=== PATIENT | female | born 1995 | race Caucasian/White ===

== ENCOUNTER 2020-08-21 09:53 | Emergency (ER) | payer MEDICAID, SELFPAY ==
[2020-08-21 10:18] VITALS: BP 131/89; PULSE 74; RESP 19; TEMP 36.9; O2SAT 100; BMI 20.5
--- NOTE | 2020-08-21 10:35 | HMH.EDUTC ---
[facility] [place] Disposition Clinical Impression: Sinusitis Qualifiers: Sinusitis location: maxillary Chronicity: acute Recurrence: non-recurrent Qualified Code(s): J01.00 - Acute maxillary sinusitis, unspecified Disposition: Home, Self-Care Condition on Discharge: Good Instructions: Sinusitis, DI for Sinusitis Additional Instructions: Start antibiotic patient to take as ordered for a full length of time even if you feel better. Sinus infections do not get better overnight. It may take 2-3 days to notice much improvement so be sure to use conservative measures as discussed for symptoms. Increase fluids Humidifier/vaporizer as needed Tylenol and ibuprofen as needed for fever or pain. If symptoms do not improve or get worse return or be seen in the ER Follow-up with primary care this week Prescriptions: Azithromycin [Zithromax 250mg tab] 250 mg PO DIRECTED #6 tab Transmission Status: Pending to [facility]/pharmacy #[id number] Referrals: Elisabeth Rock CNM [Primary Care Provider] - Time of Disposition: 11:16 Medical Decision Making - Georges Inquiry Pt receiving controlled substance: No Vital Signs: 08/21/20 10:18 Temperature 98.4 F Temperature Source Oral Pulse Rate [Right Brachial] 74 Respiratory Rate 19 Blood Pressure [Right Arm] 131/89 Blood Pressure Mean [Right Arm] 103 Blood Pressure Source [Right Arm] Automatic Cuff Blood Pressure Position [Right Arm] Sitting 02 Sat by Pulse Oximetry 100 Oxygen Delivery Method Room Air Orders (Tests/Meds): ORDERS Category Date Time Status Covid-19 Nasal PCR ([facility]) Routine Lab 08/21/20 10:40 Received [facility] [place] HPI - General Chief complaint: Urgent [facility] Stated complaint: head congestion Time Seen by Provider: 08/21/20 10:35 Mode of Arrival: Ambulatory Source of Information: Patient Limitations: No Limitations Description of Symptoms (Recalled from Triage Doc. by RN): PATIENT C/O BODY ACHES, SINUS PRESSURE, AND COUGH SINCE YESTERDAY HEENT Symptoms (Recalled from RN notes): Yes Resp Symptoms (Recalled from RN notes): Yes Skin Symptoms (Recalled from RN notes): No MS Symptoms (Recalled from RN notes): No Functional Status (Recalled from RN notes): WNL - History of Present Illness Provider Complaint: 25-year-old female presents for her green nasal congestion, pt states drainage started out clear and has changed to green thick.sinus pressure, sinus tenderness, cough and sore throat x2 days. Patient states low-grade fever. Patient states no ill contacts. Patient states she is 6 weeks . - Related Data Previous Rx's Medication Instructions Recorded Azithromycin [Zithromax 250mg 250 mg PO DIRECTED #6 tab 08/21/20 tab] Allergies Allergy/AdvReac Type Severity Reaction Status Date / Time No Known Allergies Allergy Verified 08/21/20 10:21 - Worker's Comp Is this a Worker's Comp case?: No [facility] History - Hepatitis A Screen Drug use history?: No High risk sexual behaviors?: No History of sexually transmitted infection?: No Currently employed?: No Childcare worker?: No Do you have indoor plumbing?: Yes Do you have electricity?: Yes Attestation statement:: This patient has been screened for Hepatitis A risk factors. I have reviewed the patient's past medical history: Yes - Social History Alcohol Intake: never Occupational Status: other ROS Obtained: Yes Systems reviewed as appropriate & no additional complaints - Constitutional Constitutional: Reports system reviewed and no additional complaints, except as docu, Reports body ache, Reports fever(s) - Eyes Eyes: Reports system reviewed and no additional complaints, except as docu, Denies dry eyes - ENT Ears, Nose, Mouth, and Throat: Reports system reviewed and no additional complaints, except as docu, Reports headache(s), Reports nasal congestion, Reports nasal discharge, Reports post nasal drip, Reports sinus pain, Reports sinus pressure, Reports sore throat - Card
[2020-08-21 11:23] VITALS: BP 131/89; PULSE 74; RESP 19; TEMP 36.9; O2SAT 100
[2020-08-21 14:28] LABS: UTC Influenza A Antigen Negative (Negative); UTC Influenza B Antigen Negative (Negative)
== END 2020-08-21 11:25 | disposition home or self-care (01) ==
PROVIDERS: Emergency Provider Nurse Practitioner Family; PCP Advanced Practice Midwife
DX: Z20.828 Contact with and (suspected) exposure to other viral communicable diseases (principal); J01.00 Acute maxillary sinusitis, unspecified
CPT/HCPCS: 87804; 99201; U0003

== ENCOUNTER 2024-09-19 09:02 | Emergency (ER) | payer BC, SELFPAY ==
--- OUTSIDE RECORDS SUMMARY | 2024-09-19 09:08 | XMS_ITS | Encounter Summary ---
Author Organization [facility] Address [address] [place] [address] Care Team Providers Care Cigar Maker Name Role Phone Pcp, No Primary Care Provider Unavailabl e Reason for Visit * Reason Comments Nurse Visit Pre-op COVID swab Encounter Details Date Type Department Care Team (Latest Contact Info) Description 01/22/2022 3:15 PM EDT Clinical Support Medical Office Building Obstetrics and Gynecology [address], [address] [place] [address] Healthcare maintenance Social History Tobacco Use Types Packs/Day Years Used Date Smoking Tobacco: Never Smokeless Tobacco: Never Alcohol Use Standard Drinks/Week Comments Never 0 (1 standard drink = 0.6 oz pur e alcohol) Comments No Sex and Gender Information Value Date Recorded Sex Assigned at Not on file Legal Sex Female 6:27 PM EDT Gender Identity Female 04/27/2021 10:22 AM EDT Sexual Orientation Not on file COVID-19 Exposure Response Date Recorded In the last month, have you been in contact with someone who was confirmed or suspected to have Coronavirus / COVID-19? No / Unsure 01/22/2022 1:26 PM EDT documented as of this encounter Miscellaneous Notes * Progress Notes - Bassam Hayward, RN - 01/22/2022 3:15 PM EDT Encounter for pre-operative COVID swab prior to surgery scheduled with Dr. Dumas on 01/24/22. Procedure reviewed and verbal consent obtained prior to testing. Tolerated well. Specimen walked to the lab. documented in this encounter Plan of Treatment Upcoming Encounters Date Type Department Care Team (Late st Contact Info) Description 09/21/2024 2:00 PM EST Office Visit [facility] [address], [address] [place] [address] Mitra Callaway APRN, CNM [address] [place] [address] documented as of this encounter Procedures Procedure Name Priority Date/Time Associated Diagnosis Comments SARS COV-2/COVID-19 BY PCR Routine 01/22/2022 3:11 PM EDT Healthcare maintenance documented in this encounter Results * SARS CoV-2/COVID-19 by PCR (01/22/2022 3:11 PM EDT) SARS CoV-2/COVID-1 9 RNA PCR Result Not Detected Not Detected 01/23/2022 2:43 AM EDT [facility] Swab Nasopharyngeal structure / Unknown Non-blood Collection / Unknown 01/22/2022 3:11 PM EDT 01/22/2022 4:24 PM EDT Narrative [facility] - 01/23/2022 2:43 AM EDT This assay is for in vitro diagnostic use under FDA emergency use authorization only. Negative results do not preclude infection with the SARS CoV-2 virus and should not be the sole basis of a patient treatment/management or public health decision. Follow up testing should be performed according to the current CDC recommendations. This test was performed using the TaqPath COVID-19 assay, an [id number] method. The limit of detection (LoD) for this assay is 250 copies/mL. Use of the TaqPath COVID-19 assay in an asymptomatic screening population is intended to be used as part of an infection control plan that may include additional preventative measures, such as a predefined serial testing plan or directed testing of high-risk individuals. Negative results should be considered presumptive and do not preclude current or future infection obtained through community transmission or other exposures. Negative results must be considered in the context of an individual's recent exposures, history, presence of clinical signs and symptoms consistent with COVID-19. us Hugo Dumas MD LAB MICROBIOLOGY - GENERAL OR DERABLES Final Result [facility] [address] [place] [address] documented in this encounter Visit Diagnoses Diagnosis Healthcare maintenance documented in this encounter Care Teams Cigar Maker Relationship Specialty Start Date End Date Pcp, No PCP - General 04/06/21 05/22/24 documented as of this encounter
--- OUTSIDE RECORDS SUMMARY | 2024-09-19 09:08 | XMS_ITS | Encounter Summary ---
Author Organization [facility] Address [address] [place] [address] Care Team Providers Care Plant Engineering Supervisor Name Role Phone Pcp, No Primary Care Provider Unavailabl e Encounter Details Date Type Department Care Team ([facility] Contact Info) Description 12/14/2021 Telephone Medical Office Building Obstetrics and Gynecology [address], [address] [place] [address] [place] [address] Social History Tobacco Use Types Packs/Day Years [...] have Coronavirus / COVID-19? No / Unsure 12/14/2021 8:44 AM EST documented as of this encounter Miscellaneous Notes * Telephone Encounter - Rochelle Tierney - 12/14/2021 11:30 AM EST Attempt to contact patient, left voice mail. documented in this encounter Plan of Treatment Upcoming Encounters Date Type Department Care Team ([facility] Contact Info) Description 09/21/2024 2:00 PM EST Office Visit [facility] [address], [address] [place] [address] Mitra Callaway APRN, CNSiddharth [address] [place] [address] documented as of this encounter Visit Diagnoses Not on filedocumented in this encounter Care Teams Plant Engineering Supervisor Relationship Specialty Start Date End Date Pcp, No PCP - General 04/06/21 05/22/24 documented as of this encounter
--- OUTSIDE RECORDS SUMMARY | 2024-09-19 09:08 | XMS_ITS | Encounter Summary ---
Author Organization Healthcare Address [address] [place] [address] Care Team Providers Care Bath Mixer Name Role Phone Pcp, No Primary Care Provider Unavailabl e Reason for Visit * Auth/Cert Specialty Diagnoses / Procedures Referred By Contac t Referred To Contact Diagnoses Sterilization consult Sterilization consult [Z30.09] Procedures MN LAP,TUBAL CAUTERY MN LAP,RMV ADNEXAL STRUCTURE LAPAROSCOPIC BILATERAL SALPINGECTOMY Hugo Dumas MD [address] [address] Phone: tel: fax: [facility] Operating Room [address] [place] [address] Phone: tel: Referral ID Status Reason Start Date Expiration Date Visits Re quested Visits Authorized [id number] 1 1 Encounter Details Date Type Department Care Team (Late st Contact Info) Description 01/24/2022 7:30 AM EDT - 01/24/2022 9:30 AM EDT Surgery [facility] Operating Room [address] [place] [address] Hugo Dumas MD [address] [address] LAPAROSCOPIC BILATERAL SALPINGECTOMY [51026 (CPT??)] Surgery Details Date/Time Status Location OR Service Patient Class Case Class Case Type Trauma Case? 01/24/2022 7:30 AM Posted [facility] 04 [facility] Outpatient Surgery E-Electi ve Panel 1 Procedure LRB Anes Op Region Wound Class Comments LAPAROSCOPIC BILATERAL SALPINGECTOMY Bilateral General Class I/ Clean Surgeon Surgeon Role Service Panel Hugo Dumas MD Primary Gynecology 1 Maida Cooper MD Resident - Assisting 1 documented in this encounter Social History Tobacco Use Types Packs/Day Years [...] have Coronavirus / COVID-19? No / Unsure 01/24/2022 6:15 AM EDT documented as of this encounter Last Filed Vital Signs Vital Sign Reading Time Taken Comments Blood Pressure 111/76 01/24/2022 9:15 AM EDT Pulse 78 01/24/2022 9:15 AM EDT Temperature 36.3 ??C (97.4 ??F) 01/24/2022 9:15 AM ED T Respiratory Rate 9 01/24/2022 9:15 AM EDT Oxygen Saturation 97% 01/24/2022 9:15 AM EDT Inhaled Oxygen Concentration - - Weight 51.6 kg (113 lb 12.1 oz) 01/24/2022 6:22 AM EDT Height 162.6 cm (5' 4 ) 01/24/2022 6:22 AM EDT Body Mass Index 19.53 01/24/2022 6:22 AM EDT documented in this encounter Discharge Instructions * Discharge Instructions* Aura Liu - 01/24/2022 9:06 AM EDT Tylenol 1,000mg given in PACU at 0900 AM today. * Attachments The following attachments cannot be sent through Care Everywhere. * Oxycodone Oral Capsule 5 mg (Maldivian) * Ibuprofen Oral Capsule 200 mg (Maldivian) * Laceration: Skin Adhesive (Maldivian) documented in this encounter Medications at Time of Discharge ibuprofen 600 MG tablet Take 1 tablet (600 mg total) by mouth every 6 (six) hours if needed for mild pain for up to 10 days. 30 tablet 01/24/2022 02/03/2022 oxyCODONE (Roxicodone) 5 MG immediate release tablet Take 1 tablet (5 mg total) by mouth every 4 (four) hours if needed for moderate pain or severe pain. 5 tablet 01/24/2022 03/25/2022 documented as of this encounter Miscellaneous Notes * Anesthesia PACU Signout - Sahil Corona MD - 01/24/2022 8:57 AM EDT Patient: Minda Ngo Anesthesia Type: general Vitals Value Taken Time BP 108/75 01/24/22 0845 Temp 36.3 ??C (97.3 ??F) 01/24/22 0830 Pulse 75 01/24/22 0856 Resp 13 01/24/22 0856 SpO2 98 % 01/24/22 0856 Vitals shown include unvalidated device data. Anesthesia PACU Signout Patient location during evaluation: PACU Level of consciousness: baseline Pain management: adequate (pain score 0-3) Airway patency: natural airway Hydration status: acceptable PONV: none Cardiovascular status: acceptable Respiratory status: acceptable Discharge Disposition: home Cosigned by Kingsley Meneses MD at 01/24/2022 9:14 AM EDT * Op Note - Maida Cooper MD - 01/24/2022 7:59 AM EDT Operative Note Date: 01/24/22 Location: [facility] OR Name: Minda Ngo, : 1995, Diagnoses: Pre-op Diagnosis Sterilization consult Post-op Diagnosis Sterilization consult Procedure(s): Laparoscopic bilateral salpingectomy Attending Surgeon(s): * Hugo Dumas - Primary Forestry Scientist(s): Maida Cooper MD Anesthesia: General ASA: II Blood Administration: Blood Product Administration History None Estimated Blood Loss: Minimal Drains: [REMOVED] Urethral Catheter Non-latex 16 Fr. (Removed) Specimen: Specimens ID Source Frozen? 1 Fallopian Tube, Bilateral Description: bilateral fallopian tubes Findings: 1. Normal appearing external genitalia, bilateral ovaries and fallopian tubes, cervix and uterus. Indications: Minda Ngo is an 26 y.o. female who is having surgery for Sterilization consult [Z30.09]. She desired permanent sterilization and had signed her KMA 12/14/21. All questions were answered and she understood all risks/benefits/alternatives. Narrative: After the consent was reviewed in the holding room, the patient was brought to the operating suite,where she was induced into GETA without complication. She was then placed in dorsal lithotomy position with her arms tucked, prepped and draped in sterile fashion, and a catheter was placed. A Avinger uterine manipulator was placed. An infraumbilical incision was then made, 5mm in size and a trocar was introduced via optiview technique. This was followed by placement of a right and left lateral trocar, 5mm in size. She was then placed in Trendelenburg position. The uterus was then elevated and retracted to the left. The left fallopian was elevated and sequentially ligated and transected, running from the fimbrae toward the cornea using Ligasure device. It was transected at the cornea and removed out of the 5mm trocar under direct visualization. The same process was completed on the right. Everything was found to be hemostatic. The trocars were then removed and all skin incisions were closed with 4-0 monocryl suture. All instruments were removed from the vagina. The patient was taken out of lithotomy position, extubated, and taken to the PACU in stable condition without a Schmidt catheter. Sponge, lap, and needle counts were correct x2. was present and scrubbed for the entirety of the procedure. Complications: None; patient tolerated the procedure well. Submitted by: Maida Cooper MD - 01/24/2022 - 8:42 AM Cosigned by Hugo Dumas MD at 01/27/2022 6:04 PM EDT Associated attestation - Hugo Dumas MD - 01/27/2022 6:04 PM EDT I was present for the entirety of the procedure(s). * Interval H&P Note - Maida Cooper MD - 01/24/2022 7:19 AM EDT H&P reviewed. The patient was examined and there are no changes to the H&P. Source Note - Hugo Dumas MD - 01/18/2022 3:45 PM EDT Gynecology Preoperative History and Physical Subjective Minda Ngo is a 26 y.o. here for a preoperative visit. Planned Procedure: Laparoscopic Bilateral Salpingectomy on 01/24/2022 HPI 26 yo scheduled for Laparoscopic Bilateral Salpingectomy on 01/24/2022. She is doing well today with no complaints. No changes in her medical history. Risks/benefits/alternatives to procedure discussed today and consent signed. All questions answered. Past 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 She has a past medical history of Chlamydia trachomatis infection in in third trimester (04/26/2021), COVID (06/2021), Depression, Encounter for routine follow-up, Irregular menstruation, unspecified, Other specified anxiety disorders, Personal history of other diseases of the nervous system and sense organs, Personal history of other infectious and parasitic diseases, Personal history of other specified conditions, Personal history of other specified conditions, and Personal history of urinary (tract) infections.She has no past medical history of Hepatitis B, Hepatitis C,or HIV disease (CMS/HCC). Past Surgical History She has no past surgical history on file. Social History She reports that she has never smoked. She has never used smokeless tobacco. She reports that she does not drink alcohol and does not use drugs. Family History Her family history includes Autism in an other family member; Melanoma in her paternal grandfather;Thyroid cancer in her father's sister; Thyroid disease in her paternal grandmother and paternal great-grandmother. Current Medications Current Outpatient Medications Medication Instructions ??? norethindrone (MICRONOR) 0.35 mg, Oral, Daily Allergies No Known Allergies Review of Systems Constitutional: Negative. Respiratory: Negative. Cardiovascular: Negative. Gastrointestinal: Negative. Endocrine: Negative. Genitourinary: Negative. Musculoskeletal: Negative. Neurological: Negative. Hematological: Negative. Psychiatric/Behavioral: Negative. Objective Visit Vitals BP 126/81 Body mass index is 19.68 kg/m??. Physical Exam Constitutional: Appearance: Normal appearance. Cardiovascular: Rate and Rhythm: Normal rate and regular rhythm. Heart sounds: Normal heart sounds. Pulmonary: Effort: Pulmonary effort is normal. Breath sounds: Normal breath sounds. Psychiatric: Mood and Affect: Mood normal. Behavior: Behavior normal. Thought Content: Thought content normal. Assessment/Plan 26 yo scheduled for Laparoscopic Bilateral Salpingectomy on 01/24/2022 ?? 1. Preop - Risks/benefits/alternatives to procedure discussed today and consent signed. All questions answered. KMA previously signed. * Significant Event - Azul Sandoval RN - 01/24/2022 6:16 AM EDT Di presurgery shower as directed by dr dumas's office * Preprocedure Instructions - Taylor Foster - 01/03/2022 1:46 PM EST Current Medications Medication Instructions ??? norethindrone (Micronor) 0.35 MG tablet Take morning of surgery General Preoperative Instructions You will be called the business day before surgery with your arrival time Do not eat or drink anything after midnight except water with your medications unless other instructions are given No alcohol or smoking prior to surgery Arrive on time to avoid delays Parking/Registration procedure explained You MUST have a responsible adult available for transport to and from hospital Visitation policy for the day of surgery reviewed Bring insurance card, photo ID, along with power of staff attorney, guardianship or advanced directives if applicable Do not bring money, jewelry or other valuables Hibiclens bathing instructions reviewed if applicable Notify surgeon of fever, illness, any changes or if you decide not to have surgery Pediatric patients under 12 years of age (If applicable) No solid food or milk after midnight Formula 6 hours prior to arrival for surgery Breast milk 4 hours prior to arrival surgery Clear liquids 2 hours prior to arrival for surgery Diabetes Instructions (If applicable) Take diabetes medication as instructed You may have up to 4 ounces of apple juice 2 hours prior to arrival for surgery for low glucose documented in this encounter Plan of Treatment Upcoming Encounters Date Type Department Care Team (Late st Contact Info) Description 09/21/2024 2:00 PM EST Office Visit [facility] [address], [address] [place] [address] Mitra Callaway, DANNIELLE, CNM [address] [place] [address] documented as of this encounter Procedures Procedure Name Priority Date/Time Associated Diagnosis Comments SURGICAL PATHOLOGY EXAM Routine 01/24/2022 8:09 AM EDT Sterilization consult MN LAP,TUBAL CAUTERY 01/24/2022 7:19 AM EDT Sterilization consult CBC W/O DIFFERENTIAL STAT 01/24/2022 6:41 AM EDT TYPE AND SCREEN Routine 01/24/2022 6:41 AM EDT POCT , URINE Routine 01/24/2022 6:20 AM EDT documented in this encounter Results * Surgical Pathology Exam (01/24/2022 8:09 AM EDT) Case Report Surgical Pathology ?Case: [id number] ? Authorizing Provider: ??Hugo Dumas MD ?Collected: ? 01/24/2022 0809 ? Ordering Location: ? [facility] Operating [facility] ? Received: ?01/24/2022 1033 ? Pathologist: ? Jessica White MD ? Specimen: ?Fallopian Tube, Bilateral, bilateral fallopian tubes ? 01/29/2022 8:22 AM EDT [facility] Final Diagnosis FALLOPIAN TUBES, BILATERAL SALPINGECTOMY: - Complete cross-sections of unremarkable fallopian tubes. 01/29/2022 8:22 AM EDT [facility] Clinical Information Sterilization 01/29/2022 8:22 AM EDT [facility] Gross Description A. BILATERAL FALLOPIAN TUBES Received in formalin labeled bilateral fallopian tubes , and consists of 2 red/purple, undesignated fallopian tubes with attached fimbriae measuring 4.4 x 1.7 x 0.4 cm- inked blue, and 5.3 x 2.1 x 0.6 cm. Sectioning reveals a pink pinpoint lumen. The fimbriae are longitudinally bisected. Retinal Angiographer sections are submitted in cassette A1. Nicole Nair 01/29/2022 8:22 AM EDT [facility] Note: A resident was involved in the service. I attest I examined the relevant preparations for the specimens and confirmed the diagnosis or interpretation. 01/29/2022 8:22 AM EDT [facility] Tissue Both fallopian tubes / Unknown 01/24/2022 8:09 AM EDT 01/24/2022 10:33 AM EDT Comment:Pre-op diagnosis: Sterilization consult [Z30.09] Hugo Dumas MD LAB PATHOLOGY ORDERABLES Dahiana l Result [facility] [address] [place] [address] * Type and screen (01/24/2022 6:41 AM EDT) ABO/Rh O Positive 01/24/2022 6:11 AM EDT BLOOD BANK Antibody Screen Negative 01/24/2022 6:11 AM EDT BLOOD BANK Blood Venous blood specimen / Unknown Venipuncture / Unknown 01/24/2022 6:41 AM EDT 01/24/2022 6:47 AM EDT Hugo Dumas MD LAB BLOOD BANK TEST ORDERABLE S Final Result BLOOD BANK [address] [place] [address], * CBC (01/24/2022 6:41 AM EDT) WBC Count 8.04 3.70 - 10.30 10*3/uL LAB HEMATOLOGY METHOD 01/24/2022 6:49 AM EDT [facility] RBC Count 4.82 3.90 - 5.20 10*6/uL LAB HEMATOLOGY METHOD 01/24/2022 6:49 AM EDT [facility] HGB 14.3 11.2 - 15.7 g/dL LAB HEMATOLOGY METHOD 01/24/2022 6:49 AM EDT [facility] HCT 42.7 34.0 - 45.0 % LAB HEMATOLOGY METHOD 01/24/2022 6:49 AM EDT [facility] Platelet Count 263 155 - 369 10*3/uL LAB HEMATOLOGY METHOD 01/24/2022 6:49 AM EDT [facility] MCV 89 79 - 98 fL LAB HEMATOLOGY METHOD 01/24/2022 6:49 AM EDT [facility] MCH 29.7 26.0 - 32.0 pg LAB HEMATOLOGY METHOD 01/24/2022 6:49 AM EDT [facility] MCHC 33.5 30.7 - 35.5 g/dL LAB HEMATOLOGY METHOD 01/24/2022 6:49 AM EDT [facility] RDW 11.9 11.5 - 14.5 % LAB HEMATOLOGY METHOD 01/24/2022 6:49 AM EDT [facility] MPV 8.9 8.8 - 12.5 fL LAB HEMATOLOGY METHOD 01/24/2022 6:49 AM EDT [facility] nRBC 0.0 <=0.0 per 100 WBCs LAB HEMATOLOGY METHOD 01/24/2022 6:49 AM EDT [facility] Blood Venous blood specimen / Unknown Venipuncture / Unknown 01/24/2022 6:41 AM EDT 01/24/2022 6:46 AM EDT us Hugo Dumas MD LAB BLOOD ORDERABLES Final Re sult [facility] [address] [place] [address] * POCT Urine (01/24/2022 6:20 AM EDT) Urine - Point of Care Negative - women after 7 weeks gestation and dilute urine (specific gravity <1.010) may have false negative results. Plasma HCG testing is recommended. Test performed at Point of Care. Negative - women after 7 weeks gestation and dilute urine (specific gravity <1.010) may have false negative results. Plasma HCG testing is recommended. Test performed at Point of Care. INTERNAL QC OK, PREG URINE ok KIT LOT NUMBER, PREG URINE [id number] KIT EXPIRATION DATE, PREG URINE 01/25/2023 Urine Urine specimen obtained by clean catch procedure / Unknown 01/24/2022 6:20 AM EDT us Hugo Dumas MD POINT OF CARE TEST ENTER/EDIT ORDERABLES Final Result documented in this encounter Visit Diagnoses Diagnosis Care and examination of lactating mother- Primary Sterilization consult Other general counseling and advice for contraceptive management Sterilization consult Other general counseling and advice for contraceptive management documented in this encounter Admitting Diagnoses Diagnosis Care and examination of lactating mother documented in this encounter Administered Medications Inactive Administered Medications - up to 3 most recent administrations Medication Order MAR Action Action Date Dose Rate Site acetaminophen (Tylenol) tablet 1,000 mg 1,000 mg, Oral, Once as needed, 1 dose, Starting on Sat01/24/22 at 0858, Until Sat01/24/22 at 0903, Routine, Recovery (Phase I only), mild pain, pain level >1 out of 10 Given 01/24/2022 9:03 AM EDT 1,000 mg bupivacaine PF (Marcaine) 0.25 % injection As needed, Starting on Sat01/24/22 at 0811, Until Sat01/24/22 at 0827, Routine, Intraprocedure Given 01/24/2022 8:11 AM EDT 7 mL Abdominal Tissue fentaNYL (Sublimaze) injection 50 mcg 50 mcg, Intravenous, As needed, 2 doses, Starting on Sat01/24/22 at 0821, Until Sat01/24/22 at 1156, Routine, Recovery (Phase I only), severe pain, pain score of 5 to 8 out of 10. For 2 doses only! HYDROcodone-acetaminoph en (Social Circle) 5-325 MG per tablet 1 tablet 1 tablet, Oral, Once as needed, 1 dose, Starting on Sat01/24/22 at 0821, Until Sat01/24/22 at 1156, Routine, Recovery (Phase I only), severe pain, for pain 3-4 out of 10 lactated Ringer's infusion 100 mL/hr, Intravenous, Once, 1 dose, On Sat01/24/22 at 0700, Routine New Bag 01/24/2022 6:54 AM EDT 100 mL/hr 100 mL/hr lactated Ringer's infusion 100 mL/hr, Intravenous, Continuous, Starting on Sat01/24/22 at 0845, Until Sat01/24/22 at 1156, Routine sodium chloride 0.9 % flush 10 mL 10 mL, Intravenous, Every 12 hours, First dose on Sat01/24/22 at 0700, Until Discontinued, Routine, Holding - Preprocedure documented in this encounter Active and Recently Administered Medications Times are shown in EDT. Scheduled Medication Order 01/22/2022 01/23/2022 01/24/2022 lactated Ringer's infusion (COMPLETED) 100 mL/hr, Intravenous, Once, 1 dose, On Sat01/24/22 at 0700, Routine 0654 (New Bag - Prov ider: Azul Sandoval RN) sodium chloride 0.9 % flush 10 mL(Linked Group 1) 10 mL, Intravenous, Every 12 hours, First dose on Sat01/24/22 at 0700, Until Discontinued, Routine, Holding - Preprocedure 0700 (Canceled Entry - Provider: Automatic Discharge Provider - Comment: Automatically canceled at discontinue of medication order) Continuous Medication Order 01/22/2022 01/23/2022 01/24/2022 lactated Ringer's infusion 100 mL/hr, Intravenous, Continuous, Starting on Sat01/24/22 at 0845, Until Sat01/24/22 at 1156, Routine 0845 (Canceled Entry - Provider: Automatic Discharge Provider - Comment: Automatically canceled at discontinue of medication order) PRN Medication Order 01/22/2022 01/23/2022 01/24/2022 acetaminophen (Tylenol) tablet 1,000 mg (COMPLETED) 1,000 mg, Oral, Once as needed, 1 dose, Starting on Sat01/24/22 at 0858, Until Sat01/24/22 at 0903, Routine, Recovery (Phase I only), mild pain, pain level >1 out of 10 0903 (Given - Provid er: Aura Liu) bupivacaine PF (Marcaine) 0.25 % injection (CANCELED) As needed, Starting on Sat01/24/22 at 0811, Until Sat01/24/22 at 0827, Routine, Intraprocedure 0811 (Given - Provid er: Hugo Dumas MD) fentaNYL (Sublimaze) injection 50 mcg 50 mcg, Intravenous, As needed, 2 doses, Starting on Sat01/24/22 at 0821, Until Sat01/24/22 at 1156, Routine, Recovery (Phase I only), severe pain, pain score of 5 to 8 out of 10. For 2 doses only! HYDROcodone-acetaminophen (Social Circle) 5-325 MG per tablet 1 tablet 1 tablet, Oral, Once as needed, 1 dose, Starting on Sat01/24/22 at 0821, Until Sat01/24/22 at 1156, Routine, Recovery (Phase I only), severe pain, for pain 3-4 out of 10 Linked Groups Order Group 1: Insert peripheral IV (CANCELED) Once, On Sat01/24/22 at 0633, For 1 occurrence, Holding - Preprocedure And Saline lock IV (CANCELED) Once, On Sat01/24/22 at 0633, For 1 occurrence, Holding - Preprocedure And sodium chloride 0.9 % flush 10 mLJump to med 10 mL, Intravenous, Every 12 hours, First dose on Sat01/24/22 at 0700, Until Discontinued, Routine, Holding - Preprocedure documented in this encounter Care Teams Bath Mixer Relationship Specialty Start Date End Date Pcp, No PCP - General 04/06/21 05/22/24 documented as of this encounter
--- OUTSIDE RECORDS SUMMARY | 2024-09-19 09:08 | XMS_ITS | Encounter Summary ---
Author Organization Healthcare Address [address] [place] [address] Care Team Providers Care Decorator Mannequin Name Role Phone Pcp, No Primary Care Provider Unavailabl e Encounter Details Date Type Department Care Team (Latest Contact Info) Description 01/22/2022 Travel Social History Tobacco Use Types Packs/Day Years [...] PM EDT documented as of this encounter Plan of Treatment Upcoming Encounters Date Type Department Care Team (Late st Contact Info) Description 09/21/2024 2:00 PM EST Office Visit [facility] [address], [address] [place] [address] Mitra Callaway APRN, CNM [address] [place] [address] documented as of this encounter Visit Diagnoses Not on filedocumented in this encounter Care Teams Decorator Mannequin Relationship Specialty Start Date End Date Pcp, No PCP - General 04/06/21 05/22/24 documented as of this encounter
--- OUTSIDE RECORDS SUMMARY | 2024-09-19 09:08 | XMS_ITS | Encounter Summary ---
Author Organization Healthcare Address [address] [place] [address] Care Team Providers Care Driver License Reviewing Officer Name Role Phone Pcp, No Primary Care Provider Unavailabl e Reason for Visit * Auth/Cert Specialty Diagnoses / Procedures Referred By Contac t Referred To Contact Diagnoses Sterilization consult Sterilization consult [Z30.09] Procedures AL LAP,TUBAL CAUTERY AL LAP,RMV ADNEXAL STRUCTURE LAPAROSCOPIC BILATERAL SALPINGECTOMY Hugo Dumas MD [address] [address] Phone: tel: fax: [facility] Operating Room [address] [place] [address] Phone: tel: Referral ID Status Reason Start Date Expiration Date Visits Re quested Visits Authorized [id number] 1 1 Encounter Details Date Type Department Care Team (Late st Contact Info) Description 01/24/2022 7:29 AM EDT Anesthesia Event [facility] Operating Room [address] [place] [address] Agnes Perez MD [address] [place] [id number] Anesthesia Record Procedure Summary Procedure Name Responsible Anesthesiologist Anesthesia Start Time Anesthesia Stop Time LAPAROSCOPIC BILATERAL SALPINGECTOMY (Bilateral) Agnes Perez MD 01/24/22 0729 01/24/22 0833 Events Date Time Event Comment 01/24/2022 0729 An Start 0734 In Room 0734 An Start Data 0738 An Induction The patient was reevaluated immediately before moderate or deep sedation use and before anesthesia induction. 0741 An Intubation 0747 Anesthesia Ready 0759 Proc Start 0819 Proc Fin 0824 An Extubation 0826 an stop data 0827 Out of Room 0829 AN Equip Check 0833 Handoff to Receiving I compl eted my handoff to the receiving clinician during which we: 1. Identified the patient 2. Identified the responsible provider 3. Reviewed the pertinent medical history 4. Discussed the surgical course 5. Reviewed intra-op anesthesia management and issues during anesthesia 6. Set expectations for post-procedure period 7. Allowed opportunity for questions and acknowledgement of understanding. 0833 An Stop Meds Name Total midazolam (Versed) injection 1 mg/mL 2 m g fentaNYL (Sublimaze) injection 50 mcg/mL 100 mcg lidocaine PF (Xylocaine-MPF) 2% 4 mL propofol (Diprivan) injection 10 mg/mL 1 50 mg rocuronium (ZeMuron) injection 10 mg/mL 40 mg dexamethasone (Decadron) injection 4 mg/ mL 4 mg HYDROmorphone PF (Dilaudid) injection 1 mg/mL 0.5 mg ondansetron (Zofran) injection 2 mg/mL 4 mg lactated Ringer's infusion 600 mL * Agents Name O2 N2O Air Sevoflurane Inspired Sevoflurane N2O Inspired N2O * Blood No blood administrations on file. Lines, Drains, and Airways Type Details Placement Removal Wound 01/24/22; 0759; N; Y es; Incision; Abdomen 01/24/22 0759 by Corine Red RN Peripheral IV Placement Date: 12/28 ; Placement Time: 638; Catheter Size: 20 G; Orientation: Posterior, Right; Location: Hand; Site Prep: Chlorhexidine ; Local Anesth: None; Technique: Anatomical landmarks; Inserted by: Azul Sandoval RN; Insertion Attempts: 1; Patient Tolerance: Tolerated well; Removal Date: 01/24/22; Removal Time: 924; Removal Reason: Discharge 01/24/22 06 by Azul Sandoval RN 01/24/22924 by Aura Liu ETT Placement Date: 12/28 ; Placement Time: 07 (created via procedure documentation); Mask Ventilation: 1; Technique: Direct laryngoscopy; Type: ETT - single; Single Lumen Tube Size: 7 mm; Cuffed: Yes; Laryngoscope: Castillo; Blade Size: 3; Location: Oral; Grade View: Grade I; Insertion Attempts: 1; Placement Verification: Auscultation, Capnometry; Placed by: MARIJA; Removal Date: 01/24/22; Removal Time: 0801/24/22 0741 by Hoa Funez CRNA 01/24/22 0824 by Hoa Funez CRNA Urethral Catheter Placement Date: 12/28 ; Placement Time: 0749; Inserted by: Maida Cooper; Type: Non-latex; Size: 16 Fr.; Balloon Size: 10 mL; Urine Returned: Yes; Removal Date: 01/24/22; Removal Time: 0801/24/22 0749 by Corine Red RN 01/24/22 0816 by Corine Red, RN documented in this encounter Social History Tobacco [...] AM EDT documented as of this encounter Miscellaneous Notes * Anesthesia Postprocedure Evaluation - Hoa Funez CRNA - 01/24/2022 8:33 AM EDT Patient: Minda Ngo Anesthesia Type: general Vitals Value Taken Time BP 121/77 01/24/22 0830 Temp 97.3 01/24/22 0833 Pulse 91 01/24/22 0831 Resp 17 01/24/22 0831 SpO2 100 % 01/24/22 0831 Vitals shown include unvalidated device data. Anesthesia Post Evaluation Patient location during evaluation: PACU Patient participation: complete - patient participated Level of consciousness: awake Pain management: adequate (pain score 0-3) Airway patency: natural airway Cardiovascular status: acceptable Respiratory status: acceptable, spontaneous ventilation and face mask Hydration status: acceptable No complications documented. * Anesthesia Procedure Notes - Hoa Funez CRNA - 01/24/2022 7:50 AM EDT Associated Order(s): Airway Airway Date/Time: 01/24/2022 7:41 AM Urgency: elective Airway not difficult General Information and Staff Patient location during procedure: OR MANAGER MOLECULAR: Hoa Funez CRNA Performed: MANAGER MOLECULAR Indications and Patient Condition Indications for airway management: anesthesia Spontaneous ventilation: present Preoxygenated: yes Patient position: sniffing Mask difficulty assessment: 1 - vent by mask No planned trial extubation Final Airway Details Final airway type: endotracheal airway Successful airway: ETT Cuffed: yes Successful intubation technique: direct laryngoscopy Facilitating devices/methods: intubating stylet Endotracheal tube insertion site: oral Blade: Castillo Blade size: #3 ETT size (mm): 7.0 Cormack-Lehane Classification: grade I - full view of glottis Placement verified by: chest auscultation and capnometry Measured from: lips ETT to lips (cm): 20 Number of attempts at approach: 1 Number of other approaches attempted: 0 * Anesthesia Preprocedure Evaluation - Lucius Laws MD - 01/24/2022 7:07 AM EDT Patient: Minda Ngo HPI 26 yo presents for permanent sterilization. She has a past medical history of Chlamydia trachomatis infection in in third trimester (04/26/2021), Depression. Presenting today for Lap Bilateral Salpingectomy. Procedure Information Date/Time: 01/24/22729 Procedure: LAPAROSCOPIC BILATERAL SALPINGECTOMY (Bilateral ) Location: [facility] OR Surgeons: Hugo Dumas MD Relevant Problems Anesthesia (within normal limits) Cardio (within normal limits) Endo (within normal limits) GI (within normal limits) /Renal (within normal limits) Neuro/Psych (within normal limits) Pulmonary (within normal limits) Clinical information reviewed: Med Hx Tobacco Allergies Surg Hx Fam Hx Soc Hx OB Status NPO Status Date of Last Liquid: 01/23/22 Time of Last Liquid: 1929 Date of Last Solid: 01/23/22 Time of Last Solid: 1929 Time of Last Void: 0615 Physical Exam Airway Mallampati: I Mouth opening: normal TM distance: >3 FB Neck ROM: full Cardiovascular - normal exam Dental - normal exam Pulmonary - normal exam Neurological - normal exam Oriented: normal to time, normal to place and normal to person and oriented to person, place and time Skin - normal exam Musculoskeletal - normal exam Extremities -normal exam Anesthesia Plan ASA 2 Anesthesia technique(s) discussed with the patient/family: General Anesthesia plan agreed upon was: general Anesthetic plan and risks discussed with patient. Additional Equipment Requests Cosigned by Agnes Perez MD at 01/24/2022 7:49 AM EDT documented in this encounter Plan of Treatment Upcoming Encounters Date Type Department Care Team (Late st Contact Info) Description 09/21/2024 2:00 PM EST Office Visit [facility] [address] [place] [address] Mitra Callaway APRN, CNM [address] [place] [address] documented as of this encounter Procedures Procedure Name Priority Date/Time Associated Diagnosis Comments PB ANESTHESIA PLACEHOLDER Routine 01/24/2022 7:41 AM EDT AL AN ELECTIVE ENDOTRACHEAL AIRWAY Routine 01/24/2022 7:41 AM EDT documented in this encounter Results * AL AN ELECTIVE ENDOTRACHEAL AIRWAY, PB ANESTHESIA PLACEHOLDER (01/24/2022 7:41 AM EDT) Narrative Hoa Funez CRNA - 01/24/2022 7:41 AM EDT Hoa Funez CRNA ? 01/24/2022 ??7:51 AM Airway Date/Time: 01/24/2022 7:41 AM Urgency: elective Airway not difficult General Information and Staff Patient location during procedure: OR MANAGER MOLECULAR: Hoa Funez CRNA Performed: MANAGER MOLECULAR Indications and Patient Condition Indications for airway management: anesthesia Spontaneous ventilation: present Preoxygenated: yes Patient position: sniffing Mask difficulty assessment: 1 - vent by mask No planned trial extubation Final Airway Details Final airway type: endotracheal airway Successful airway: ETT Cuffed: yes Successful intubation technique: direct laryngoscopy Facilitating devices/methods: intubating stylet Endotracheal tube insertion site: oral Blade: Castillo Blade size: #3 ETT size (mm): 7.0 Cormack-Lehane Classification: grade I - full view of glottis Placement verified by: chest auscultation and capnometry Measured from: lips ETT to lips (cm): 20 Number of attempts at approach: 1 Number of other approaches attempted: 0 us Agnes Perez MD ANESTHESIA ORDERABLES Final R esult documented in this encounter Visit Diagnoses Not on filedocumented in this encounter Administered Medications Inactive Administered Medications - up to 3 most recent administrations Medication Order MAR Action Action Date Dose Rate Site dexamethasone (Decadron) injection Intravenous, As needed, Starting on Sat01/24/22 at 0754, Until Sat01/24/22 at 08, Routine, Anesthesia Intraprocedure Given 01/24/2022 7:54 AM EDT 4 mg fentaNYL (Sublimaze) injection Intravenous, As needed, Starting on Sat01/24/22 at 0738, Until Sat01/24/22 at 08, Routine, Anesthesia Intraprocedure Given 01/24/2022 7:38 AM EDT 100 mcg HYDROmorphone PF (Dilaudid) injection Intravenous, As needed, Starting on Sat01/24/22 at 0759, Until Sat01/24/22 at 08, Routine, Anesthesia Intraprocedure Given 01/24/2022 7:59 AM EDT 0.5 mg lactated Ringer's infusion Intravenous, Continuous PRN, Starting on Sat01/24/22 at 0729, Until Sat01/24/22 at 0833, Routine New Bag 01/24/2022 7:29 AM EDT lidocaine PF (Xylocaine) 2 % injection Intravenous, As needed, Starting on Sat01/24/22 at 0738, Until Sat01/24/22 at 0833, Routine, Anesthesia Intraprocedure Given 01/24/2022 7:38 AM EDT 4 mL midazolam (Versed) injection Intravenous, As needed, Starting on Sat01/24/22 at 0732, Until Sat01/24/22 at 0833, Routine, Anesthesia Intraprocedure Given 01/24/2022 7:32 AM EDT 2 mg ondansetron (Zofran) injection Intravenous, As needed, Starting on Sat01/24/22 at 0814, Until Sat01/24/22 at 0833, Routine, Anesthesia Intraprocedure Given 01/24/2022 8:14 AM EDT 4 mg propofol (Diprivan) injection Intravenous, As needed, Starting on Sat01/24/22 at 0738, Until Sat01/24/22 at 0833, Routine, Anesthesia Intraprocedure Given 01/24/2022 7:38 AM EDT 150 mg rocuronium (ZeMuron) injection Intravenous, As needed, Starting on Sat01/24/22 at 0738, Until Sat01/24/22 at 0833, Routine, Anesthesia Intraprocedure Given 01/24/2022 7:38 AM EDT 40 mg documented in this encounter Care Teams Driver License Reviewing Officer Relationship Specialty Start Date End Date Pcp, No PCP - General 04/06/21 05/22/24 documented as of this encounter
--- OUTSIDE RECORDS SUMMARY | 2024-09-19 09:08 | XMS_ITS | Clinical Summary ---
Author Organization Healthcare Address [address] [place] [address] Care Team Providers Care Biomass Facilitator Name Role Phone Unavailable Primary Care Provider Unavailabl e Allergies No known active allergies Medications No known medications Active Problems Problem Noted Date Diagnosed Date Care and examination of lactating mother 021 Current mild episode of major depressive disorde r 04/06/2021 Resolved Problems Problem Noted Date Diagnosed Date Resolved Date Encounter for supervision of normal 04/27/20 21 06/13/2021 Chlamydia trachomatis infect ion in in third trimester 04/26/2021 06/13/2021 Overview (04/26/2021): S/p treatment 04/20 Encounter for supervision of low-risk first in second trimester 04/08/2017 06/13/2021 Immunizations Name Administration Dates Next Due Hep A, Adult 10/07/2018 Hep B, Adolescent or Pediatric (Deferred: Other - Documented on infant MAR) Influenza, injectable, quadr ivalent, preservative free 10/07/2018 Influenza, seasonal, injectable 08/30/2020 Tdap 02/01/2021,08/09/2017 Family History 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 Relation Name Comments Thyroid cancer Father's Sister Autism Other Melanoma Paternal Grandfather Thyroid disease Paternal Grandmother Thyroid disease Paternal Great-Grandmother Relation Name Status Comments Father's Sister Other Paternal Grandfather Paternal Grandmother Paternal Great-Grandmother Social History Tobacco Use Types Packs/Day Years [...] AM EDT Sexual Orientation Not on file Last Filed Vital Signs Vital Sign Reading Time Taken Comments Blood Pressure 117/74 03/06/2023 9:51 AM EDT Pulse 87 03/06/2023 9:51 AM EDT Temperature 36.3 ??C (97.4 ??F) 01/24/2022 9:15 AM ED T Respiratory Rate 9 01/24/2022 9:15 AM EDT Oxygen Saturation 97% 01/24/2022 9:15 AM EDT Inhaled Oxygen Concentration - - Weight 56.4 kg (124 lb 5.4 oz) 03/06/2023 9:51 A M EDT Height 162.6 cm (5' 4 ) 03/06/2023 9:51 AM EDT Body Mass Index 21.34 03/06/2023 9:51 AM EDT Plan of Treatment Upcoming Encounters Date Type Department Care Team (Late st Contact Info) Description 09/21/2024 2:00 PM EST Office Visit [facility] [address], [address] [place] [address] Mitra Callaway, NEURODIAGNOSTIC TECHNOLOGIST, CN [address] [place] [address] Health Maintenance Due Date Last Done Comments [facility]-Depression Screening 1996 [facility]-Infant/Child/Adol SDOH Screenings 1996 [facility]-Varicella Vaccines (1 of 2 - 13+ 2-dose series) 02/10/2009 [facility]- SDOH Screenings 02/10/2014 [facility]-Adult SDOH Screenings 02/10/2014 [facility]-Hepatitis B Vaccines (1 of 3 - 19+ 3-dose series) 02/10/2015 [facility]-Pap Smear 06/13/2024 06/13/2021, 10/10/2017 [facility]-FTFCE-05 Vaccine ( season) 2024 [facility]-Influenza Vaccine (#1) 06/28/202408/30, 10/07/2018, 08/02/2017, Additional history exists [facility]-DTaP,Tdap,and Td Vaccines (3 - Td or Tdap) 02/01/2031 02/01/2021, 08/09/2017 [facility]-Zoster Vaccines (1 of 2) 02/10/2046 [facility]-RSV Vaccine: 60+ Years or (1 - 1-dose 75+ series) 02/10/2071 [facility]-Hepatitis A Vaccines Aged Out 10/07/2018 No longer eligible based on patient's age to complete this topic [facility]-HIV Screening Completed 08/30/2020, 08/30/2020 [facility]-Hepatitis C Screening Completed 08/30/2020 [facility]-HIB Vaccines Aged Out No longer e ligible based on patient's age to complete this topic [facility]-HPV Vaccines Aged Out No longer e ligible based on patient's age to complete this topic [facility]-IPV Vaccines Aged Out No longer e ligible based on patient's age to complete this topic [facility]-Pneumococcal Vaccine: Pediatrics (0 to 5 Years) and At-Risk Patients (6 to 64 Years) Aged Out No longer eligible based on patient's age to complete this topic [facility]-Rotavirus Vaccines Aged Out No lo nger eligible based on patient's age to complete this topic Procedures Procedure Name Priority Date/Time Associated Diagnosis Comments PAP TEST - CYTOLOGY Routine 06/13/2021 2 :37 PM EDT Pap smear, as part of routine gynecological examination HEPATITIS C ANTIBODY W/REFLEX TO HCV QUANT PCR Routine 08/30/2020 10:01 AM EST HIV 1/2 ANTIBODY/ANTIGEN SCREEN WITH REFLEX TO HIV I/II DIFFERENTIATION Routine 08/30/2020 10:01 AM EST from Last 3 Months or Most Recently Relevant to Health Maintenance Results * Pap Test (06/13/2021 2:37 PM EDT) Case Report Cytology ?Case: [id number] ? Authorizing Provider: ??Mitra Callaway CNM ? Collected: ? 06/13/2021 1437 ? Ordering Location: ? [facility] Received: ?06/14/2021 0951 ? First Screen: ?Cristela Phillips, CT ? Rescreen: ?Dora Seth, CT ? Specimen: ?ThinPrep Pap Test, Liquid-Based Cervical/Vaginal, CERVICAL/VAGINAL ? 06/16/2021 3:59 PM EDT [facility] Interpretation NEGATIVE FOR INTRAEPITHELIAL LESION OR MALIGNANCY 06/16/2021 3:59 PM EDT [facility] Other Findings Inflammatory change. 06/16/2021 3:59 PM EDT [facility] Specimen Adequacy Satisfactory for evaluation; endocervical/ag sformation zone component present. Slide imaged by the ThinPrep Imaging system and selected 22 petit reviewed then full manual screening. 06/16/2021 3:59 PM EDT [facility] Cervical cytology is a screening test primarily for squamous cancers and precursors and has associated false negative and positive results. New technologies such as liquid based sampling may decrease but will not eliminate all false negative results. Regular screening and follow-up of unexplained clinical signs and symptoms are recommended to minimize false negative results. Please see the ASCCP website (www.asccp.org)fo r followup recommendations. If HPV testing was requested, correlation with the results is suggested (please call Microbiology at [phone] for results). 06/16/2021 3:59 PM EDT [facility] Menstrual Status Post- 021 3:59 PM EDT [facility] Contraceptive History Not Applicable 06/16/2021 3:59 PM EDT [facility] Last Menstrual Period 06/06/2020 06/16/2021 3:59 PM EDT [facility] Comment: Screening Type Routine Screen 2020 3:59 PM EDT [facility] High Risk? No 06/16/2021 3:59 PM EDT [facility] HPV Testing Requested? Request HPV testing if ASCUS or LSIL. 06/16/2021 3:59 PM EDT [facility] Previous Cancer History No 06/16/2021 3:59 PM EDT [facility] Swab Vaginal and cervical cytologic material / Unknown 06/13/2021 2:37 PM EDT 06/14/2021 9:51 AM EDT Mitra Callaway APRN, CNM LAB CYTOLOGY ORDERAB LES Final Result Performing Organization Address [facility] Co de Phone Number [facility] [address] [place] [address] * HIV 1 & 2 Antibody/Antigen Screen (08/30/2020 10:01 AM EST) Pathologist [facility] HIV 1 Result NONREACTIVE Screening for HIV 1 and 2 antibodies is NONREACTIVE. No confirmatory testing is required. [facility] 08/30/2020 10:0 1 AM EST 08/30/2020 11:53 AM EST Mitra Callaway APRN, COMPA LAB BLOOD ORDERABLES Final Result Performing Organization Address City/[facility]/ZIP Co de Phone Number [facility] * Hepatitis C Antibody (08/30/2020 10:01 AM EST) Hepatitis C Antibody NEGATIVE Reference Range: Negative [facility] 08/30/2020 10:0 1 AM EST 08/30/2020 11:53 AM EST Mitra Callaway APRN, COMPA LAB BLOOD ORDERABLES Final Result [facility]QUEST from Last 3 Months or Most Recently Relevant to Health Maintenance Insurance ANTH Advance Directives * Full Code (Latest Code Status on File) Date Activated Date Inactivated Comments 04/27/2021 9:35 AM 04/29/2021 3:05 PM Question Answer Comments Patient has decision-making capacity? Yes
--- OUTSIDE RECORDS SUMMARY | 2024-09-19 09:08 | XMS_ITS | Encounter Summary ---
Author Organization Healthcare Address [address] [place] [address] Care Team Providers Care Laboratory Sampler Name Role Phone Pcp, No Primary Care Provider Unavailabl e Encounter Details Date Type Department Care Team (Latest Contact Info) Description 03/06/2023 Travel Social History Tobacco Use Types Packs/Day [...] AM EDT Sexual Orientation Not on file documented as of this encounter Plan of Treatment Upcoming Encounters Date Type Department Care Team (Late st Contact Info) Description 09/21/2024 2:00 PM EST Office Visit [facility] [address] [place] [address] Mitra Callaway APRN, COMPA [address] [place] [address] documented as of this encounter Visit Diagnoses Not on filedocumented in this encounter Care Teams Laboratory Sampler Relationship Specialty Start Date End Date Pcp, No PCP - General 04/06/21 05/22/24 documented as of this encounter
--- OUTSIDE RECORDS SUMMARY | 2024-09-19 09:08 | XMS_ITS | Encounter Summary ---
Author Organization Healthcare Address [address] [place] [address] Care Team Providers Care Oil Filters Inspector Name Role Phone Pcp, No Primary Care Provider Unavailabl e Encounter Details Date Type Department Care Team (Late st Contact Info) Description 03/14/2023 Abstract [facility] [address], [address] [place] [address] Keerthi Avila APRN, CNM [address] [place] [address] Social History Tobacco Use Types Packs/Day Years [...] 2:00 PM EST Office Visit [facility] [address], [address] [place] [address] Mitra Callaway APRN, CNM [address] [place] [address] documented as of this encounter Visit Diagnoses Not on filedocumented in this encounter Care Teams Oil Filters Inspector Relationship Specialty Start Date End Date Pcp, No PCP - General 04/06/21 05/22/24 documented as of this encounter
--- OUTSIDE RECORDS SUMMARY | 2024-09-19 09:08 | XMS_ITS | Encounter Summary ---
Author Organization Healthcare Address [address] [place] [address] Care Team Providers Care Sound Effects Person Name Role Phone Pcp, No Primary Care Provider Unavailabl e Reason for Visit * Auth/Cert Specialty Diagnoses / Procedures Referred By Contac t Referred To Contact Diagnoses Sterilization consult Sterilization consult [Z30.09] Procedures KS LAP,TUBAL CAUTERY [place] LAP,RMV ADNEXAL STRUCTURE LAPAROSCOPIC BILATERAL SALPINGECTOMY Hugo Dumas MD [address] [address] Phone: tel: fax: [facility] [address] [place] [address] Phone: tel: Referral ID Status Reason Start Date Expiration Date Visits Re quested Visits Authorized [id number] 1 1 Encounter Details Date Type Department Care Team (Latest Contact Info) Description 01/24/2022 5:22 AM EDT - 01/24/2022 9:56 AM EDT Hospital Encounter [facility] [address] [place] [address] Hugo Dumas MD [address] [address] Sterilization consult Discharge Disposition: Home or Self Care Social History Tobacco Use Types Packs/Day Years [...] Everywhere. * Oxycodone Oral Capsule 5 mg (Puerto Rican) * Ibuprofen Oral Capsule 200 mg (Puerto Rican) * Laceration: Skin Adhesive ([place] Rican) documented in this encounter Medications at Time [...] AM EDT Operative Note Date: 01/24/22 Location: [facility] Name: Minda Ngo, : 1995, Diagnoses: Pre-op Diagnosis Sterilization consult Post-op Diagnosis Sterilization consult Procedure(s): Laparoscopic bilateral salpingectomy Attending Surgeon(s): Rayo Dumas - Primary Home Care Music Therapist(s): Maida Cooper MD Anesthesia: General ASA: II [...] fashion, and a catheter was placed. A Differential DynamicsticTictail uterine manipulator was placed. An infraumbilical incision [...] of Hepatitis B, Hepatitis C,or HIV disease ([facility]). Past Surgical History She has no past [...] card, photo ID, along with power of assistant attorney general, guardianship or advanced directives if applicable Do [...] 2:00 PM EST Office [facility] [address], [address] [place] [address] Mitra Callaway, DANNIELLE, CNM [address] [place] [address] documented as of this encounter Procedures Procedure Name Priority Date/Time Associated Diagnosis Comments SURGICAL PATHOLOGY EXAM Routine 01/24/2022 8:09 AM EDT Sterilization consult KS LAP,TUBAL CAUTERY 01/24/2022 7:19 AM EDT Sterilization consult CBC W/O DIFFERENTIAL STAT 01/24/2022 6:41 AM EDT TYPE AND SCREEN Routine 01/24/2022 6:41 AM EDT POCT , URINE Routine 01/24/2022 6:20 AM EDT documented in this encounter Results * Surgical Pathology Exam (01/24/2022 8:09 AM EDT) Case Report Surgical Pathology ?Case: [id number] ? Authorizing Provider: ??Hugo Dumas MD ?Collected: ? 01/24/2022 0809 ? Ordering Location: ? [facility] ? Received: ?01/24/2022 1033 ? Pathologist: ? Jessica White MD ? Specimen: ?Fallopian Tube, Bilateral, bilateral fallopian tubes ? 01/29/2022 8:22 AM EDT [facility] Final Diagnosis FALLOPIAN TUBES, BILATERAL SALPINGECTOMY: - Complete cross-sections of unremarkable fallopian tubes. 01/29/2022 8:22 AM EDT [facility] Clinical Information Sterilization 01/29/2022 8:22 AM EDT [facility] Gross Description A. BILATERAL FALLOPIAN TUBES Received in formalin labeled bilateral fallopian tubes , and consists of 2 red/purple, undesignated fallopian tubes with attached fimbriae measuring 4.4 x 1.7 x 0.4 cm- inked blue, and 5.3 x 2.1 x 0.6 cm. Sectioning reveals a pink pinpoint lumen. The fimbriae are longitudinally bisected. Wind Energy Project Manager sections are submitted in cassette A1. Nicole Nair 01/29/2022 8:22 AM EDT [facility] Note: A resident was involved in the service. I attest I examined the relevant preparations for the specimens and confirmed the diagnosis or interpretation. 01/29/2022 8:22 AM EDT [facility] Tissue Both fallopian tubes / Unknown 01/24/2022 8:09 AM EDT 01/24/2022 10:33 AM EDT Comment:Pre-op diagnosis: Sterilization consult [Z30.09] us Hugo Dumas MD LAB PATHOLOGY ORDERABLES Dahiana fair Result [facility] [address] [place] [address] * Type and screen (01/24/2022 6:41 AM EDT) ABO/Rh O Positive 01/24/2022 6:11 AM EDT BLOOD BANK Antibody Screen Negative 01/24/2022 6:11 AM EDT BLOOD BANK Blood Venous blood specimen / Unknown Venipuncture / Unknown 01/24/2022 6:41 AM EDT 01/24/2022 6:47 AM EDT us Hugo Dumas MD LAB BLOOD BANK TEST ORDERABLE S Final Result BLOOD BANK [address] [place] [address], * CBC (01/24/2022 6:41 AM EDT) WBC Count 8.04 3.70 - 10.30 10*3/uL LAB HEMATOLOGY METHOD 01/24/2022 6:49 AM EDT [facility] RBC Count 4.82 3.90 - 5.20 10*6/uL LAB HEMATOLOGY METHOD 01/24/2022 6:49 AM EDT [facility] HGB 14.3 11.2 - 15.7 g/dL LAB HEMATOLOGY METHOD 01/24/2022 6:49 AM EDT [facility] HCT 42.7 34.0 - 45.0 % LAB HEMATOLOGY METHOD 01/24/2022 6:49 AM EDT [facility] Platelet Count 263 155 - 369 10*3/uL LAB HEMATOLOGY METHOD 01/24/2022 6:49 AM EDT [facility] MCV 89 79 - 98 fL LAB HEMATOLOGY METHOD 01/24/2022 6:49 AM EDT [facility] MCH 29.7 26.0 - 32.0 pg LAB HEMATOLOGY METHOD 01/24/2022 6:49 AM EDT [facility] MCHC 33.5 30.7 - 35.5 g/dL LAB HEMATOLOGY METHOD 01/24/2022 6:49 AM EDT [facility] RDW 11.9 11.5 - 14.5 % LAB HEMATOLOGY METHOD 01/24/2022 6:49 AM EDT [facility] MPV 8.9 8.8 - 12.5 fL LAB HEMATOLOGY METHOD 01/24/2022 6:49 AM EDT [facility] nRBC 0.0 <=0.0 per 100 WBCs LAB HEMATOLOGY METHOD 01/24/2022 6:49 AM EDT [facility] Blood Venous blood specimen / Unknown Venipuncture / Unknown 01/24/2022 6:41 AM EDT 01/24/2022 6:46 AM EDT Hugo Dumas MD LAB BLOOD ORDERABLES Final Re sult [facility] [address] [place] [address] * POCT Urine (01/24/2022 6:20 AM EDT) [...] Given 01/24/2022 9:03 AM EDT 1,000 mg fentaNYL (Sublimaze) injection 50 mcg 50 mcg, Intravenous, As needed, 2 doses, Starting on Sat01/24/22 at 0821, Until Sat01/24/22 at 1156, Routine, Recovery (Phase I only), severe pain, pain score of 5 to 8 out of 10. For 2 doses only! HYDROcodone-acetaminophen ([place]) 5-325 MG per tablet 1 tablet 1 [...] of 10. For 2 doses only! HYDROcodone-acetaminophen ([place]) 5-325 MG per tablet 1 tablet 1 [...] Preprocedure documented in this encounter Care Teams Sound Effects Person Relationship Specialty Start Date End Date Pcp, No PCP - General 04/06/21 05/22/24 documented as of this encounter
--- OUTSIDE RECORDS SUMMARY | 2024-09-19 09:08 | XMS_ITS | Data Portability ---
Author Organization [place] [facility] Address [address] [place] [address] Assessment No assessment recorded. Plan of Treatment Reminders Order Date Submit Date Provider Last Modified By Organization Details Last Modified Time Details Appointments None recorded. Lab urinalysis , dipstick 2022 023 [email or web address] Not available 15:47:24 Referral None recorded. Procedures None recorded. Surgeries None recorded. Imaging None recorded. Medication Orders None recorded. Patient TargetsNo targets recorded. Patient InstructionsNo instructions recorded. Reason for Referral None Reported. Results Created Date Observation Date Name Description Value Unit Range Abnormal Flag Note LastModifiedBy Organization Detail LastModifiedTime 02/20/2002/19/2023 urina lysis , dipst ick Leukocytes (reference range) negati ve Not Available [address], [address], 02/19/2023 15:28:13 02/20/20 23 02/19/2023 urina lysis , dipst ick Nitrite (reference range:) negati ve Not Available [address], [address], 02/19/2023 15:28:13 02/20/20 23 02/19/2023 urina lysis , dipst ick Urobilinogen (reference range) 0.2 Not Available [address], [address], 02/19/2023 15:28:13 02/20/20 23 02/19/2023 urina lysis , dipst ick Protein (reference range) negati ve Not Available [address], [address], 02/19/2023 15:28:13 02/20/20 23 02/19/2023 urina lysis , dipst ick pH (reference range 5-8.5) 7.0 Not Available [address], [address], 02/19/2023 15:28:13 02/20/20 23 02/19/2023 urina lysis , dipst ick Blood (reference range:) negati ve Not Available [address], [address], 02/19/2023 15:28:13 02/20/20 23 02/19/2023 urina lysis , dipst ick Specific [place] (reference range) 1.020 Not Available [address], [address], 02/19/2023 15:28:13 02/20/20 23 02/19/2023 urina lysis , dipst ick Ketone (reference range) negati ve Not Available [address], [address], 02/19/2023 15:28:13 02/20/20 23 02/19/2023 urina lysis , dipst ick Bilirubin (reference range) negati ve Not Available [address], [address], 02/19/2023 15:28:13 02/20/20 23 02/19/2023 urina lysis , dipst ick Glucose (reference range) negati ve Not Available [address], [place], [address], 02/19/2023 15:28:13 02/20/2002/19/2023 urina lysis , dipst ick Color (reference range: yellow-brown ) Pale Yellow Not Available [address], [address], 02/19/2023 15:28:13 Result Notes None recorded. Medical Equipment None Reported. Allergies No known drug allergies Medications Name Sig Start Date Stop Date Status Note LastModified by Organization Details LastModified Time amoxicillin 500 mg capsule TAKE 1 CAPSULE BY MOUTH FOUR TIMES DAILY UNTIL GONE 02/19 completed Not Available Not Available Not Available hydrocodone 7.5 mg-acetamino phen 325 mg tablet TAKE 1 TABLET BY MOUTH EVERY 6 HOURS NEEDED 02/19 completed Not Available Not Available Not Available Vitals Date Recorded Body height Body mass index (BMI) Body weight Body temperature Oxygen saturation Oxygen saturation in Arterial blood by Pulse oximetry Heart rate Systolic blood pressure Diastolic blood pressure Provider Name and Address Organization Details Last Updated DateTime 3 162.56 cm 21.3 kg/m2 67107.4 5 g 98.7 [degF] 97 % 97 % 74 /min 119 mm[Hg] 78 mm[Hg] Javan Dunaway [facility] - [place] [facility] [place] 15:26:05 Social History None recorded. Functional Status None recorded. Mental Status None recorded. Family History Nothing Reported. 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 No medical history recorded. Gynecological HistoryNo gynecological history recorded. Obstetrics History GPAL:G 0 P 0 0 0 0 Immunizations Vaccine Type Date Status Provider Name and Address Organization Details Recorded Time Tdap 08/09/2017 completed RAMO Burch [facility] - [place] [facility] [place] 02/19/2023 15:26:19 Influenza, split virus, trivalent, PF 08/02/2017 completed RAMO Burch [facility] - [place] [facility] [place] 02/19/2023 15:26:19 Influenza, split virus, trivalent, PF 08/16/2016 completed RAMO Burch [facility] - [place] [facility] [place] 02/19/2023 15:26:19 Past Encounters Encounter ID Performer Location Encounter Start Date Encounter Closed Date Diagnosis/Indication Diagnosis SNOMED-CT Code Diagnosis ICD10 Code [id number] Cedrick Olvera MD [id number] [address] [address] 02/19/2023 15:03:42 02/19/2023 15:50:08 Urinary tract infectious disease 45105415 N39.0 Increased frequency of urination 595119661 R35.0 Health Concerns Section Related Observation LastModified by Organization Detai ls LastModified Time None Recorded Concern Status LastModified by Organization Details LastModified Time None Recorded Advance Directives Directive None Recorded Payers Encounter Date Sequence Insurance Name Policy Number Policy Demarco Covered Member ID Demarco Member ID Guarantor Name 02/19/2023 1 BCBS[employer] [id number] 1 [place] [id number] [place] Notes Date Note Type Note Provider Name and Address Organization Details Recorded Time 02/19/2023 text/html 28-year-old fema le here to become established patient. Patient reports some frequent urination. She did not have any true dysuria. No flank pain or suprapubic pain. She denies any discharge or vaginal irritation.Patient does drink a lot of caffeine.Patient also states she has trouble gaining weight. She is had thyroid checked in the past has been normal. She does eat 3 meals a day.Family history is significant for thyroid disease diabetes and skin cancer. Cedrick Olvera MD [address] [place] [address], [place], [address], [place] - [facility] [place] [facility] [place] 02/19/2023 15:46:01 OBGyn Episode No OBEpisode recorded.
--- OUTSIDE RECORDS SUMMARY | 2024-09-19 09:08 | XMS_ITS | Encounter Summary ---
Author Organization Healthcare Address [address] [place] [address] Care Team Providers Care Radio News Anchor Name Role Phone Pcp, No Primary Care Provider Unavailabl e Encounter Details Date Type Department Care Team (Latest Contact Info) Description 02/28/2023 Travel Social History Tobacco Use Types Packs/Day [...] 2:00 PM EST Office [facility] [address], [address] [place] [address] Mitra Callaway APRN, COMPA [address] [place] [address] documented as of this encounter Visit Diagnoses Not on filedocumented in this encounter Care Teams Radio News Anchor Relationship Specialty Start Date End Date Pcp, No PCP - General 04/06/21 05/22/24 documented as of this encounter
--- OUTSIDE RECORDS SUMMARY | 2024-09-19 09:08 | XMS_ITS | Encounter Summary ---
Author Organization Healthcare Address [address] [place] [address] Care Team Providers Care Coal Unloader Name Role Phone Pcp, No Primary Care Provider Unavailabl e Encounter Details Date Type Department Care Team (Latest Contact Info) Description 01/23/2022 Travel Social History Tobacco Use Types Packs/Day [...] have Coronavirus / COVID-19? No / Unsure 01/23/2022 12:40 PM EDT documented as of this encounter Plan of Treatment Upcoming Encounters Date Type Department Care Team (Late st Contact Info) Description 09/21/2024 2:00 PM EST Office [facility] [address], [address] [place] [address] Mitra Callaway APRN, CNM [address] [place] [address] documented as of this encounter Visit Diagnoses Not on filedocumented in this encounter Care Teams Coal Unloader Relationship Specialty Start Date End Date Pcp, No PCP - General 04/06/21 05/22/24 documented as of this encounter
--- OUTSIDE RECORDS SUMMARY | 2024-09-19 09:08 | XMS_ITS | Encounter Summary ---
Author Organization Healthcare Address [address] [place] [address] Care Team Providers Care Switchman Name Role Phone Pcp, No Primary Care Provider Unavailabl e Encounter Details Date Type Department Care Team (Latest Contact Info) Description 01/24/2022 Travel Social History Tobacco Use Types Packs/Day [...] AM EDT documented as of this encounter Plan of Treatment Upcoming Encounters Date Type Department Care Team (Late st Contact Info) Description 09/21/2024 2:00 PM EST Office [facility] [address], [address] [place] [address] Mitra Callaway APRN, CNM [address] [place] [address] documented as of this encounter Visit Diagnoses Not on filedocumented in this encounter Care Teams Switchman Relationship Specialty Start Date End Date Pcp, No PCP - General 04/06/21 05/22/24 documented as of this encounter
--- OUTSIDE RECORDS SUMMARY | 2024-09-19 09:08 | XMS_ITS | Encounter Summary ---
Author Organization [facility] Address [address] [place] [address] Care Team Providers Care Transportation Project Manager Name Role Phone Pcp, No Primary Care Provider Unavailabl e Encounter Details Date Type Department Care Team (Late st Contact Info) Description 03/06/2023 10:00 AM EDT Office Visit [facility] [address], [address] [place] [address] Keerthi Avila, PICK UP WORKER, CNM [address] [place] [address] Vaginal discharge (Primary Dx) Social History Tobacco Use Types Packs/Day Years [...] on file documented as of this encounter Last Filed Vital Signs Vital Sign Reading Time Taken Comments Blood Pressure 117/74 03/06/2023 9:51 AM EDT Pulse 87 03/06/2023 9:51 AM EDT Temperature - - Respiratory Rate - - Oxygen Saturation - - Inhaled Oxygen Concentration - - Weight 56.4 kg (124 lb 5.4 oz) 03/06/2023 9:51 A M EDT Height 162.6 cm (5' 4 ) 03/06/2023 9:51 AM EDT Body Mass Index 21.34 03/06/2023 9:51 AM EDT documented in this encounter Miscellaneous Notes * Progress Notes - Keerthi Avila APRN, CNM - 03/06/2023 10:00 AM EDT Gynecology Progress Note Subjective Minda presents today with report of increased discharge- was a clear/yellow in color but sometimes yellow/green. Noticing a fishy foul odor with discharge, worsened after intercourse. She also endorses increased low abdominal and pelvic pressure when voiding and increased urgency. She recently went to PCP and was tested for a UTI but was told all tests were normal. Prefers self swab today. 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 Has known history of chlamydia x1 in past so desires STI panel on MDL swab today. Does not take a daily probiotic. Review of Systems Objective Visit Vitals BP 117/74 (BP Location: Left arm, Patient Position: Sitting, BP Cuff Size: Adult) Pulse 87 Physical Exam Constitutional: Appearance: Normal appearance. Genitourinary: Genitourinary Comments: Deferred, pt prefers self swab Neurological: Mental Status: She is alert and oriented to person, place, and time. Psychiatric: Mood and Affect: Mood normal. Behavior: Behavior normal. Vitals reviewed. Assessment/Plan Assess/Plan SmartLinks: Diagnoses and all orders for this visit: Vaginal discharge -MDL self swab -discussed possible BV based on sxs, plan to await results to treat -prefers po treatment -rec probiotic daily, discussed boric acid suppositories -avoid douching, rec cotton underwear, avoid leggings/constricting clothing, karthikeyan for sleep, discussed factors that alter ph including menses and semen RTC: prn documented in this encounter Plan of Treatment Upcoming Encounters Date Type Department Care Team (Late st Contact Info) Description 09/21/2024 2:00 PM EST Office [facility] [address], [address] [place] [address] Mitra Callaway APRN, CNM [address] [place] [address] documented as of this encounter Visit Diagnoses Diagnosis Vaginal discharge- Primary Leukorrhea, not specified as infective documented in this encounter Care Teams Transportation Project Manager Relationship Specialty Start Date End Date Pcp, No PCP - General 04/06/21 05/22/24 documented as of this encounter
--- OUTSIDE RECORDS SUMMARY | 2024-09-19 09:08 | XMS_ITS | Encounter Summary ---
Author Organization Healthcare Address [address] [place] [address] Care Team Providers Care Aluminum Molder Name Role Phone Pcp, No Primary Care Provider Unavailabl e Reason for Visit * Reason Comments Pre-op Visit Encounter Details Date Type Department Care Team ([facility] st Contact Info) Description 01/18/2022 3:45 PM EDT Consult Medical Office Building Obstetrics and Gynecology [address] [facility], [address] [place] [address] Hugo Dumas MD [address] [facility] [address] [place] [address] Preop examination (Primary Dx) Social History Tobacco Use Types [...] have Coronavirus / COVID-19? No / Unsure 01/18/2022 2:38 PM EDT documented as of this encounter Last Filed Vital Signs Vital Sign Reading Time Taken Comments Blood Pressure 126/81 01/18/2022 3:34 PM EDT Pulse - - Temperature - - Respiratory Rate - - Oxygen Saturation - - Inhaled Oxygen Concentration - - Weight 52 kg (114 lb 10.2 oz) 01/18/2022 3:34 PM EDT Height - - Body Mass Index 19.68 12/14/2021 8:50 AM EST documented in this encounter Miscellaneous Notes * H&P - Hugo Dumas MD - 01/18/2022 3:45 [...] of Hepatitis B, Hepatitis C,or HIV disease ([facility]). Past Surgical History She has no [...] All questions answered. KMA previously signed. * Progress Notes - Hugo Dumas MD - 01/18/2022 3:45 PM EDT Gynecology Progress Note Subjective Preop Exam HPI 26 yo scheduled for Laparoscopic Bilateral Salpingectomy on 01/24/2022. She is doing well today with no complaints. No changes in her medical history. Risks/benefits/alternatives to procedure discussed today and consent signed. All questions answered. Review of Systems Constitutional: Negative. Respiratory: Negative. Cardiovascular: Negative. Gastrointestinal: Negative. Endocrine: Negative. Genitourinary: Negative. Musculoskeletal: Negative. Neurological: Negative. Hematological: Negative. Psychiatric/Behavioral: Negative. Objective Visit Vitals BP 126/81 Wt 52 kg (114 lb 10.2 oz) Yes BMI 19.68 kg/m?? OB Status Recent Smoking Status Never Smoker BSA 1.53 m?? Physical Exam Constitutional: Appearance: Normal appearance. Cardiovascular: Rate and Rhythm: Normal rate and regular rhythm. Heart sounds: Normal heart sounds. Pulmonary: Effort: Pulmonary effort is normal. Breath sounds: Normal breath sounds. Psychiatric: Mood and Affect: Mood normal. Behavior: Behavior normal. Thought Content: Thought content normal. Assessment/Plan 26 yo scheduled for Laparoscopic Bilateral Salpingectomy on 01/24/2022 1. Preop - Risks/benefits/alternatives to procedure discussed today and consent signed. All questions answered. KMA previously signed. documented in this encounter Plan of Treatment Upcoming Encounters Date Type Department Care Team (Late st Contact Info) Description 09/21/2024 2:00 PM EST Office Visit [facility] [address], [address] [place] [address] Mitra Callaway APRN, CNM [address] [place] [address] documented as of this encounter Visit Diagnoses Diagnosis Preop examination- Primary Unspecified pre-operative examination documented in this encounter Care Teams Aluminum Molder Relationship Specialty Start Date End Date Pcp, No PCP - General 04/06/21 05/22/24 documented as of this encounter
--- OUTSIDE RECORDS SUMMARY | 2024-09-19 09:08 | XMS_ITS | Encounter Summary ---
Author Organization Healthcare Address [address] [place] [address] Care Team Providers Care Telegraph Plant Maintainer Name Role Phone Pcp, No Primary Care Provider Unavailabl e Encounter Details Date Type Department Care Team (Latest Contact Info) Description 12/14/2021 Travel Social History Tobacco Use Types Packs/Day [...] AM EST documented as of this encounter Plan of Treatment Upcoming Encounters Date Type Department Care Team (Late st Contact Info) Description 09/21/2024 2:00 PM EST Office [facility] [address], [address] [place] [address] Mitra Callaway APRN, CNSiddharth [address] [place] [address] documented as of this encounter Visit Diagnoses Not on filedocumented in this encounter Care Teams Telegraph Plant Maintainer Relationship Specialty Start Date End Date Pcp, No PCP - General 04/06/21 05/22/24 documented as of this encounter
--- OUTSIDE RECORDS SUMMARY | 2024-09-19 09:08 | XMS_ITS | Encounter Summary ---
Author Organization Healthcare Address [address] [place] [address] Care Team Providers Care Geothermal Operations Engineer Name Role Phone Pcp, No Primary Care Provider Unavailabl e Encounter Details Date Type Department Care Team (Late st Contact Info) Description 08/02/2023 Telephone [facility] [address], [address] [place] [address] Mitra Callaway APRN, CN [address] [place] [address] Social History Tobacco Use Types [...] on file documented as of this encounter Miscellaneous Notes * Telephone Encounter - Noah Antony Subramanian - 08/02/2023 1:20 PM EDT Reports significant pain in R breast, she is unable to wear a bra because it's so tender. States she stopped nursing about 3-4 months ago but still has milk. Feels hardness under nipple, she thinks it is possibly a clog. She does state that her breast is red and streaky. Denies flu like symptoms. Reports being hot then chilled this morning but attributes to wearing a sweater and the temperatureoutside becoming warmer. She is unable to check her temperature at this time. Scheduled Saturday for an apt at the clinic. Discussed how to break up a clog, uncluidng massage, vibration, cold compress, steamy shower, hand expression, anti-inflammatory medications, etc. What is you recommendation? documented in this encounter Plan of Treatment Upcoming Encounters Date Type Department Care Team (Late st Contact Info) Description 09/21/2024 2:00 PM EST Office Visit [facility] [address], [address] [place] [address] Mitra Callaway, SLITTER CREASER SLOTTER HELPER, CN [address] [place] [address] documented as of this encounter Visit Diagnoses Not on filedocumented in this encounter Care Teams Geothermal Operations Engineer Relationship Specialty Start Date End Date Pcp, No PCP - General 04/06/21 05/22/24 documented as of this encounter
--- OUTSIDE RECORDS SUMMARY | 2024-09-19 09:08 | XMS_ITS | Encounter Summary ---
Author Organization Healthcare Address [address] [place] [address] Care Team Providers Care Elevator Mechanic Apprentice Name Role Phone Pcp, No Primary Care Provider Unavailabl e Encounter Details Date Type Department Care Team (Late st Contact Info) Description 03/14/2023 Abstract [facility] [address], [address] [place] [address] Keerthi Avila APRN, CNM [address] [place] [address] Social History Tobacco Use Types [...] 2:00 PM EST Office Visit [facility] [address], [address] [place] [address] Mitra Callaway APRN, CNM [address] [place] [address] documented as of this encounter Visit Diagnoses Not on filedocumented in this encounter Care Teams Elevator Mechanic Apprentice Relationship Specialty Start Date End Date Pcp, No PCP - General 04/06/21 05/22/24 documented as of this encounter
--- OUTSIDE RECORDS SUMMARY | 2024-09-19 09:08 | XMS_ITS | Encounter Summary ---
Author Organization Healthcare Address [address] [place] [address] Care Team Providers Care Oracle Adf Developer Name Role Phone Pcp, No Primary Care Provider Unavailabl e Encounter Details Date Type Department Care Team (Latest Contact Info) Description 01/18/2022 Travel Social History Tobacco Use Types Packs/Day [...] 2:00 PM EST Office [facility] [address], [address] [place] [address] Mitra Callaway APRN, CNM [address] [place] [address] documented as of this encounter Visit Diagnoses Not on filedocumented in this encounter Care Teams Oracle Adf Developer Relationship Specialty Start Date End Date Pcp, No PCP - General 04/06/21 05/22/24 documented as of this encounter
--- OUTSIDE RECORDS SUMMARY | 2024-09-19 09:09 | XMS_ITS | Encounter Summary ---
Author Organization Healthcare Address [address] [place] [address] Care Team Providers Care Tractor Distributor Name Role Phone Pcp, No Primary Care Provider Unavailabl e Encounter Details Date Type Department Care Team (Latest Contact Info) Description 04/13/2021 Travel Social History Tobacco Use Types Packs/Day Years Used Date Smoking Tobacco: Never Comments Yes Sex and Gender Information Value Date Recorded Sex Assigned at Not on file Legal Sex Female 6:27 PM EDT Gender Identity Female 04/27/2021 10:22 AM EDT Sexual Orientation Not on file COVID-19 Exposure Response Date Recorded In the last month, have you been in contact with someone who was confirmed or suspected to have Coronavirus / COVID-19? No / Unsure 04/13/2021 2:49 PM EDT documented as of this encounter Plan of Treatment Upcoming Encounters Date Type Department Care Team (Late st Contact Info) Description 09/21/2024 2:00 PM EST Office [facility] [address], [address] [place] [address] Mitra Callaway APRN, CNSiddharth [address] [place] [address] documented as of this encounter Visit Diagnoses Not on filedocumented in this encounter Care Teams Tractor Distributor Relationship Specialty Start Date End Date Pcp, No PCP - General 04/06/21 05/22/24 documented as of this encounter
--- OUTSIDE RECORDS SUMMARY | 2024-09-19 09:09 | XMS_ITS | Encounter Summary ---
Author Organization Healthcare Address [address] [place] [address] Care Team Providers Care Skid Worker Name Role Phone Unavailable Primary Care Provider Unavailabl e Encounter Details Date Type Department Care Team (Late st Contact Info) Description 09/09/2017 [facility] Vitals Encounter [facility] OUTPATIENT CONVERSIONS [address] [place] [address] ProviderElvis MD [address] [place], [place] [id number] Social History Tobacco Use Types Packs/Day Years Used Date Smoking Tobacco: Never Assessed Comments Unknown Sex and Gender Information Value Date Recorded Sex Assigned at Not on file Legal Sex Female 6:27 PM EDT Gender Identity Female 04/27/2021 10:22 AM EDT Sexual Orientation Not on file documented as of this encounter Last Filed Vital Signs Vital Sign Reading Time Taken Comments Blood Pressure - - Pulse - - Temperature - - Respiratory Rate - - Oxygen Saturation - - Inhaled Oxygen Concentration - - Weight 60.3 kg (133 lb 0.1 oz) 09/09/2017 3:19 P M EST Height 162.6 cm (5' 4 ) 09/09/2017 3:19 PM EST Body Mass Index 22.83 09/09/2017 3:19 PM EST documented in this encounter Plan of Treatment Upcoming Encounters Date Type Department Care Team (Late st Contact Info) Description 09/21/2024 2:00 PM EST Office [facility] [address], [address] [place] [address] Mitra Callaway APRN, CNM [address] [place] [address] documented as of this encounter Visit Diagnoses Not on filedocumented in this encounter
--- OUTSIDE RECORDS SUMMARY | 2024-09-19 09:09 | XMS_ITS | Encounter Summary ---
Author Organization [facility] Address [address] [place] [address] Care Team Providers Care Can Patcher Name Role Phone Pcp, No Primary Care Provider Unavailabl e Encounter Details Date Type Department Care Team (Late st Contact Info) Description 06/26/2021 Orders Only [facility] [address], [address] [place] [address] Macarena Palumbo, DANNIELLE, COMPA [address] [place] [address] Social History Tobacco Use Types Packs/Day Years Used Date Smoking Tobacco: Never Alcohol Use Standard Drinks/Week Comments [...] have Coronavirus / COVID-19? No / Unsure 06/23/2021 10:28 AM EDT documented as of this encounter Plan of Treatment Upcoming Encounters Date Type Department Care Team (Late st Contact Info) Description 09/21/2024 2:00 PM EST Office Visit [facility] [address], [address] [place] [address] Mitra Callaway, DANNIELLE, CNM [address] [place] [address] documented as of this encounter Visit Diagnoses Not on filedocumented in this encounter Care Teams Can Patcher Relationship Specialty Start Date End Date Pcp, No PCP - General 04/06/21 05/22/24 documented as of this encounter
--- OUTSIDE RECORDS SUMMARY | 2024-09-19 09:09 | XMS_ITS | Encounter Summary ---
Author Organization Healthcare Address [address] [place] [address] Care Team Providers Care Detasseling Crew Supervisor Name Role Phone Unavailable Primary Care Provider Unavailabl e Encounter Details Date Type Department Care Team (Late st Contact Info) Description 06/06/2017 Legacy AEHR Vitals Encounter [facility] OUTPATIENT CONVERSIONS [address] [place] [address] ProviderElvis MD [address] [place], [place] [id number] Social History Tobacco Use Types Packs/Day Years [...] - Inhaled Oxygen Concentration - - Weight 59.5 kg (131 lb 2.1 oz) 06/06/2017 3:07 P M EDT Height 162.6 cm (5' 4 ) 06/06/2017 3:07 PM EDT Body Mass Index 22.51 06/06/2017 3:07 PM EDT documented in this encounter Plan of Treatment Upcoming Encounters Date Type Department Care Team (Late st Contact Info) Description 09/21/2024 2:00 PM EST Office Visit [facility] [address], [address] [place] [address] Mitra Callaway, CONCRETE RUBBER, CNM [address] [place] [address] documented as of this encounter Visit Diagnoses Not on filedocumented in this encounter
--- OUTSIDE RECORDS SUMMARY | 2024-09-19 09:09 | XMS_ITS | Encounter Summary ---
Author Organization Healthcare Address [address] [place] [address] Care Team Providers Care Senior Accountant Cpa Name Role Phone Unavailable Primary Care Provider Unavailabl e Encounter Details Date Type Department Care Team (Late st Contact Info) Description 07/02/2017 Legacy AEHR Vitals Encounter [facility] OUTPATIENT CONVERSIONS [address] [place] [address] ProviderElvis MD [address] [place], [place] [id number] Social History Tobacco Use Types Packs/Day Years [...] - Inhaled Oxygen Concentration - - Weight 64.1 kg (141 lb 6.1 oz) 07/02/2017 3:36 P M EDT Height 162.6 cm (5' 4 ) 07/02/2017 3:36 PM EDT Body Mass Index 24.27 07/02/2017 3:36 PM EDT documented in this encounter Plan of Treatment Upcoming Encounters Date Type Department Care Team (Late st Contact Info) Description 09/21/2024 2:00 PM EST Office Visit [facility] [address] [place] [address] Mitra Callaway, BUSINESS ADMINISTRATOR, CNM [address] [place] [address] documented as of this encounter Visit Diagnoses Not on filedocumented in this encounter
--- OUTSIDE RECORDS SUMMARY | 2024-09-19 09:09 | XMS_ITS | Encounter Summary ---
Author Organization Healthcare Address [address] [place] [address] Care Team Providers Care Oil Exploration Engineer Name Role Phone Pcp, No Primary Care Provider Unavailabl e Reason for Visit * Auth/Cert Specialty Diagnoses / Procedures Referred By Contac t Referred To Contact Diagnoses Encounter for supervision of normal Rita Whitfield MD [address] [address] Phone: tel: fax: [facility] [address] [place] [address] Phone: tel: fax: Referral ID Status Reason Start Date Expiration Date Visits Re quested Visits Authorized [id number] 1 1 Encounter Details Date Type Department Care Team (Latest Contact Info) Description 04/27/2021 9:07 AM EDT - 04/29/2021 12:45 PM EDT Hospital Encounter [facility] [address] [place] [id number] Rita Whitfield MD [address] [address] Laurie Little MD [address] [address] Encounter for supervision of low-risk first in second trimester (Primary Dx) Discharge Disposition: Home or Self Care Social [...] Sign Reading Time Taken Comments Blood Pressure 135/81 04/29/2021 8:00 AM EDT Pulse 66 04/29/2021 8:00 AM EDT Temperature 36.7 ??C (98 ??F) 04/29/2021 8:00 AM EDT Respiratory Rate 14 04/29/2021 8:00 AM EDT Oxygen Saturation 99% 04/29/2021 8:00 AM EDT Inhaled Oxygen Concentration - - Weight 72.6 kg (160 lb) 04/27/2021 10:24 AM EDT Height 162.6 cm (5' 4 ) 04/27/2021 10:24 AM EDT Body Mass Index 27.46 04/27/2021 10:24 AM EDT documented in this encounter Discharge Instructions * Attachments The following attachments cannot be sent through Care Everywhere. * After Delivery: When to Call the Healthcare Provider ([place]) (Burmese) * After a Vaginal ([place]) ([place]) * , Breast Care After (Burmese) * Breast, (Burmese) * Sitz Bath, Taking a (Burmese) * Depression, (Burmese) documented in this encounter Medications at Time of Discharge acetaminophen (Tylenol) 325 MG tablet Take 2 tablets (650 mg total) by mouth every 6 (six) hours for 4 days. 30 tablet 04/29/2021 05/03/2021 docusate sodium 100 MG capsule Take 200 mg by mouth 2 (two) times a day for 10 days. 30 each 2 04/29/2021 05/09/2021 ibuprofen 600 MG tabletIndications :Mild to Moderate Pain Take 1 tablet (600 mg total) by mouth every 6 (six) hours for 10 days. 40 tablet 04/29/2021 05/09/2021 MV-Min-Fe Fum-FA-DHA ( Multi +DHA) 27-0.8-200 MG capsule TAKE 1 CAPSULE Daily 09/07/2020 06/23/2021 documented as of this encounter Miscellaneous Notes * Note - Elsy Godoy RN - 04/29/2021 11:41 AM EDT This note was copied from a baby's chart. Mother states going well and feels confident with . Breastfeed baby on cue, ensuring a minimum of 8 feedings in 24 hours. Watch your baby for signs of a good feeding such as long jaw movements, audible swallows, and consistent sucking with only brief pauses. Monitor your babies diapers. For each day old your baby is for the few days that is how manywet diapers they should have (3 days old, 3 wet diapers) , after day 6 they should continue to havea minimum of 6+ wet diapers daily. Your baby should poop 2-3 times a day and the color of the poop will change from black the first couple days, to green and then yellow. Continue to log your baby's feedings and diapers and take feeding log to your first jig worker appointment. It is normal for baby to cluster feed. Please refer to the community resource handout after you discharge home for places to call or go for help Praised Mother for her efforts with and encouraged to call for help as needed.. * Progress Notes - Keerthi Avila APRN, CNM - 04/29/2021 10:59 AM EDT S: No acute events overnight. Patient doing well, without complaints. Pain well controlled with PO medications. Lochia less than menses. Patient reports success with breast feeding. Tolerating po, no nausea/vomiting. Denies fever/chills and chest pain/shortness of air. O: VITALS Visit Vitals BP 135/81 (Patient Position: Lying) Pulse 66 Temp 36.7 ??C (98 ??F) (Oral) Resp 14 Ht 1.626 m (5' 4 ) Wt 72.6 kg (160 lb) SpO2 99% Yes BMI 27.46 kg/m?? OB Status Recent Smoking Status Never Smoker BSA 1.81 m?? I&O No intake or output data in the 24 hours ending 04/29/21 1059 PHYSICAL EXAM Constitutional: No acute distress, well appearing and well nourished. Cardiovascular: Normal rate and rhythm, no murmurs. No peripheral edema. Pulmonary: No increased work of breathing or signs of respiratory distress. Lungs clear to auscultation bilaterally. Abdomen: Soft, appropriately tender to palpation. Fundus firm and below umbilicus. Active bowel sounds Neurologic: Moves all extremities equally. Psychiatric: Mood and affect were normal. LABS @LABBRIEF@ A/P: 26 y.o. Post day #2 s/p 04/27/21 # Routine Post Care - voiding spontaneously - tolerating regular diet - encourage ambulation - pain well controlled with PO pain meds # Post Blood Loss/Anemia - hematocrit 33-33 - lochia appropriate # Infectious Complications - recent chlamydia infection, treated 04/20; anticipate [facility] outpatient pp - GBS positive- treated with PCN # Hypertensive Disorders - nl range BPs # Post Considerations - Breast/Bottle Feeding: breast - Blood Type: O Positive - Rubella Status: immune - Tdap Status: nursing to assess - Contraception: interval BTL, considering mini pill in interim # [place] Status -Viable Male infant -Desires Circumcision: Completed # FEN/Prophylaxis - REG/HLIV - SCD???s Dispo: Anticipate discharge today * Discharge Summary - Keerthi Avila APRN, CNM - 04/29/2021 7:18 AM EDT Hospitalization Admit Date/Time: 04/27/2021 9:07 AM Admitting Attending: Rita Whitfield Discharge Date: 04/29/21 Discharge Attending Physician: Laurie Little Md PCP name and Address: No Pcp (Inactive) None Referring provider name and address: No referring provider defined for this encounter. Chief Concern, Brief History of Present Illness, and Hospital Course Patient underwent vaginal delivery and remained in the hospital for 2 days. During that time she remained afebrile and hemodynamically stable. On the day of discharge, she was eating, ambulating and voiding without difficulty. Doing well this morning without complaints. Lochia less then menses. Denies pain. Surgeries and Procedures Spontaneous Vaginal Delivery Medication List .. acetaminophen 325 MG tablet Commonly known as: Tylenol Take 2 tablets (650 mg total) by mouth every 6 (six) hours for 4 days. DSS 100 MG capsule Take 200 mg by mouth 2 (two) times a day for 10 days. ibuprofen 600 MG tablet Take 1 tablet (600 mg total) by mouth every 6 (six) hours for 10 days. Multi +DHA 27-0.8-200 MG capsule Where to Get Your Medications These medications were sent to [facility] - [place], [place] - [address] [place] [address] ?? acetaminophen 325 MG tablet ?? DSS 100 MG capsule ?? ibuprofen 600 MG tablet Discharge Diagnosis Encounter for supervision of normal Active Hospital Problems *Encounter for supervision of normal Encounter for supervision of low-risk first in second trimester Follow-Up / Post Discharge Instructions Follow up 1 week in [facility] Call restaurant hourly team member clinic to schedule tubal ligation Outpatient Follow-Up No future appointments. Test Results Pending At Discharge None Pertinent Physical Exam At Time of Discharge Physical Exam Constitutional: General: She is not in acute distress. Appearance: Normal appearance. HENT: Head: Normocephalic. Nose: No congestion. Cardiovascular: Rate and Rhythm: Normal rate and regular rhythm. Pulses: Normal pulses. Heart sounds: No murmur heard. Pulmonary: Effort: Pulmonary effort is normal. Breath sounds: Normal breath sounds. Abdominal: General: Bowel sounds are normal. Palpations: Abdomen is soft. Neurological: General: No focal deficit present. Mental Status: She is alert. Psychiatric: Mood and Affect: Mood normal. Discharge Disposition/Condition Home in stable condition Follow up at 1 week post visit [facility] * Hospital Course - Julia Kim MD - 04/29/2021 1:09 AM EDT Patient underwent vaginal delivery and remained in the hospital for 2 days. During that time she remained afebrile and hemodynamically stable. On the day of discharge, she was eating, ambulating and voiding without difficulty. * Note - Elsy Godoy RN - 04/28/2021 5:11 PM EDT This note was copied from a baby's chart. Mother had baby latched effectively with baby rhythmically sucking and taking occasional swallow. Encouraged mother to use breast compression when baby is to help a baby transfer more breastmilk with feeding. To do breast compression, compress the breast when baby is suckling and whenbaby stops, release the breast. Reviewed baby behavior and cluster feeding. Praised Mother for her efforts with and encouraged to call for help as needed. * Anesthesia Post-op Follow-up Note - Marilyn Vu MD - 04/28/2021 11:12 AM EDT Patient: Minda N Jeni Procedures: LIGATION, FALLOPIAN TUBE, BILATERAL (Bilateral) Patient location: Labor and delivery Patient is s/p via FLORINDA. Denies headache, nausea, vomiting, paresthesias in bilateral lower extremities, or back pain. Able to ambulate, tolerate PO, and urinate without armas. No complaints. * Progress Notes - Phuong Calixto APRN, CNM - 04/28/2021 10:36 AM EDT Day 1 S: Minda Ngo had no acute events overnight. Patient doing well, without complaints. Pain well controlled with PO medications. Lochia less than menses. Patient reports success with breast feeding. Tolerating po, no nausea/vomiting. Ambulating and voiding without difficulty. She Has not had a bowel movement. Denies fever/chills and chest pain/shortness of air. Minda does desire tubal ligation during her stay. She last ate this morning at 0915. She signed the KMA form on 03/30/21, and has private insurance. O: VITALS Visit Vitals BP 120/64 Pulse 72 Temp 36.6 ??C (97.9 ??F) (Oral) Resp 13 Ht 1.626 m (5' 4 ) Wt 72.6 kg (160 lb) SpO2 99% Yes BMI 27.46 kg/m?? OB Status Recent Smoking Status Never Smoker BSA 1.81 m?? I&O Intake/Output Summary (Last 24 hours) at 04/28/2021 1037 Last data filed at 04/27/2021 2100 Gross per 24 hour Intake 96 ml Output 325 ml Net -229 ml PHYSICAL EXAM Constitutional: No acute distress, well appearing and well nourished. Cardiovascular: Normal rate and rhythm, no murmurs. No peripheral edema. Pulmonary: No increased work of breathing or signs of respiratory distress. Abdomen: Soft, appropriately tender to palpation. Fundus firm and below umbilicus. Active bowel sounds - Incision: Clean/Dry/Intact Perineum: healing, Psychiatric: Mood and affect were normal. A/P: 26 y.o. Post day #1 s/p # Routine Post care - voiding spontaneously - tolerating regular diet - encourage ambulation - pain well controlled with PO pain meds -Anticipate discharge tomorrow after rounds -Desires tubal ligation, will discuss plan with OB team given patient had breakfast this AM. # Post Blood Loss/Anemia - am H/H 33/11 # Infectious Complications -recent Chlamydia infection-treated 04/20/21 -Denies IC since treatment # Hypertensive Disorders -normal range BP -OPB this AM normal results # Chronic Medical Conditions -hx of anxiety/depression-normal mood today * Progress Notes - Samanta Zamora Elvira - 04/28/2021 10:22 AM EDT Case Management PEDS Progress Note Minda Ngo 26 y.o. female CSN: [id number] Anticipated Discharge Date: unknown Has Discharge Plans Changed? No Family Present? Yes mom and dad at bedside Is Patient Medically Ready for Discharge?No not medically ready Resource Information Provided for Patient/ Family: Not Applicable Additional Comments SW received consult due to mom testing positive for THC on 09/16/20. Other testing since August have been negative. SW met with mom, FOB, and baby at bedside and completed initial assessment. OB Initial Assessment Best Contact #: [phone] Physical Address: [address] [place] [address] Family has: car seat, baby supplies, WIC, family support Marital Status: Single Living Arrangements: mom, fob, baby, and 3yo sister Financial Information: parents are employed Employment Status: yes-Romaine Aldana Planned?: yes Adoption Plan: no Feeding Method: both Flanger: [facility] Do you have any other children? yes If your children live elsewhere who do they live with? NA Father's Name: Dallas Hi Father's Age: 28 Plan for involvement? yes Ethnicity: Employment: yes Occupation: [employer] Evaluation of Support: strong on both sides of family Education: Mid Wives History of Abuse/Neglect: denied DV History: denied Referrals Needed: NA Exposure to SHS/other smokers in the home: No Any form of tobacco used in last 12 months: No Alcohol Use: denied Street drug/inhalant/medication use: mom has only used marijuana Other Substance Use: denied DCBS History: denied Mental Health History: denied Legal History: denied Educational History: Mom graduated from [employer] in [place] and attended 3 semesters at [employer] for Accounting. AISHWARYA Recommendations: AISHWARYA explained to mom that if the baby's UDS or her UDS comes back positive for THC or any other illegal drug that SW has to report this to DCBS/Child Abuse Hotline. However, if the UDS's come back clean then SW will do nothing. SW will continue following for results of UDS on both baby and mom. SW requested that medical team put in orders for UDS on both mom and baby. SW updated medical team and nursing staff. Samanta Zamora * Care Plan - Yesica Michelle RN - 04/28/2021 8:41 AM EDT Problem: Adult Inpatient Plan of Care Goal: Plan of Care Review Outcome: Ongoing, Progressing Flowsheets (Taken 04/28/2021 08) Progress: improving Plan of Care Reviewed With: patient Goal: Patient-Specific Goal (Individualized) Outcome: Ongoing, Progressing Goal: Absence of Hospital-Acquired Illness or Injury Outcome: Ongoing, Progressing Goal: Optimal Comfort and Wellbeing Outcome: Ongoing, Progressing * Note - Coco Cortes RN - 04/28/2021 12:00 AM EDT This note was copied from a baby's chart. Consultation Assessment Note [facility] Patient Name: Zhanna Ngo Date: 04/28/2021 Time: 0000 Admission Date: 04/27/2021 Primary Care Physician: No primary care provider on file. Age: 1 days Sex: male Gestational Age of Infant: Unknown Weight of Infant: 3420 g Percent Weight Change Since : 0% Consultation: Reason for Consult: Initial assessment Maternal Information: Has mother breastfed before?: Yes How long did the mother previously breastfeed?: Breastfed first child, now 5 years old, for 18 months Previous Maternal Challenges: None LATCH: Latch: Grasps breast, tongue down, lips flanged, rhythmic sucking Audible Swallowing: A few with stimulation Type of Nipple: Everted (After stimulation) Comfort (Breast/Nipple): Soft/non-tender Hold (Positioning): No assist from staff, mother able to position/hold LATCH Score: 9 OB Tools: Breast Pump: Patient Follow-up: Follow-up Needed : Follow-up Follow-Up Type: Inpatient Additional Documentation: Mom given feeding log. Latches infant without difficulty, worked on deepening latch. Infant with rhythmic suckle and pauses noted. Mom denies pain with feeding. Reviewed feeding cues, baby behavior in first 24 hours, signs of good feeding and lactogenesis principles. Mom encouraged to ask for LC assistance. Maternal History: OB History: No obstetric history on file. Information Delivery type: Vaginal, Spontaneous Breech type (if applicable): Observed anomalies/comments: Complications: Labor complications: None Additional complications: at least 8 times in 24 hours. Coco Cortes RN Date: 04/28/2021 Time: 12:55 AM * L&D Delivery Note - Viet Jefferson APRN, CNM - 04/27/2021 9:15 PM EDT OB Vaginal Delivery Note 04/27/2021 Minda Ngo 26 y.o. Review the Delivery Report for details. Gestational Age: 40w2d /Para: Labor Complications: None Estimated Blood Loss: Delivery Blood Loss 04/27/21 0851 - 04/27/215 None Quantitative Blood Loss: 50 Delivery Type: Vaginal, Spontaneous ROM to Delivery Time: 4h 20m Sex: Male Weight: 1 Minute 5 Minute 10 Minute Totals: 8 9 Zhanna Ngo [[id number]] Delivery Providers Delivering clinician: Viet Jefferson CNM Provider Role Carie Sandoval, tube backer Assist Watson Severino RN Delivery Nurse Delivery Details: Minda Ngo, a 26 y.o. female delivered a viable Male infant with Apgars of 8 and 9. Delivery was via Vaginal, Spontaneous with Epidural anesthesia. Infant delivered in Vertex Occiput Anterior position. Anterior and posterior shoulders delivered without difficulty. After delayed cordclamping, the cord was clamped twice, cut and 3 vessels were noted. Intact placenta delivered at 04/27/2021 9:00 PM . Placental disposition was discarded . Fundal massage performed and fundus found to be firm. Perineum, vagina, cervix were inspected, and the following lacerations were noted: Zhanna Ngo [[id number]] Lacerations Episiotomy: None Perineal laceration: None Other lacerations?: No Repair suture: None The lacerations were repaired in the usual fashion using None . Excellent hemostasis was noted. Thesponge and needle counts were correct. Viet Jefferson CNM * H&P - Viet Jefferson APRN, CNM - 04/27/2021 9:37 AM EDT OB H&P Chief complaint I am here for my induction HPI Minda is a 26 y.o. @ 40w2d (04/25/21) here for elective induction of labor. Her is complicated by chlamydia treated 1 week prior ( no SIC since ), POS UDS for THC in early though repeat screens were all NEG. Reports good movement and denies vaginal bleeding, loss of fluid, fever, DHILLON, edema or SOA. Reports mild irregular contractions. Obstetrical History -G1: 2017, @ 41wks; epid; 7-0; female Antonietta ; [facility] ([facility]) -G2: current, planned GynHx: menarche-15, reg menses, last pap Sep 2017-ASCUS, - chlamydia treated March 2021 OB ULTRASOUNDS -US @ 6w0d (08/30/20): FHR+, LIZZY nl, size does not equal dates, new RAFAEL 04/25/21. Small intramural fibroid suspected. -US @ 20w0d (12/06/20): FHR 164, BREECH, post plac, XTT=712w, 3VC--adenike nal insertion, LIZZY nml, CL adequate, S=D, RAFAEL=04/25/21, Anatomy complete. FU @ 32wks -US @ 32wks (03/02/21) vtx, Posterior fundal placenta, PCI @2.47cm , FHR 138, BPP8/8 LIZZY 15 WNL, EFW 73%/AC 84%; UAD 56% nml; F/U 4 weeks for growth -US @ 36w3d ( 1): prelim-vtx; fundal plac; LIZZY 17cm; BPP 8/8; UAD nl; growth 71%, AC 80%; LABS Blood Type: O Positive Rubella: immune Hepatitis B: negative HIV: negative Syphilis: negative Glucola: 134 GTT: 70/118/100/84 (nl) Group B Strep: POS ( by urine ) TDAP: s/p 02/01/21 Past 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 She has a past medical history of Depression, Encounter for routine follow-up, Irregularmenstruation, unspecified, Other specified anxiety disorders, Personal history of other diseases ofthe nervous system and sense organs, Personal history of other infectious and parasitic diseases, Personal history of other specified conditions, Personal history of other specified conditions, and Personal history of urinary (tract) infections. She also has no past medical history of Hepatitis B, Hepatitis C, or HIV disease (CMS/HCC). Past Surgical History She has no past surgical history on file. Social History She reports that she has never smoked. She does not have any smokeless tobacco history on file. Shereports that she does not drink alcohol and does not use drugs. FOB: boyfriend [place] BABY: emelia [employer] Family History Her family history includes Autism in an other family member; Melanoma in her paternal grandfather;Thyroid cancer in her father's sister; Thyroid disease in her paternal grandmother and paternal great-grandmother. Current Medications Current Outpatient Medications Medication Instructions ??? azithromycin (Zithromax) 250 MG tablet Take 2 tablets (500 mg total) by mouth 1 (one) time eachday for 1 day, THEN 1 tablet (250 mg total) 1 (one) time each day for 4 days. ??? MV-Min-Fe Fum-FA-DHA ( Multi +DHA) 27-0.8-200 MG capsule TAKE 1 CAPSULE Daily Allergies No Known Allergies Review of Systems Constitutional: Negative. HENT: Negative. Respiratory: Negative. Gastrointestinal: Negative. Genitourinary: Negative. Neurological: Negative. Psychiatric/Behavioral: Negative. Objective Visit Vitals BP 119/70 Pulse 60 Temp 36.6 ??C (97.8 ??F) (Oral) Resp 19 Body mass index is 27.46 kg/m??. No intake or output data in the 24 hours ending 04/27/21 1248 CE: 3/60/-2 in clinic yesterday US: 130s, + Accels, - decels, MOD, CAT I TOCO: quiet Physical Exam Constitutional: Appearance: Normal appearance. Genitourinary: Vulva normal. HENT: Head: Normocephalic. Eyes: Pupils: Pupils are equal, round, and reactive to light. Cardiovascular: Rate and Rhythm: Normal rate and regular rhythm. Abdominal: Palpations: Abdomen is soft. Musculoskeletal: General: Normal range of motion. Neurological: Mental Status: She is oriented to person, place, and time. Skin: General: Skin is warm and dry. Psychiatric: Mood and Affect: Mood normal. Vitals reviewed. Labs: Labs in last 18 hours Assessment/Plan 26 y.o. presenting for IOL @ 40w2d # IOL - presentation: VTX by BSUS - Consent obtained - discussed plan of care and # Status - Non-stress test: reassuring # Group B Strep Status - POS: PEN G ordered # + UDS - SS consult ordered PP # Breast Feeding # Contraception plan - Desires bilateral tubal ligation: [place] Medicaid sterilization consent form signed 03/30/21. Document located and placed in chart. MDs and charge aware # FEN/Prophylaxis - CLD/LR @ 125 cc/hr - SCDs Dispo: Admit to Labor and Delivery. documented in this encounter Plan of Treatment Upcoming Encounters Date Type Department Care Team (Late st Contact Info) Description 09/21/2024 2:00 PM EST [facility] [address] [place] [address] Mitra Callaway APRN, CNM [address] [place] [address] documented as of this encounter Procedures Procedure Name Priority Date/Time Associated Diagnosis Comments EXTRA TUBE LIGHT GREEN TOP Routine 04/28/2021 4:06 AM EDT EXTRA TUBES Routine 04/28/2021 4:06 AM EDT OB PANEL PRE ECLAMPSIA, PLASMA Add-On 04/28/2021 4:06 AM EDT HEMOGLOBIN AND HEMATOCRIT, BLOOD Routine 04/28/2021 3:55 AM EDT COMPREHENSIVE URINE DRUG SCREENING,QUALITATIVE ASSAY, >= 27 DRUG CLASSES STAT 04/27/2021 4:02 PM EDT EXTRA TUBE LIGHT GREEN TOP Routine 04/27/2021 10:37 AM EDT EXTRA TUBES Routine 04/27/2021 10:37 AM EDT CBC WITH AUTO DIFFERENTIAL Routine 04/27/2021 10:30 AM EDT TYPE AND SCREEN Routine 04/27/2021 10:30 AM EDT documented in this encounter Results * (ABNORMAL) OB Panel Pre-Eclampsia (04/28/2021 4:06 AM EDT) Uric Acid, Plasma 3.8 3.1 - 7.1 mg/dL 04/28/2021 6:34 AM EDT [facility] Creatinine, Plasma 0.49(L) 0.60 - 1.10 mg/dL 04/28/2021 6:34 AM EDT [facility] eGFR >60 >60 mL/min/1.7 3m*2 04/28/2021 6:34 AM EDT [facility] Comment:eGFR = estimated GFR ; eGFR units = mL/min/1.73 sq meters Chronic Kidney Disease is considered if eGFR <60 mL/min/1.73 sq meters Kidney failure is considered if eGFR is <15 mL/min/1.73 sq meters. eGFR assumes steady state plasma creatinine concentration; not applicable if renal function is rapidly changing or patient is on dialysis. eGFR, if AFR/AM >60 >60 mL/min/1.7 3m*2 04/28/2021 6:34 AM EDT [facility] Comment:eGFR = estimated GFR ; eGFR units = mL/min/1.73 sq meters Chronic Kidney Disease is considered if eGFR <60 mL/min/1.73 sq meters Kidney failure is considered if eGFR is <15 mL/min/1.73 sq meters. eGFR assumes steady state plasma creatinine concentration; not applicable if renal function is rapidly changing or patient is on dialysis. ALT, Plasma 12 8 - 33 U/L 04/28/2021 6:34 AM EDT [facility] AST, Plasma 23 11 - 32 U/L 04/28/2021 6:34 AM EDT [facility] LDH, Plasma 290(H) 116 - 250 U/L 04/28/2021 6:34 AM EDT [facility] Comment:Hemolyzed, result ma y be falsely increased. Blood Venous blood specimen / Unknown 04/28/2021 4:06 AM EDT 04/28/2021 4:05 AM EDT us Laurie Little MD LAB BLOOD ORDERABLES Final Res ult Performing Organization Address City/[facility]/ZIP Co de Phone Number [facility] [address] [place] [address] * Light Green Top (04/28/2021 4:06 AM EDT) Extra Hold for add-ons. 04/28/2021 1:01 PM EDT [facility] Comment:Auto resulted. Blood Venous blood specimen / Unknown 04/28/2021 4:06 AM EDT 04/28/2021 4:05 AM EDT us Laurie Little MD LAB BLOOD ORDERABLES Final Res ult [facility] [address] [place] [address] * (ABNORMAL) Hemoglobin and hematocrit, blood, AM Lab (04/28/2021 3:55 AM EDT) HGB 10.8(L) 11.2 - 15.7 g/dL LAB HEMATOLOGY METHOD 04/28/2021 4:18 AM EDT [facility] HCT 33.2(L) 34.0 - 45.0 % LAB HEMATOLOGY METHOD 04/28/2021 4:18 AM EDT [facility] Blood Venous blood specimen / Unknown Venipuncture / Unknown 04/28/2021 3:55 AM EDT 04/28/2021 4:11 AM EDT Viet Jefferson APRN, CNM LAB BLOOD ORDERABLES Fin al Result [facility] [address] [place], [place] [id number] * Urine Drug Screen Qual (04/27/2021 4:02 PM EDT) [facility] Test Result 04/28/20 8:04 AM EDT [facility] Comment:Negative for drugs t ested at the assay detection limits. Comprehensive Urine Drug Screen Result Negative Negative 04/28/2021 8:04 AM EDT [facility] Comment:Negative for drugs t ested at the assay detection limits. Urine Urine specimen obtained by clean catch procedure / Unknown Non-blood Collection / Unknown 04/27/2021 4:02 PM EDT 04/27/2021 4:09 PM EDT [facility] - 04/28/2021 8:04 AM EDT Drugs in urine are analyzed by gas chromatography-mass spectrometry. This test was developed and its performance characteristics determined by [facility].It has not been cleared or approved by the FDA.The laboratory is regulated under CLIA as qualified to perform high-complexity testing. This test is used for clinical purposes. Testing is performed at the [facility]. Drugs detected MAY include the following, but are not limited to this list. Drugs will be reported if they meet the laboratory quality criteria for identification.: Acetaminophen, alprazolam, amitriptyline, amphetamine, atenolol, bupropion, butalbital, carbamazepine, chlorpheniramine, citalopram, clopidogrel, cocaine, cyclobenzaprine, desvenlafaxine, dextromethorphan, diazepam, diphenhydramine, diltiazem, doxepine, doxylamine, fentanyl, fluconazole, fluoxetine, gabapentin, guaifenesin, haloperidol, heroin, hydrocodone, hydroxyzine, ibuprofen, imipramine, ketamine, labetolol, lamotrigine, levetiracetam, lidocaine, metaxalone, methadone, methamphetamine, methocarbamol, metoclopramide, metoprolol, metronidazole, midazolam, mirazapine, naproxen, nortriptyline, ordanstron, oxcarbazepine, oxycodone, paroxetine, phentermine, phenytoin, promethazine, propofol, propranolol, quetiapine, quinine, rantidine, sertraline, spironolactone, tizanidine, topiramate, tramadol, trazodone, trimethoprim, venlafaxine, verapamil. Viet Jefferson APRN, CNM LAB URINE ORDERABLES Fin al Result Performing Organization Address City/[facility]/ZIP Co de Phone Number [facility] [address] [place] [address] * Light Green Top (04/27/2021 10:37 AM EDT) Pathologist [facility] Extra Hold for add-ons. 04/27/2021 7:01 PM EDT [facility] Comment:Auto resulted. Blood Venous blood specimen / Unknown 04/27/2021 10:37 AM EDT 04/27/2021 10:37 AM EDT Rita Whitfield MD LAB BLOOD ORDERABLES Fin al Result Performing Organization Address City/[facility]/ZIP Co de Phone Number [facility] [address] [place] [address] * (ABNORMAL) CBC and differential (04/27/2021 10:30 AM EDT) Pathologist [facility] WBC Count 11.38(H) 3.70 - 10.30 10*3/uL LAB HEMATOLOGY METHOD 04/27/2021 10:44 AM EDT [facility] RBC Count 3.96 3.90 - 5.20 10*6/uL LAB HEMATOLOGY METHOD 04/27/2021 10:44 AM EDT [facility] HGB 10.7(L) 11.2 - 15.7 g/dL LAB HEMATOLOGY METHOD 04/27/2021 10:44 AM EDT [facility] HCT 33.4(L) 34.0 - 45.0 % LAB HEMATOLOGY METHOD 04/27/2021 10:44 AM EDT [facility] Platelet Count 259 155 - 369 10*3/uL LAB HEMATOLOGY METHOD 04/27/2021 10:44 AM EDT [facility] MCV 84 79 - 98 fL LAB HEMATOLOGY METHOD 04/27/2021 10:44 AM EDT [facility] MCH 27.0 26.0 - 32.0 pg LAB HEMATOLOGY METHOD 04/27/2021 10:44 AM EDT [facility] MCHC 32.0 30.7 - 35.5 g/dL LAB HEMATOLOGY METHOD 04/27/2021 10:44 AM EDT [facility] RDW 12.8 11.5 - 14.5 % LAB HEMATOLOGY METHOD 04/27/2021 10:44 AM EDT [facility] MPV 9.4 8.8 - 12.5 fL LAB HEMATOLOGY METHOD 04/27/2021 10:44 AM EDT [facility] nRBC 0.0 <=0.0 per 100 WBCs LAB HEMATOLOGY METHOD 04/27/2021 10:44 AM EDT [facility] Differential Type Automated LAB HEMATOLOGY METHOD 04/27/2021 10:44 AM EDT [facility] Neutrophils % 74.0 % LAB HEMATOLOGY METHOD 04/27/2021 10:44 AM EDT [facility] Lymphocytes % 16.0 % LAB HEMATOLOGY METHOD 04/27/2021 10:44 AM EDT [facility] Monocytes % 8.0 % LAB HEMATOLOGY METHOD 04/27/2021 10:44 AM EDT [facility] Eosinophils % 1.0 % LAB HEMATOLOGY METHOD 04/27/2021 10:44 AM EDT [facility] Basophils % 0.0 % LAB HEMATOLOGY METHOD 04/27/2021 10:44 AM EDT [facility] Immature Granulocytes % 1.0 % LAB HEMATOLOGY METHOD 04/27/2021 10:44 AM EDT [facility] Neutrophils Absolute 8.31(H) 1.60 - 6.10 10*3/uL LAB HEMATOLOGY METHOD 04/27/2021 10:44 AM EDT [facility] Lymphocytes Absolute 1.83 1.20 - 3.90 10*3/uL LAB HEMATOLOGY METHOD 04/27/2021 10:44 AM EDT [facility] Monocytes Absolute 0.96(H) 0.30 - 0.90 10*3/uL LAB HEMATOLOGY METHOD 04/27/2021 10:44 AM EDT [facility] Eosinophils Absolute 0.16 0.00 - 0.50 10*3/uL LAB HEMATOLOGY METHOD 04/27/2021 10:44 AM EDT [facility] Basophils Absolute 0.04 0.00 - 0.10 10*3/uL LAB HEMATOLOGY METHOD 04/27/2021 10:44 AM EDT [facility] Immature Granulocytes Absolute 0.08(H) 0.00 - 0.06 10*3/uL LAB HEMATOLOGY METHOD 04/27/2021 10:44 AM EDT [facility] Blood Venous blood specimen / Unknown Venipuncture / Unknown 04/27/2021 10:30 AM EDT 04/27/2021 10:36 AM EDT Narrative [facility] - 04/27/2021 10:44 AM EDT Therapeutic decision making should be based on absolute values, rather than percentages. Viet Jefferson APRN, CNM LAB BLOOD ORDERABLES Fin al Result Performing Organization Address City/[facility] Co de Phone Number [facility] [address] [place] [address] * Type and Screen (04/27/2021 10:30 AM EDT) ABO/Rh O Positive 04/27/2021 9:25 AM EDT BLOOD BANK Antibody Screen Negative 04/27/2021 9:25 AM EDT [facility] Blood Venous blood specimen / Unknown Venipuncture / Unknown 04/27/2021 10:30 AM EDT 04/27/2021 11:02 AM EDT Viet Jefferson APRN, CNM LAB BLOOD BANK TEST ORDE RABLES Final Result Performing Organization Address [facility] de Phone Number BLOOD BANK [address] documented in this encounter Visit Diagnoses Diagnosis Encounter for supervision of low-risk first in second trimester documented in this encounter Admitting Diagnoses Diagnosis Encounter for supervision of normal Encounter for supervision of low-risk first in second trimester documented in this encounter Administered Medications Inactive Administered Medications - up to 3 most recent administrations Medication Order MAR Action Action Date Dose Rate Site acetaminophen (Tylenol) tablet 650 mg 650 mg, Oral, Every 6 hours scheduled, First dose on Sat04/28/21 at 0000, Until Discontinued, Routine, Given 04/28/2021 6:21 AM EDT 650 mg Given 04/28/2021 12:06 AM EDT 650 mg docusate sodium (Colace) capsule 200 mg 200 mg, Oral, 2 times daily, First dose on Hilda 04/27/21 at 2200, Until Discontinued, Routine, Given 04/29/2021 10:41 AM EDT 200 mg Given 04/28/2021 8:09 PM EDT 200 mg Given 04/28/2021 10:36 AM EDT 200 mg fentanyl + bupivacaine clinician bolus dose 1-5 mL 1-5 mL, Epidural, As needed, Starting on Hilda 04/27/21 at 1642, Until 04/29/21 at 1455, Routine, severe pain, moderate pain fentaNYL 2 mcg/mL + bupivacaine 1 mg/ml 0.2-0.1-0.9 MG/100ML-% prefilled INDUSTRIAL MAINTENANCE MANAGER cassette - Pyxis Override Pull fentaNYL 2 mcg/mL + bupivacaine 1 mg/mL epidural PCEA Continuous Rate: 0 mL/hr (0 mcg/hr), Patient Bolus Dose: 5 mL (10 mcg), Patient Bolus Lockout Interval: 15 Minutes, Programmed Intermittent Bolus Dose (NO Continuous Rate): 8 mL, Programmed Intermittent Bolus Dose Interval - NO Continuous Rate: 45 min, Epidural, Routine New Bag 04/27/2021 5:25 PM EDT ibuprofen tablet 600 mg 600 mg, Oral, Every 6 hours, First dose on Hilda 04/27/21 at 2200, Until Discontinued, Routine, PostpartumIndications:Mild to Moderate Pain Given 04/29/2021 10:41 AM EDT 600 mg Given 04/29/2021 2:41 AM EDT 600 mg Given 04/28/2021 8:09 PM EDT 600 mg lactated Ringer's bolus 500 mL 500 mL, Intravenous, Once, 1 dose, On Hilda 04/27/21 at 1645, Administer over 2 Hours, Routine New Bag 04/27/2021 4:45 PM EDT 500 mL 250 mL/hr lactated Ringer's infusion 125 mL/hr, Intravenous, Continuous, Starting on Hilda 04/27/21 at 0945, Until 04/29/21 at 1455, Routine Rate/Dose Verify 04/27/2021 6:50 PM EDT 125 mL/hr 125 mL/hr New Bag 04/27/2021 11:11 AM EDT 125 mL/hr 125 mL/hr oxytocin (Pitocin) infusion in sodium chloride 0.9% 20 units/1000 mL 1-30 dimitrios-units/min (3-90 mL/hr), Intravenous, Titrated, Starting on Hilda 04/27/21 at 1030, Until 04/29/21 at 1455, Routine Rate/Dose Verify 04/27/2021 6:50 PM EDT 5 dimitrios-units/min 15 mL/hr Rate/Dose Change 04/27/2021 1:04 PM EDT 5 dimitrios-units/min 15 mL/hr Rate/Dose Change 04/27/2021 12:19 PM EDT 3 dimitrios-units/min 9 mL/hr oxytocin (Pitocin) infusion in sodium chloride 0.9% 20 units/1000 mL 1,000 mL/hr, Intravenous, Once, 1 dose, On Hilda 04/27/21 at 2200, Routine New Bag 04/27/2021 9:00 PM EDT 1,000 mL/hr 1000 mL/hr penicillin G potassium IVPB 3 Million Units 3 Million Units, Intravenous, Every 4 hours, First dose on Sat04/27/21 at 0945, Until Discontinued, Routine, Pre-Delivery New Bag 04/27/2021 7:09 PM EDT 3 Million Units 100 mL/hr New Bag 04/27/2021 3:15 PM EDT 3 Million Units 100 mL/h r penicillin G potassium IVPB 6 Million Units 6 Million Units, Intravenous, Once, 1 dose, On Sat04/27/21 at 0945, Routine, Pre-Delivery New Bag 04/27/2021 11:06 AM EDT 6 Million Units 200 mL/hr sodium chloride 0.9 % flush 3 mL 3 mL, Intravenous, As needed, Starting on Sat04/27/21 at 0924, Until 04/29/21 at 1455, Routine, Pre-Delivery, line care documented in this encounter Active and Recently Administered Medications Times are shown in EDT. Scheduled Medication Order 04/27/2021 04/28/202104/2904/29/2021 acetaminophen (Tylenol) tablet 650 mg 650 mg, Oral, Every 6 hours scheduled, First dose on Sat04/28/21 at 0000, Until Discontinued, Routine, 0006 (Given - Provider: Jerrell Corona RN)0621 (Given - Provider: Jerrell Corona RN)1200 (Not Given - Provider: Yesica Michelle RN - Reason: Patient/family refused)1999 (Not Given - Provider: Inez Jameson RN - Reason: Patient/family refused) 0000 (Not Given - Provider: Inez Jameson RN - Reason: Patient/family refused)0600 (Canceled Entry - Provider: Automatic Discharge Provider - Comment: Automatically canceled at discontinue of medication order)1200 (Canceled Entry - Provider: Automatic Discharge Provider - Comment: Automatically canceled at discontinue of medication order) docusate sodium (Colace) capsule 200 mg 200 mg, Oral, 2 times daily, First dose on Sat04/27/21 at 2200, Until Discontinued, Routine, 0006 (Given - Provider: Jerrell Corona RN - Comment: Patient delivering)1036 (Given - Provider: Azul Jarrell RN)2008 (Given - Provider: Inez Jameson RN) 1041 (Given - Provider: Emma Velarde RN) ibuprofen tablet 600 mg 600 mg, Oral, Every 6 hours, First dose on Sat04/27/21 at 2200, Until Discontinued, Routine, 2300 (Given - Provider: Watson Severino RN) 0344 (Given - Provider: Jerrell Corona RN)1037 (Given - Provider: Azul Jarrell RN)2008 (Given - Provider: Inez Jameson RN)2200 (Not Given - Provider: Inez Jameson RN - Reason: Other - Comment: dose rescheduled) 0241 (Given - Provider: Inez Jameson RN)0400 (Not Given - Provider: Inez Jameson RN - Reason: Patient/family refused - Comment: dose rescheduled)1041 (Given - Provider: Emma Velarde RN) lactated Ringer's bolus 500 mL (COMPLETED) 500 mL, Intravenous, Once, 1 dose, On Hilda 04/27/21 at 1645, Administer over 2 Hours, Routine 1645 (New Bag - Provider: Kylah Damon, RYAN) ondansetron (Zofran) injection 4 mg 4 mg, Intravenous, Once, 1 dose, On Hilda 04/27/21 at 0945, Routine, Pre-Delivery 0945 (Not Given - Provider: Kylah Damon, RYAN - Reason: Patient/family refused) oxytocin (Pitocin) infusion in sodium chloride 0.9% 20 units/1000 mL (COMPLETED) 1,000 mL/hr, Intravenous, Once, 1 dose, On Hilda 04/27/21 at 2200, Routine 2100 (New Bag - Provider: Watson Severino, YRAN) penicillin G potassium IVPB 3 Million Units (CANCELED) 3 Million Units, Intravenous, Every 4 hours, First dose on Hilda 04/27/21 at 0945, Until Discontinued, Routine, Pre-Delivery 1345 (Canceled Entry - Provider: Kylah Damon RN - Comment: Ordered under wrong time)1515 (New Bag - Provider: Kylah Damon, RYAN)1909 (New Bag - Provider: Kylah Damon, RYAN)2300 (Not Given - Provider: Jerrell Corona RN - Reason: Other - Comment: DC) penicillin G potassium IVPB 6 Million Units (COMPLETED) 6 Million Units, Intravenous, Once, 1 dose, On Hilda 04/27/21 at 0945, Routine, Pre-Delivery 1106 (New Bag - Provider: Kylah Damon, RYAN) Continuous Medication Order 04/27/2021 04/28/2021 04/29/2021 fentaNYL 2 mcg/mL + bupivacaine 1 mg/mL epidural PCEA(Linked Group 1) Continuous Rate: 0 mL/hr (0 mcg/hr), Patient Bolus Dose: 5 mL (10 mcg), Patient Bolus Lockout Interval: 15 Minutes, Programmed Intermittent Bolus Dose (NO Continuous Rate): 8 mL, Programmed Intermittent Bolus Dose Interval - NO Continuous Rate: 45 min, Epidural, Routine 1725 (New Bag - Provider: Kylah Damon, RYAN) lactated Ringer's infusion 125 mL/hr, Intravenous, Continuous, Starting on Hilda 04/27/21 at 0945, Until 7/3/21 at 1455, Routine 1111 (New Bag - Provider: Kylah Damon RN)1850 (Rate/Dose Verify - Provider: Kylah Damon RN) oxytocin (Pitocin) infusion in sodium chloride 0.9% 20 units/1000 mL 1-30 dimitrios-units/min (3-90 mL/hr), Intravenous, Titrated, Starting on Hilda 04/27/21 at 1030, Until 04/29/21 at 1455, Routine 1115 (New Bag - Provider: Kylah Damon RN)1219 (Rate/Dose Change - Provider: Kylah Damon, RYAN)1304 (Rate/Dose Change - Provider: Kylah Damon, RYAN)1850 (Rate/Dose Verify - Provider: Kylah Damon RN)1909 (Handoff - Provider: Kylah Damon RN)205 (Stopped - Provider: Watson Severino RN) PRN Medication Order 04/27/2021 04/28/2021 04/29/2021 [id number]-Mawz vera (Dermoplast) topical spray 1 spray Topical, 4 times daily PRN, Starting on Hilda 04/27/21 at 2154, Until 04/29/21 at 1455, Routine, mild pain, irritation calcium carbonate (Tums) chewable tablet 1,000 mg 1,000 mg, Oral, 4 times daily PRN, Starting on Hilda 04/27/21 at 2154, Until 04/29/21 at 1455, Routine, , indigestion, heartburn diphenhydrAMINE (BENADryl) tablet 25 mg 25 mg, Oral, Every 6 hours PRN, Starting on Hilda 04/27/21 at 2154, Until 04/29/21 at 1455, Routine, , itching fentanyl + bupivacaine clinician bolus dose 1-5 mL(Linked Group 1) 1-5 mL, Epidural, As needed, Starting on Hilda 04/27/21 at 1642, Until 04/29/21 at 1455, Routine, severe pain, moderate pain hydrocortisone (Anusol-HC) 2.5 % rectal cream 1 application Rectal, 2 times daily PRN, Starting on Hilda 04/27/21 at 2154, Until 04/29/21 at 1455, Routine, hemorrhoids lansinoh lanolin cream 1 application Topical, As needed, Starting on Hilda 04/27/21 at 2154, Until 04/29/21 at 1455, Routine, dry skin ondansetron ODT (Zofran-ODT) disintegrating tablet 4 mg 4 mg, Oral, Every 8 hours PRN, Starting on Hilda 04/27/21 at 2154, Until 04/29/21 at 1455, Routine, , nausea, vomiting promethazine (Phenergan) tablet 25 mg 25 mg, Oral, Every 4 hours PRN, Starting on Hilda 04/27/21 at 2154, Until 04/29/21 at 1455, Routine, , nausea, vomiting sodium chloride 0.9 % flush 3 mL(Linked Group 2) 3 mL, Intravenous, As needed, Starting on Hilda 04/27/21 at 0924, Until 04/29/21 at 1455, Routine, Pre-Delivery, line care witch olive-glycerin (Tucks) pad 1 each Topical, 4 times daily PRN, Starting on Hilda 04/27/21 at 2154, Until 04/29/21 at 1455, Routine, irritation, hemorrhoids Linked Groups Order Group 1: fentaNYL 2 mcg/mL + bupivacaine 1 mg/mL epidural PCEAJump to med Continuous Rate: 0 mL/hr (0 mcg/hr), Patient Bolus Dose: 5 mL (10 mcg), Patient Bolus Lockout Interval: 15 Minutes, Programmed Intermittent Bolus Dose (NO Continuous Rate): 8 mL, Programmed Intermittent Bolus Dose Interval - NO Continuous Rate: 45 min, Epidural, Routine And fentanyl + bupivacaine clinician bolus dose 1-5 mLJump to med 1-5 mL, Epidural, As needed, Starting on Hilda 04/27/21 at 1642, Until 04/29/21 at 1455, Routine, severe pain, moderate pain Group 2: Insert peripheral IV (CANCELED) Once, On Hilda 04/27/21 at 0925, For 1 occurrence, Pre-Delivery And Saline lock IV (CANCELED) Once, On Hilda 04/27/21 at 0925, For 1 occurrence, Pre-Delivery And sodium chloride 0.9 % flush 3 mLJump to med 3 mL, Intravenous, As needed, Starting on Hilda 04/27/21 at 0924, Until 04/29/21 at 1455, Routine, Pre-Delivery, line care documented in this encounter Care Teams Oil Exploration Engineer Relationship Specialty Start Date End Date Pcp, No PCP - General 04/06/21 05/22/24 documented as of this encounter
--- OUTSIDE RECORDS SUMMARY | 2024-09-19 09:09 | XMS_ITS | Encounter Summary ---
Author Organization Healthcare Address [address] [place] [address] Care Team Providers Care Machine Hamper Maker Name Role Phone Pcp, No Primary Care Provider Unavailabl e Encounter Details Date Type Department Care Team (Latest Contact Info) Description 04/20/2021 Travel Social History Tobacco Use Types Packs/Day [...] have Coronavirus / COVID-19? No / Unsure 04/20/2021 3:20 PM EDT documented as of this encounter Plan of Treatment Upcoming Encounters Date Type Department Care Team (Late st Contact Info) Description 09/21/2024 2:00 PM EST Office Visit [facility] [address] [place] [address] Mitra Callaway APRN, CNSiddharth [address] [place] [address] documented as of this encounter Visit Diagnoses Not on filedocumented in this encounter Care Teams Machine Hamper Maker Relationship Specialty Start Date End Date Pcp, No PCP - General 04/06/21 05/22/24 documented as of this encounter
--- OUTSIDE RECORDS SUMMARY | 2024-09-19 09:09 | XMS_ITS | Encounter Summary ---
Author Organization Healthcare Address [address] [place] [address] Care Team Providers Care Manager Property Name Role Phone Unavailable Primary Care Provider Unavailabl e Encounter Details Date Type Department Care Team (Late st Contact Info) Description 07/05/2017 [facility] Vitals Encounter [facility] [address] [place] [address] ProviderElvis MD [address] [place], [place] [id number] Social History Tobacco Use Types Packs/Day Years [...] - Inhaled Oxygen Concentration - - Weight 64.6 kg (142 lb 6 oz) 07/05/2017 11:27 AM EDT Height 162.6 cm (5' 4 ) 07/05/2017 11:27 AM EDT Body Mass Index 24.44 07/05/2017 11:27 AM EDT documented in this encounter Plan of Treatment Upcoming Encounters Date Type Department Care Team (Late st Contact Info) Description 09/21/2024 2:00 PM EST Office Visit [facility] [address] [place] [address] Mitra Callaway APRN, CNM [address] [place] [address] documented as of this encounter Visit Diagnoses Not on filedocumented in this encounter
--- OUTSIDE RECORDS SUMMARY | 2024-09-19 09:09 | XMS_ITS | Encounter Summary ---
Author Organization [facility] Address [address] [place] [address] Care Team Providers Care Credentialing Specialist Name Role Phone Pcp, No Primary Care Provider Unavailabl e Encounter Details Date Type Department Care Team (Latest Contact Info) Description 04/06/2021 2:15 PM EDT Routine [facility] [address], [address] [place] [address] Macarena Palumbo, SPECIAL DISTRIBUTION CLERK, CNM [address] [place] [address] Vaginal infection (Primary Dx) Social History Tobacco Use Types [...] have Coronavirus / COVID-19? No / Unsure 04/06/2021 2:07 PM EDT documented as of this encounter Last Filed Vital Signs Vital Sign Reading Time Taken Comments Blood Pressure 128/80 04/06/2021 2:26 PM EDT Pulse - - Temperature - - Respiratory Rate - - Oxygen Saturation - - Inhaled Oxygen Concentration - - Weight 71.5 kg (157 lb 10.1 oz) 04/06/2021 2:26 PM EDT Height - - Body Mass Index 27.06 03/30/2021 9:17 AM EDT documented in this encounter Miscellaneous Notes * Progress Notes - Gabriela Thompson MA - 04/06/2021 2:15 PM EDT Pt is here today for a COLE. I think I may have a UTI. S/s include yellow/green discharge and vaginal odor, and abdominal cramping. Pelvic pain, it's hard it to sleep at night due to the pain. Pt denies any headaches or vision changes, but she is having pedal edema. * Progress Notes - Macarena Palumbo APRN, CNM - 04/06/2021 2:15 PM EDT MDL for odor/discharge; will await results for tx. Exam nl. Overview updated. UA: small leuks; neg nitrites; trace blood Occas BH ctx. documented in this encounter Plan of Treatment Upcoming Encounters Date Type Department Care Team (Late st Contact Info) Description 09/21/2024 2:00 PM EST Office Visit [facility] [address], [address] [place] [address] Mitra Callaway APRN, CNM [address] [place] [address] documented as of this encounter Procedures Procedure Name Priority Date/Time Associated Diagnosis Comments POCT URINALYSIS DIPSTICK Routine 04/06/2021 2:52 PM EDT Vaginal infection GROUP B STREPTOCOCCUS BY PCR Routine 11/09/2020 TREPONEMA PALLIDUM (SYPHILIS) ANTIBODIES WITH REFLEX TO RPR AND RPR TITER (THOSE WITH NO KNOWN SYPHILIS) Routine 08/30/2020 CHLAMYDIA TRACHOMATIS DNA BY PCR Routine 08/30/2020 HIV 1/2 ANTIBODY/ANTIGEN SCREEN WITH REFLEX TO HIV I/II DIFFERENTIATION Routine 08/30/2020 RUBELLA ANTIBODY IGG Routine 08/30/2020 HEPATITIS B SURFACE ANTIGEN Routine 08/30/2020 documented in this encounter Results * (ABNORMAL) Urine dip (04/06/2021 2:52 PM EDT) POCT Glucose Urine n Negative mg/dL POCT Bilirubin, Urine hn Negative POCT Ketones, Urine n Negative mg/dL POCT Blood, Urine tr Negative POCT Protein, Urine n mg/dL POCT Urobilinogen, Urine n 0.2 E.U./dL POCT Nitrite, Urine Negative Negative POCT Leukocyte Esterase, Urine Small(A) Negative Test Strip Lot Number n Test Strip Lot Expiration n Urine Urine specimen obtained by clean catch procedure / Unknown 04/06/2021 2:52 PM EDT Macarena Palumbo APRN, CNM POINT OF CARE TEST ENT ER/EDIT ORDERABLES Final Result * Group B Streptococcus by PCR (11/09/2020) External Strep Group B Ag Positive Comment:in urine Swab Rectovaginal / Unknown Historical Provider MD LAB BLOOD ORDERABLES Dahiana l Result * Rubella Antibody IgG (08/30/2020) External Rubella IGG Quantitation Negative Blood Venous blood specimen / Unknown Historical Provider MD LAB BLOOD ORDERABLES Dahiana l Result * Hepatitis B Surface Antigen (08/30/2020) External Hepatitis B Surface Ag Negative Negative, None Detected Blood Venous blood specimen / Unknown Result [facility] Provider MD LAB BLOOD ORDERABLES Dahiana l Result * Syphilis Antibodies, IgG and IgM (08/30/2020) External Syphilis IgG Antibody Negative Comment:by RPR Blood Venous blood specimen / Unknown Result [facility] Provider MD LAB BLOOD ORDERABLES Dahiana l Result * Chlamydia trachomatis DNA by PCR (08/30/2020) Pathologist [facility] External Chlamydia Trachomatis Negative Urine Result [facility] LAB MICROBIOLOGY - GENERA L ORDERABLES Final Result * HIV 1 & 2 Antibody/Antigen Screen (08/30/2020) Pathologist [facility] External HIV 1/2 Ab/Ag Negative Blood Venous blood specimen / Unknown Result [facility] MD LAB BLOOD ORDERABLES Dahiana l Result documented in this encounter Visit Diagnoses Diagnosis Vaginal infection- Primary Unspecified vaginitis and vulvovaginitis documented in this encounter Care Teams Credentialing Specialist Relationship Specialty Start Date End Date Pcp, No PCP - General 04/06/21 05/22/24 documented as of this encounter
--- OUTSIDE RECORDS SUMMARY | 2024-09-19 09:09 | XMS_ITS | Encounter Summary ---
Author Organization Healthcare Address [address] [place] [address] Care Team Providers Care Cna Caregiver Name Role Phone Pcp, No Primary Care Provider Unavailabl e Encounter Details Date Type Department Care Team (Late st Contact Info) Description 04/13/2021 Orders Only [facility] [address], [address] [place] [address] Yaz Graves 38 weeks gestation of Social History Tobacco Use Types Packs/Day Years [...] 2:00 PM EST Office Visit [facility] [address] [place] [address] Mitra Callaway APRN, COMPA [address] [place] [address] documented as of this encounter Procedures Procedure Name Priority Date/Time Associated Diagnosis Comments SARS COV-2/COVID-19 BY PCR Routine 04/13/2021 4:09 PM EDT 38 weeks gestation of documented in this encounter Results * SARS CoV-2/COVID-19 by PCR (04/13/2021 4:09 PM EDT) SARS CoV-2/COVID-1 9 RNA PCR Result Not Detected Not Detected 04/14/2021 12:59 AM EDT [facility] Swab Nasopharyngeal structure / Unknown Non-blood Collection / Unknown 04/13/2021 4:09 PM EDT 04/13/2021 8:22 PM EDT Narrative [facility] - 04/14/2021 12:59 AM EDT This assay is for in vitro diagnostic use under FDA emergency use authorization only. Negative results do not preclude infection with the SARS CoV-2 virus and should not be the sole basis of a patient treatment/management or public health decision. Follow up testing should be performed according to the current CDC recommendations. This test was performed using the [employer] Alinity m SARS CoV-2 assay, a PCR-based method. The limit of detection (LoD) for this assay is 100 copies/mL. Use of Alinity m SARS CoV-2 assay in an asymptomatic screening population is intended to be used as part of an infection control plan, that may include additional preventative measures such a predefined serial testing plan or directed testing of high-risk individuals. Negative results should be considered presumptive and do not preclude current or future infection obtained through community transmission or other exposures. Negative results must be considered in the context of an individual's recent exposures, history, presence of clinical signs and symptoms consistent with COVID-19. Keerthi Avila APRN, CNM LAB MICROBIOLOGY - GENER AL ORDERABLES Final Result [facility] [address] [place] [address] documented in this encounter Visit Diagnoses Diagnosis 38 weeks gestation of documented in this encounter Care Teams Cna Caregiver Relationship Specialty Start Date End Date Pcp, No PCP - General 04/06/21 05/22/24 documented as of this encounter
--- OUTSIDE RECORDS SUMMARY | 2024-09-19 09:09 | XMS_ITS | Encounter Summary ---
Author Organization Healthcare Address [address] [place] [address] Care Team Providers Care Concrete Smoother Name Role Phone Unavailable Primary Care Provider Unavailabl e Encounter Details Date Type Department Care Team (Late st Contact Info) Description 07/15/2017 [facility] Vitals Encounter [facility] OUTPATIENT CONVERSIONS [address] [place] [address] ProviderElvis MD [address] [place], [place] [id number] Social History Tobacco Use Types Packs/Day Years [...] - Inhaled Oxygen Concentration - - Weight 65.5 kg (144 lb 6.1 oz) 07/15/2017 3:06 P M EDT Height 162.6 cm (5' 4 ) 07/15/2017 3:06 PM EDT Body Mass Index 24.78 07/15/2017 3:06 PM EDT documented in this encounter Plan of Treatment Upcoming Encounters Date Type Department Care Team (Late st Contact Info) Description 09/21/2024 2:00 PM EST Office Visit [facility] [address], [address] [place] [address] Mitra Callaway, CORPORATE DIRECTOR OF PHARMACY, CNM [address] [place] [address] documented as of this encounter Visit Diagnoses Not on filedocumented in this encounter
--- OUTSIDE RECORDS SUMMARY | 2024-09-19 09:09 | XMS_ITS | Encounter Summary ---
Author Organization [facility] Address [address] [place] [address] Care Team Providers Care Reverser Name Role Phone Pcp, No Primary Care Provider Unavailabl e Encounter Details Date Type Department Care Team (Late st Contact Info) Description 05/25/2021 Telephone [facility] [address], [address] [place] [address] Kelly Montague [facility] [address] [place] [address] Social History Tobacco Use Types Packs/Day Years [...] have Coronavirus / COVID-19? No / Unsure 05/18/2021 10:52 AM EDT documented as of this encounter Miscellaneous Notes * Telephone Encounter - Kelly Benz MA - 05/25/2021 10:32 AM EDT ----- Message from Keerthi Avila CNM sent at 05/19/2021 2:18 PM EDT ----- Please let her know her chlamydia retest was negative. documented in this encounter Plan of Treatment Upcoming Encounters Date Type Department Care Team (Late st Contact Info) Description 09/21/2024 2:00 PM EST Office Visit [facility] [address], [address] [place] [address] Mitra Callaway APRN, CNM [address] [place] [address] documented as of this encounter Visit Diagnoses Not on filedocumented in this encounter Care Teams Reverser Relationship Specialty Start Date End Date Pcp, No PCP - General 04/06/21 05/22/24 documented as of this encounter
--- OUTSIDE RECORDS SUMMARY | 2024-09-19 09:09 | XMS_ITS | Encounter Summary ---
Author Organization [facility] Address [address] [place] [address] Care Team Providers Care Rn Registry Name Role Phone Pcp, No Primary Care Provider Unavailabl e Encounter Details Date Type Department Care Team (Latest Contact Info) Description 05/18/2021 10:45 AM EDT Office Visit [facility] [address], [address] [place] [address] Keerthi Avila, KILN FIREMAN, CNM [address] [place] [address] Encounter for other general counseling or advice on contraception (Primary Dx) Social History Tobacco Use Types [...] Sign Reading Time Taken Comments Blood Pressure 122/76 05/18/2021 11:41 AM EDT Pulse - - Temperature - - Respiratory Rate - - Oxygen Saturation - - Inhaled Oxygen Concentration - - Weight 62.6 kg (138 lb 0.1 oz) 05/18/2021 11:41 AM EDT Height - - Body Mass Index 23.69 04/27/2021 10:24 AM EDT documented in this encounter Miscellaneous Notes * Progress Notes - Gabriela Thompson MA - 05/18/2021 10:45 AM EDT 3wk PP - EPDS given Overall mood great, and recovery going well. No questions or concerns. PPBC * Progress Notes - Keerthi Avila APRN, CNM - 05/18/2021 10:45 AM EDT HPI: 26 y.o. s/p on 04/27/21 with HM presents for 3wk PP visit. Pt doing well. going well. Denies pain. Denies issues with dysuria or constipation. Mood stable. Lochia minimal-essentially resolved. Plans interval BTL for control- will do mini pill until then. Desires MIAR today for chlamydia. Visit Vitals BP 122/76 Wt 62.6 kg (138 lb 0.1 oz) BMI 23.69 kg/m?? OB Status Recent Smoking Status Never Smoker BSA 1.68 m?? Exam: Constitution: well nourished Psychiatric: mood appropriate Plan: : -meeting all goals PPD Screening: -EPDS:0 -reviewed precautions Contraception counseling: -referral for pre-op with groundskeeping maintenance worker placed today, plan for interval BTL. Will do mini pill until then Recent Chlamydia infection: -4 weeks s/p treatment, MIRA urine today RTC: 3wks for 6wk PP/annual exam documented in this encounter Plan of Treatment Upcoming Encounters Date Type Department Care Team (Late st Contact Info) Description 09/21/2024 2:00 PM EST Office Visit [facility] [address], [address] [place] [address] Mitra Callaway APRN, COMPA [address] [place] [address] documented as of this encounter Procedures Procedure Name Priority Date/Time Associated Diagnosis Comments CHLAMYDIA TRACHOMATIS DNA BY PCR Routine 05/18/2021 6:50 PM EDT Encounter for other general counseling or advice on contraception NEISSERIA GONORRHEA DNA BY PCR Routine 05/18/2021 6:50 PM EDT Encounter for other general counseling or advice on contraception documented in this encounter Results * Chlamydia trachomatis DNA by PCR (05/18/2021 6:50 PM EDT) Chlamydia trachomatis DNA PCR Result Not Detected Not Detected 05/19/2021 2:07 PM EDT [facility] Urine Urine specimen obtained by clean catch procedure / Unknown Non-blood Collection / Unknown 05/18/2021 6:50 PM EDT 05/18/2021 6:49 PM EDT Narrative [facility] - 05/19/2021 2:07 PM EDT This test is performed by the [employer] m2000 instrument for Real Time PCR C. trachomatis and N. gonorrhea. This test is FDA approved for use with endocervical, vaginal, and urine specimens. This test is used for clinical purposes. It should not be regarded as invesigational or for research. The [facility] is certified under the Clinical Laboratory Improvement Amendments of 1988 (CLIA-88) as qualified to perform high complexity clinical laboratory testing. Keerthi Avila APRN, CNM LAB MICROBIOLOGY - GENER AL ORDERABLES Final Result [facility] [address] [place] [address] * Neisseria gonorrhea DNA by PCR (05/18/2021 6:50 PM EDT) Neisseria gonorrhea DNA PCR Result Not Detected Not Detected. 05/19/2021 2:07 PM EDT [facility] Urine Urine specimen obtained by clean catch procedure / Unknown Non-blood Collection / Unknown 05/18/2021 6:50 PM EDT 05/18/2021 6:49 PM EDT Narrative [facility] - 05/19/2021 2:07 PM EDT This test is performed by the [id number] instrument for Real Time PCR C. trachomatis and N. gonorrhea. This test is FDA approved for use with endocervical, vaginal, and urine specimens. This test is used for clinical purposes. It should not be regarded as invesigational or for research. The [facility] is certified under the Clinical Laboratory Improvement Amendments of 1988 (CLIA-88) as qualified to perform high complexity clinical laboratory testing. Keerthi Avila APRN, CNM LAB MICROBIOLOGY - GENER AL ORDERABLES Final Result [facility] [address] [place] [id number] documented in this encounter Visit Diagnoses Diagnosis Encounter for other general counseling or advice on contraception- Primary documented in this encounter Care Teams Rn Registry Relationship Specialty Start Date End Date Pcp, No PCP - General 04/06/21 05/22/24 documented as of this encounter
--- OUTSIDE RECORDS SUMMARY | 2024-09-19 09:09 | XMS_ITS | Encounter Summary ---
Author Organization [facility] Address [address] [place] [address] Care Team Providers Care Electrical Logging Operator Name Role Phone Pcp, No Primary Care Provider Unavailabl e Encounter Details Date Type Department Care Team (Latest Contact Info) Description 04/06/2021 Travel Social History Tobacco Use Types Packs/Day [...] 2:00 PM EST Office Visit [facility] [address], [address] [place] [address] Mitra Callaway APRN, CNSiddharth [address] [place] [address] documented as of this encounter Visit Diagnoses Not on filedocumented in this encounter Care Teams Electrical Logging Operator Relationship Specialty Start Date End Date Pcp, No PCP - General 04/06/21 05/22/24 documented as of this encounter
--- OUTSIDE RECORDS SUMMARY | 2024-09-19 09:09 | XMS_ITS | Encounter Summary ---
Author Organization [facility] Address [address] [place] [address] Care Team Providers Care Marine Fire Fighter Name Role Phone Pcp, No Primary Care Provider Unavailabl e Encounter Details Date Type Department Care Team (Latest Contact Info) Description 04/20/2021 3:15 PM EDT Routine [facility] [address], [address] [place] [address] Keerthi Avila, HAT FORMING MACHINE FEEDER, CNM [address] [place] [address] Chlamydia (Primary Dx) Social History Tobacco Use Types [...] Sign Reading Time Taken Comments Blood Pressure 124/71 04/20/2021 3:40 PM EDT Pulse - - Temperature - - Respiratory Rate - - Oxygen Saturation - - Inhaled Oxygen Concentration - - Weight 72.5 kg (159 lb 13.3 oz) 04/20/2021 3:40 PM EDT Height - - Body Mass Index 27.44 03/30/2021 9:17 AM EDT documented in this encounter Miscellaneous Notes * Progress Notes - Keerthi Avila APRN, CNM - 04/20/2021 3:15 PM EDT 39w2d here for COLE. Pt reports discharge still present: MDL results: +chlamydia. Rx sent for azith 1gm po. Discussed avoiding SIC with partner until all treated. Discussed giving time for abx to workprior to promoting labor, pt desires to avoid CE/sweep today. Will retest 4 wks/pp for MIRA. RTC: 1 wk COLE documented in this encounter Plan of Treatment Upcoming Encounters Date Type Department Care Team (Late st Contact Info) Description 09/21/2024 2:00 PM EST Office Visit [facility] [address], [address] [place] [address] Mitra Callaway APRN, CNM [address] [place] [address] documented as of this encounter Visit Diagnoses Diagnosis Chlamydia- Primary Other specified chlamydial infection, in conditions classified elsewhere and of unspecified site documented in this encounter Care Teams Marine Fire Fighter Relationship Specialty Start Date End Date Pcp, No PCP - General 04/06/21 05/22/24 documented as of this encounter
--- OUTSIDE RECORDS SUMMARY | 2024-09-19 09:09 | XMS_ITS | Encounter Summary ---
Author Organization [facility] Address [address] [place] [address] Care Team Providers Care Social Science Professor Name Role Phone Pcp, No Primary Care Provider Unavailabl e Encounter Details Date Type Department Care Team (Late st Contact Info) Description 12/06/2021 3:15 PM EST Office Visit [facility] [address], [address] [place] [address] Viet Jefferson, MANAGER ENTERPRISE, CNM [address] [place] [address] Healthcare maintenance (Primary Dx) Social History Tobacco Use Types [...] have Coronavirus / COVID-19? No / Unsure 12/06/2021 3:08 PM EST documented as of this encounter Last Filed Vital Signs Vital Sign Reading Time Taken Comments Blood Pressure 129/83 12/06/2021 3:20 PM EST Pulse 86 12/06/2021 3:20 PM EST Temperature - - Respiratory Rate - - Oxygen Saturation - - Inhaled Oxygen Concentration - - Weight 51.9 kg (114 lb 6.7 oz) 12/06/2021 3:20 P M EST Height 162.6 cm (5' 4 ) 12/06/2021 3:20 PM EST Body Mass Index 19.64 12/06/2021 3:20 PM EST documented in this encounter Miscellaneous Notes * Progress Notes - Kelly Benz MA - 12/06/2021 3:15 PM EST Had Chlamydia several months ago, tx'd, went away. also tx'd. Experiencing discolored discharge and lower pelvic pain. MDL in room for ABCL. * Progress Notes - Viet Jefferson, DANNIELLE, COMPA - 12/06/2021 3:15 PM EST Gynecology Progress Note Subjective HPI Minda is a 26y/o here today for vaginal discharge. Feels it has a color but not an odor. Has been happening for 2 weeks. Some pelvic pain but only tender to touch lower abdomen. LMP was6 weeks prior. Does not think she is . Took UPT last week. Has BTL consult next week with [employer] OFFICER. Recent chlamydia infection s/p treatment and partner treatment; but states this is a source of anxiety for her. Questions about hot to prevent recurrent BV. Objective Physical Exam Constitutional: Appearance: Normal appearance. Genitourinary: Vulva normal. Vaginal discharge present. Vaginal exam comments: White-green, moderate amount. Cervix is parous. Cardiovascular: Rate and Rhythm: Normal rate. Pulmonary: Effort: Pulmonary effort is normal. Abdominal: General: Abdomen is flat. Palpations: Abdomen is soft. Musculoskeletal: Cervical back: Normal range of motion. Neurological: Mental Status: She is oriented to person, place, and time. Psychiatric: Behavior: Behavior normal. Vitals reviewed. Labs: MDL obtained Assessment/Plan Assess/Plan SmartLinks: Diagnoses and all orders for this visit: Healthcare maintenance - POCT Urine : Negative - Neisseria gonorrhea DNA by PCR; Future - Chlamydia trachomatis DNA by PCR; Future Vaginitis: - discussed recurrent BV hx and prevention tips including probiotics and Boria Acid - MDL obtained , awaiting results to treat Encounter Time: A total of 20-29 minutes was spent on this visit reviewing the patient's history, counseling the patient, and documenting this visit. (Est [id number]) documented in this encounter Plan of Treatment Upcoming Encounters Date Type Department Care Team (Late st Contact Info) Description 09/21/2024 2:00 PM EST Office Visit [facility] [address], [address] [place] [address] Mitra Callaway APRN, CNM [address] [place] [address] documented as of this encounter Procedures Procedure Name Priority Date/Time Associated Diagnosis Comments POCT , URINE Routine 12/06/2021 4:10 PM EST Healthcare maintenance CHLAMYDIA TRACHOMATIS DNA BY PCR Routine 12/06/2021 4:08 PM EST Healthcare maintenance NEISSERIA GONORRHEA DNA BY PCR Routine 12/06/2021 4:08 PM EST Healthcare maintenance documented in this encounter Results * POCT Urine (12/06/2021 4:10 PM EST) Urine - Point of Care Negative - [...] of Care. INTERNAL QC OK, PREG URINE - KIT LOT NUMBER, PREG URINE - KIT EXPIRATION DATE, PREG URINE - Urine Urine specimen obtained by clean catch procedure / Unknown 12/06/2021 4:10 PM EST us Viet Jefferson APRN, CNM POINT OF CARE TEST ENTER /EDIT ORDERABLES Final Result * Chlamydia trachomatis DNA by PCR (12/06/2021 4:08 PM EST) Chlamydia trachomatis DNA PCR Result Not Detected Not Detected 12/07/2021 2:52 PM EST [facility] Urine Urine specimen obtained by clean catch procedure / Unknown Non-blood Collection / Unknown 12/06/2021 4:08 PM EST 12/06/2021 5:25 PM EST Narrative [facility] - 12/07/2021 2:52 PM EST This test is performed by the [employer] instrument for Real Time PCR C. trachomatis and N. gonorrhea. This test is FDA approved for use with endocervical, vaginal, and urine specimens. This test is used for clinical purposes. It should not be regarded as invesigational or for research. The [facility] is certified under the Clinical Laboratory Improvement Amendments of 1988 (CLIA-88) as qualified to perform high complexity clinical laboratory testing. Viet Jefferson APRN, CNM LAB MICROBIOLOGY - GENER AL ORDERABLES Final Result [facility] [address] [place] [id number] * Neisseria gonorrhea DNA by PCR (12/06/2021 4:08 PM EST) Neisseria gonorrhea DNA PCR Result Not Detected Not Detected. 12/07/2021 2:52 PM EST [facility] Urine Urine specimen obtained by clean catch procedure / Unknown Non-blood Collection / Unknown 12/06/2021 4:08 PM EST 12/06/2021 5:25 PM EST Narrative [facility] - 12/07/2021 2:52 PM EST This test is performed by the [employer] m2000 instrument for Real Time PCR C. trachomatis and N. gonorrhea. This test is FDA approved for use with endocervical, vaginal, and urine specimens. This test is used for clinical purposes. It should not be regarded as invesigational or for research. The [facility] is certified under the Clinical Laboratory Improvement Amendments of 1988 (CLIA-88) as qualified to perform high complexity clinical laboratory testing. us Viet Jefferson APRN, CNM LAB MICROBIOLOGY - GENER AL ORDERABLES Final Result Performing Organization Address City/State/[facility] Co de Phone Number [facility] [address] [place] [id number] documented in this encounter Visit Diagnoses Diagnosis Healthcare maintenance- Primary documented in this encounter Care Teams Social Science Professor Relationship Specialty Start Date End Date Pcp, No PCP - General 04/06/21 05/22/24 documented as of this encounter
--- OUTSIDE RECORDS SUMMARY | 2024-09-19 09:09 | XMS_ITS | Encounter Summary ---
Author Organization [facility] Address [address] [place] [address] Care Team Providers Care Office Services Associate Name Role Phone Pcp, No Primary Care Provider Unavailabl e Encounter Details Date Type Department Care Team (Latest Contact Info) Description 05/18/2021 Travel Social History Tobacco Use Types Packs/Day [...] 2:00 PM EST Office Visit [facility] [address] [place] [address] Mitra Callaway APRN, CNSiddharth [address] [place] [address] documented as of this encounter Visit Diagnoses Not on filedocumented in this encounter Care Teams Office Services Associate Relationship Specialty Start Date End Date Pcp, No PCP - General 04/06/21 05/22/24 documented as of this encounter
--- OUTSIDE RECORDS SUMMARY | 2024-09-19 09:09 | XMS_ITS | Encounter Summary ---
Author Organization [facility] Address [address] [place] [address] Care Team Providers Care Icer Machine Operator Name Role Phone Pcp, No Primary Care Provider Unavailabl e Encounter Details Date Type Department Care Team (Late st Contact Info) Description 04/02/2021 Abstract [facility] [address], [address] [place] [address] Macarena Palumbo APRN, COMPA [address] [place] [address] Social History Tobacco Use Types [...] 2:00 PM EST Office Visit [facility] [address], [address] [place] [address] Mitra Callaway APRN, CNM [address] [place] [address] documented as of this encounter Visit Diagnoses Not on filedocumented in this encounter Care Teams Icer Machine Operator Relationship Specialty Start Date End Date Pcp, No PCP - General 04/06/21 05/22/24 documented as of this encounter"
--- OUTSIDE RECORDS SUMMARY | 2024-09-19 09:09 | XMS_ITS | Encounter Summary ---
Author Organization [facility] Address [address] [place] [address] Care Team Providers Care Birth Attendant Name Role Phone Pcp, No Primary Care Provider Unavailabl e Reason for Visit * Reason Comments Consult tubal Encounter Details Date Type Department Care Team (Latest Contact Info) Description 12/14/2021 8:30 AM EST Office Visit [facility] Ob[facility]s [facility] Gyne[facility] [address], [address] [place] [address] Hugo Dumas MD [address] [place] [address] Sterilization consult (Primary Dx) Social History Tobacco Use Types [...] AM EST documented as of this encounter Last Filed Vital Signs Vital Sign Reading Time Taken Comments Blood Pressure 122/82 12/14/2021 8:50 AM EST Pulse - - Temperature - - Respiratory Rate - - Oxygen Saturation - - Inhaled Oxygen Concentration - - Weight 51.8 kg (114 lb 3.2 oz) 12/14/2021 8:50 A M EST Height 162.6 cm (5' 4 ) 12/14/2021 8:50 AM EST Body Mass Index 19.6 12/14/2021 8:50 AM EST documented in this encounter Miscellaneous Notes * Progress Notes - Hugo Dumas MD - 12/14/2021 8:30 AM EST Gynecology Note Subjective Chief Complaint Patient presents with ??? Consult tubal Minda Ngo is a 26 y.o. here for a new gynecologic visit. HPI 26 yo presents for consult for permanent sterilization. [facility] She does not desire future children. Risks/benefits/alternatives to permanent strilization/bilateral salpingectomy discussed today and all questions answered. KMA was signed. Past 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 She has a past medical history of Chlamydia trachomatis infection in in third trimester (04/26/2021), Depression, Encounter for routine follow-up, Irregular menstruation, unspecified, Other specified anxiety disorders, Personal history of other diseases of the nervous system andsense organs, Personal history of other infectious and parasitic diseases, Personal history of other specified conditions, Personal history of other specified conditions, and Personal history of urinary (tract) infections.She has no past medical history of Hepatitis B, Hepatitis C, or HIV disease ([facility]). Past Surgical History She has no past [...] paternal grandmother and paternal great-grandmother. Current Medications She has a current medication list which includes the following prescription(s): norethindrone. Allergies No Known Allergies Review of Systems Constitutional: Negative. HENT: Negative. Respiratory: Negative. Cardiovascular: Negative. Gastrointestinal: Negative. Genitourinary: Negative. Psychiatric/Behavioral: Negative. Objective Visit Vitals BP 122/82 Body mass index is 19.6 kg/m??. Physical Exam Constitutional: Appearance: Normal appearance. Assessment/Plan 26 yo desires permanent sterilization 1. Desires Sterilization - Risks/benefits/alternatives to permanent strilization/bilateral salpingectomy discussed today and all questions answered. Will schedule procedure and see her again for preop appointment. I personally spent a total of 20 minutes on this encounter. This time includes face to face with patient, counseling and discussion and/or coordination of care. documented in this encounter Plan of Treatment Upcoming Encounters Date Type Department Care Team (Late st Contact Info) Description 09/21/2024 2:00 PM EST Office Visit [facility] [address], [address] [place] [address] Mitra Callaway APRN, CN [address] [place] [address] documented as of this encounter Visit Diagnoses Diagnosis Sterilization consult- Primary Other general counseling and advice for contraceptive management documented in this encounter Care Teams Birth Attendant Relationship Specialty Start Date End Date Pcp, No PCP - General 04/06/21 05/22/24 documented as of this encounter
--- OUTSIDE RECORDS SUMMARY | 2024-09-19 09:09 | XMS_ITS | Encounter Summary ---
Author Organization [facility] Address [address] [place] [address] Care Team Providers Care Loan Review Analyst Name Role Phone Pcp, No Primary Care Provider Unavailabl e Reason for Visit * Reason Comments Med Refill Encounter Details Date Type Department Care Team (Late st Contact Info) Description 04/26/2021 Refill [facility] [address], [address] [place] [address] Keerthi Avila APRN, COMPA [address] [place] [address] Chlamydia Social History Tobacco Use Types Packs/Day Years [...] have Coronavirus / COVID-19? No / Unsure 04/26/2021 1:05 PM EDT documented as of this encounter Plan of Treatment Upcoming Encounters Date Type Department Care Team (Late Contact Info) Description 09/21/2024 2:00 PM EST Office Visit [facility] [address], [address] [place] [address] Mitra Callaway APRN, COMPA [address] [place] [address] documented as of this encounter Visit Diagnoses Diagnosis Chlamydia Other specified chlamydial infection, in conditions classified elsewhere and of unspecified site documented in this encounter Care Teams Loan Review Analyst Relationship Specialty Start Date End Date Pcp, No PCP - General 04/06/21 05/22/24 documented as of this encounter
--- OUTSIDE RECORDS SUMMARY | 2024-09-19 09:09 | XMS_ITS | Encounter Summary ---
Author Organization Healthcare Address [address] [place] [address] Care Team Providers Care Brake Lining Curer Name Role Phone Unavailable Primary Care Provider Unavailabl e Encounter Details Date Type Department Care Team (Late st Contact Info) Description 09/16/2017 [facility] Vitals Encounter [facility] CON[facility] [address] [place] [address] ProviderElvis MD [address] [place] [id number] Social History Tobacco Use Types Packs/Day Years [...] - Inhaled Oxygen Concentration - - Weight - - Height 162.6 cm (5' 4 ) 09/16/2017 3:54 PM EST Body Mass Index - - documented in this encounter Plan of Treatment Upcoming Encounters Date Type Department Care Team (Late st Contact Info) Description 09/21/2024 2:00 PM EST Office Visit [facility] [address], [address] [place] [address] Mitra Callaway APRN, CNM [address] [place] [address] documented as of this encounter Visit Diagnoses Not on filedocumented in this encounter
--- OUTSIDE RECORDS SUMMARY | 2024-09-19 09:09 | XMS_ITS | Encounter Summary ---
Author Organization [facility] Address [address] [place] [address] Care Team Providers Care Nurseryman Assistant Name Role Phone Pcp, No Primary Care Provider Unavailabl e Encounter Details Date Type Department Care Team (Latest Contact Info) Description 04/26/2021 Travel Social History Tobacco Use Types Packs/Day [...] 2:00 PM EST Office Visit [facility] [address], [address] [place] [address] Mitra Callaway APRN, CNSiddharth [address] [place] [address] documented as of this encounter Visit Diagnoses Not on filedocumented in this encounter Care Teams Nurseryman Assistant Relationship Specialty Start Date End Date Pcp, No PCP - General 04/06/21 05/22/24 documented as of this encounter
--- OUTSIDE RECORDS SUMMARY | 2024-09-19 09:09 | XMS_ITS | Encounter Summary ---
Author Organization [facility] Address [address] [place] [address] Care Team Providers Care Family Practice Physician Assistant Name Role Phone Pcp, No Primary Care Provider Unavailabl e Encounter Details Date Type Department Care Team (Late st Contact Info) Description 04/23/2021 Orders Only [facility] [address], [address] [place] [address] Viet Jefferson APRN, CNM [address] [place] [address] Social History Tobacco Use Types [...] Description 09/21/2024 2:00 PM EST Office Visit [facility] [address], [address] [place] [address] Mitra Callaway APRN, CNM [address] [place] [address] documented as of this encounter Visit Diagnoses Not on filedocumented in this encounter Care Teams Family Practice Physician Assistant Relationship Specialty Start Date End Date Pcp, No PCP - General 04/06/21 05/22/24 documented as of this encounter
--- OUTSIDE RECORDS SUMMARY | 2024-09-19 09:09 | XMS_ITS | Encounter Summary ---
Author Organization Healthcare Address [address] [place] [address] Care Team Providers Care Assembler Brazer Name Role Phone Pcp, No Primary Care Provider Unavailabl e Reason for Visit * Auth/Cert Specialty Diagnoses / Procedures Referred By Iliana rouse Referred To Contact Diagnoses Encounter for supervision of normal Rita Whitfield MD [address] [address] Phone: tel: fax: [facility] [address] [place] [phone] Phone: tel: fax: Referral ID Status Reason Start Date Expiration Date Visits Re quested Visits Authorized [id number] 1 1 Encounter Details Date Type Department Care Team (Late st Contact Info) Description 04/27/2021 5:01 PM EDT Anesthesia Event [facility] [address] [place] [phone] Ida Fernandez MD [address] [place] [address] Vijay Lizama MD [address] [place] [address] Anesthesia Record Procedure Summary Procedure Name Responsible Anesthesiologist Anesthesia Start Time Anesthesia Stop Time Labor Analgesia Ida Fernandez MD 04/27/21 1701 0 04/27/212050 Events Date Time Event Comment 04/27/2021 170 An Start 171 Epidural Placed 1758 Staff Handoff 2050 An Stop 2136 Epidural Catheter Removed Meds Name Total ePHEDrine injection prefilled syringe 5 mg/mL 10 mg bupivacaine PF (Marcaine) injection 0.25 % 7 mL bupivacaine 0.1% + fentaNYL 2 mcg/mL epi dural PATTERN WHEEL MAKER 27.6 mL * Agents No agents on file. * Blood No blood administrations on file. Lines, Drains, and Airways Type Details Placement Removal Peripheral IV Placement Date: 04/27/21; Placement Time: 101; Catheter Size: 18 G; Orientation: Left, Posterior; Location: Forearm; Site Prep: Alcohol; Inserted by: Enid Hirsch RN; Insertion Attempts: 2; Patient Tolerance: Tolerated well; Removal Date: 04/28/21; Removal Time: 2234; Removal Reason: Per protocol 04/27/21 1015 by Kylah Damon RN 04/28/212234 by Inez Jameson RN Epidural Placement Date: 04/27/21; Placement Time: 1714; Inserted by: Enid Lizama MD; Location: Lumbar (1-5); Patient Tolerance: Tolerated well; Removal Date: 04/27/21; Removal Time: 224404/27/21 171 by Kylah Damon RN 04/27/212244 by Jerrell Corona RN Urethral Catheter Placement Date: 04/27/21; Placement Time: 1809; Inserted by: Rodrigo Damon RN; Type: Double-lumen; Size: 16 Fr.; Balloon Size: 10 mL; Urine Returned: Yes; Removal Date: 04/27/21; Removal Time: 2044; Removal Reason: Per protocol 04/27/211809 by Kylah Damon RN 04/27/212044 by Watson Severino RN documented in this encounter Social History Tobacco Use Types Packs/Day Years Used Date Smoking Tobacco: Never Alcohol Use Standard Drinks/Week Comments Never 0 (1 standard drink = 0.6 oz pur e alcohol) Comments Yes Sex and Gender Information Value [...] Miscellaneous Notes * Anesthesia Postprocedure Evaluation - Benny Acevedo DO - 04/28/2021 3:41 AM EDT Patient: Minda Nog Anesthesia Type: epidural Vitals Value Taken Time BP 130/70 04/28/21340 Temp 98.6f 04/28/21340 Pulse 72 04/28/21340 Resp 18 04/28/21340 SpO2 100 04/28/21340 Anesthesia Post Evaluation Patient location during evaluation: PACU Patient participation: complete - patient participated Level of consciousness: baseline Pain management: adequate (pain score 0-3) Airway patency: natural airway Cardiovascular status: acceptable Respiratory status: acceptable Hydration status: acceptable No complications documented. Cosigned by Margot Byrnes MD at 04/28/2021 7:30 PM EDT Associated attestation - Margot Byrnes MD - 04/28/2021 7:30 PM EDT present * Anesthesia Procedure Notes - Vijay Lizama MD - 04/27/2021 5:57 PM EDT Associated Order(s): Epidural Block Epidural Block Patient location during procedure: OB Start time: 04/27/2021 5:01 PM End time: 04/27/2021 5:24 PM Reason for block: procedure for pain Staffing Performed: Resident Anesthesiologist: Ida Fernandez MD Preanesthetic Checklist Completed: patient identified, IV checked, site marked, risks and benefits discussed, surgical consent, monitors and equipment checked, pre-op evaluation and timeout performed Block Placement Patient position: sitting Prep: ChloraPrep Patient monitoring: standard ASA Approach: midline Location: L3-L4 Needle Needle type: Tuohy Needle gauge: 17 G Needle length: 3.5 in Needle insertion depth: 4.5 cm Catheter size: 19 G Catheter at skin depth: 10 cm Test dose: lidocaine 1.5% with epinephrine 1:200,000 (3 mL - Negative) Additional Notes Catheter aspiration negative for blood or CSF Cosigned by Ida Fernandez MD at 04/27/2021 6:03 PM EDT * Anesthesia Preprocedure Evaluation - Ida Fernandez MD - 04/27/2021 4:43 PM EDT dinkey operator slag Evaluation dinkey operator slag ROS Comment: 26 yo presents @ 40/2 weeks for scheduled induction of labor. Has had one prior w/ FLORINDA w/o issue. Desires labor epidural for this . Patient is now. Associated Diseases Relevant Problems Anesthesia (within normal limits) Prior w/ FLORINDA Cardio (within normal limits) Endo (within normal limits) GI (within normal limits) /Renal (within normal limits) Neuro/Psych (within normal limits) Pulmonary (within normal limits) Clinical information reviewed: Physical Exam Airway Mallampati: I Mouth opening: [...] 2 Anesthesia technique(s) discussed with the patient/family: Epidural, general and spinal Anesthesia plan agreed upon was: epidural Anesthetic plan and risks discussed with patient. Use of blood products discussed with patient who consented to blood products. Plan discussed with attending. Additional Equipment Requests documented in this encounter Plan of Treatment Upcoming Encounters Date Type Department Care Team (Late st Contact Info) Description 09/21/2024 2:00 PM EST Office [facility] [address], [address] [place] [address] Mitra Callaway, COURT RECORDING MONITOR, CNM [address] [place] [address] documented as of this encounter Procedures Procedure Name Priority Date/Time Associated Diagnosis Comments PB ANESTHESIA PLACEHOLDER Routine 04/27/2021 5:01 PM EDT documented in this encounter Results * PB ANESTHESIA PLACEHOLDER (04/27/2021 5:01 PM EDT) Narrative Ida Fernandez MD - 04/27/2021 5:01 PM EDT Vijay Lizama MD ? 04/27/2021 ??5:58 PM Epidural Block Patient location during procedure: OB Start time: 04/27/2021 5:01 PM End time: 04/27/2021 5:24 PM Reason for block: procedure for pain Staffing Performed: Resident Anesthesiologist: Ida Fernandez MD Preanesthetic Checklist Completed: patient identified, IV checked, site marked, risks and benefits discussed, surgical consent, monitors and equipment checked, pre-op evaluation and timeout performed Block Placement Patient position: sitting Prep: ChloraPrep Patient monitoring: standard ASA Approach: midline Location: L3-L4 Needle Needle type: Tuohy Needle gauge: 17 G Needle length: 3.5 in Needle insertion depth: 4.5 cm Catheter size: 19 G Catheter at skin depth: 10 cm Test dose: lidocaine 1.5% with epinephrine 1:200,000 (3 mL - Negative) Additional Notes Catheter aspiration negative for blood or CSF us Ida Fernandez MD ANESTHESIA ORDERABLES Final Result documented in this encounter Visit Diagnoses Not on filedocumented in this encounter Administered Medications Inactive Administered Medications - up to 3 most recent administrations Medication Order MAR Action Action Date Dose Rate Site bupivacaine PF (Marcaine) 0.25 % injection Epidural, As needed, Starting on Hilda 04/27/21 at 1723, Until Hilda 04/27/21 at 2115, Routine, Anesthesia Intraprocedure Given 04/27/2021 5:23 PM EDT 7 mL ePHEDrine Sulfate prefilled syringe Intravenous, As needed, Starting on Hilda 04/27/21 at 1710, Until Hilda 04/27/21 at 2115, Routine, Anesthesia Intraprocedure Given 04/27/2021 5:10 PM EDT 10 mg fentanyl 2 mcg/ml + bupivacaine 1 mg/ml epidural BOLUS Epidural, Continuous PRN, Starting on Hilda 04/27/21 at 1724, Until Hilda 04/27/21 at 2115, Routine, Anesthesia Intraprocedure New Bag 04/27/2021 5:24 PM EDT 8 mL/hr 8 mL/hr documented in this encounter Care Teams Assembler Brazer Relationship Specialty Start Date End Date Pcp, No PCP - General 04/06/21 05/22/24 documented as of this encounter
--- OUTSIDE RECORDS SUMMARY | 2024-09-19 09:09 | XMS_ITS | Encounter Summary ---
Author Organization [facility] Address [address] [place] [address] Care Team Providers Care Fugitive Investigator Name Role Phone Pcp, No Primary Care Provider Unavailabl e Encounter Details Date Type Department Care Team (Late st Contact Info) Description 06/23/2021 9:30 AM EDT Office Visit [facility] [address], [address] [place] [address] Macarena Palumbo, AD COMPOSITOR, CNM [address] [place] [address] Mastitis (Primary Dx) Social History Tobacco Use Types [...] Sign Reading Time Taken Comments Blood Pressure 124/74 06/23/2021 10:42 AM EDT Pulse 68 06/23/2021 10:42 AM EDT Temperature 37 ??C (98.6 ??F) 06/23/2021 10:42 AM EDT Respiratory Rate - - Oxygen Saturation - - Inhaled Oxygen Concentration - - Weight 61 kg (134 lb 7.7 oz) 06/23/2021 10:42 AM EDT Height 162.6 cm (5' 4 ) 06/23/2021 10:42 AM EDT Body Mass Index 23.08 06/23/2021 10:42 AM EDT documented in this encounter Miscellaneous Notes * Progress Notes - Kelly Benz MA - 06/23/2021 9:30 AM EDT -Work in for Mastitis -Red streaking, tender, warm to the touch, sweating -S/S started this morning on both breasts * Progress Notes - Macarena Palumbo APRN, CNM - 06/23/2021 9:30 AM EDT Images from the original note were not included. Gynecology Progress Note Subjective HPI Pt presents with concern for mastitis. Report red, streaking started on breasts this morning. Breasts are warm to the touch and tender. States she woke up drenched in sweat this morning. States breasts are not as red now as they were this morning. Reports pain with let down; no pain with nursing. Pt has consultation appt for BTL scheduled in July. Review of Systems Constitutional: Positive for fever. All other systems reviewed and are negative. Objective Physical Exam Constitutional: Appearance: Normal appearance. Pulmonary: Effort: Pulmonary effort is normal. Chest: Comments: Faint pink in area on left breast noted above. Right breast normal. No signs of abscess. Neurological: Mental Status: She is alert. Skin: General: Skin is warm. Psychiatric: Mood and Affect: Mood normal. Behavior: Behavior normal. Labs: cultures obtained from right and left breast Assessment/Plan Assess/Plan SmartLinks: Diagnoses and all orders for this visit: Mastitis - dicloxacillin (Dynapen) 500 MG capsule; Take 1 capsule (500 mg total) by mouth 4 (four) times a day for 10 days. -discussed can monitor symptoms throughout the afternoon; if sx worsen advised to start abx. If no further redness, no fever, and pain resolves can continue to monitor and not take abx. If starts abx, advised to complete full course. Encounter Time: A total of 10-19 minutes was spent on this visit reviewing the patient's history, counseling the patient, and documenting this visit. (Est [id number]) documented in this encounter Plan of Treatment Upcoming Encounters Date Type Department Care Team (Late st Contact Info) Description 09/21/2024 2:00 PM EST Office Visit [facility] [address], [address] [place] [address] Mitra Callaway APRN, CNM [address] [place] [address] documented as of this encounter Procedures Procedure Name Priority Date/Time Associated Diagnosis Comments ROUTINE CULTURE AND GRAM STAIN Routine 06/23/2021 11:10 AM EDT Mastitis ROUTINE CULTURE AND GRAM STAIN Routine 06/23/2021 11:10 AM EDT Mastitis documented in this encounter Results * (ABNORMAL) Routine Culture and Gram Stain (06/23/2021 11:10 AM EDT) Culture Moderate Growth 2:37 PM EDT [facility] Culture Staphylococcus epidermidis(A) ABBE 06/25/2021 2:37 PM EDT [facility] Comment:The organism value f or this result has been updated. These results have been appended to the previously preliminary verified report. Gram Stain Result No polymorphonuclear leukocytes seen 06/25/2021 2:37 PM EDT [facility] Gram Stain Result No organisms seen 06/25/2021 2:37 PM EDT [facility] Swab Right breast structure / Unknown Non-blood Collection / Unknown 06/23/2021 11:10 AM EDT 06/23/2021 1:42 PM EDT Narrative Organism Antibiotic Method Susceptibility Staphylococcus epidermidis Clindamycin ABBE Resistant Comment: This isolate is presumed to be resistant to clindamycin based on detection of inducible clindamycin resistance. Previously prelim verified as Resistant (<=0.5 ug/ml) on 06/25/2021 at 0049 EDT. Staphylococcus epidermidis Daptomycin ABBE <=1 ug/ml: Susceptible Staphylococcus epidermidis Erythromycin ABBE >4 ug/ml: Resistant Staphylococcus epidermidis Gentamicin ABBE <=1 ug/ml: Susceptible Staphylococcus epidermidis Linezolid ABBE 2 ug/ml: Susceptible Staphylococcus epidermidis Minocycline ABBE <=1 ug/ml: Susceptible Staphylococcus epidermidis Oxacillin ABBE 1 ug/ml: Resistant Staphylococcus epidermidis Penicillin G ABBE >1 ug/ml: Resistant Staphylococcus epidermidis Tetracycline ABBE <=0.5 ug/ml: Susceptible Staphylococcus epidermidis Vancomycin ABBE 2 ug/ml: Susceptible Macarena Palumbo APRN, CNM LAB MICROBIOLOGY - GEN ERAL ORDERABLES Final Result [facility] [address] [place] [address] * (ABNORMAL) Routine Culture and Gram Stain (06/23/2021 11:10 AM EDT) [facility] Signature Culture Light Growth 06/25/2021 2:19 PM EDT [facility] Culture Staphylococcus epidermidis(A) ABBE 06/25/2021 2:19 PM EDT [facility] Comment: This isolate has been identified using the FDA Approved [employer] [place] System The organism value for this result has been updated. These results have been appended to the previously preliminary verified report. Gram Stain Result No polymorphonuclear leukocytes seen 06/25/2021 2:19 PM EDT [facility] Gram Stain Result No organisms seen 06/25/2021 2:19 PM EDT [facility] Swab Left breast structure / Unknown Non-blood Collection / Unknown 06/23/2021 11:10 AM EDT 06/23/2021 1:41 PM EDT Narrative Organism Antibiotic Method Susceptibility Staphylococcus epidermidis Clindamycin ABBE Resistant Comment:This isolate is presumed to be resistant to clindamycin based on detection of inducible clindamycin resistance. Staphylococcus epidermidis Daptomycin ABBE <=1 ug/ml: Susceptible Staphylococcus epidermidis Erythromycin ABBE >4 ug/ml: Resistant Staphylococcus epidermidis Gentamicin ABBE <=1 ug/ml: Susceptible Staphylococcus epidermidis Linezolid ABBE <=1 ug/ml: Susceptible Staphylococcus epidermidis Minocycline ABBE <=1 ug/ml: Susceptible Staphylococcus epidermidis Oxacillin ABBE <=0.25 ug/ml: Susceptible Staphylococcus epidermidis Penicillin G ABBE >1 ug/ml: Resistant Staphylococcus epidermidis Tetracycline ABBE <=0.5 ug/ml: Susceptible Staphylococcus epidermidis Vancomycin ABBE 2 ug/ml: Susceptible Macarena Palumbo APRN, CNM LAB MICROBIOLOGY - GEN ERAL ORDERABLES Final Result [facility] [address] [place] [id number] documented in this encounter Visit Diagnoses Diagnosis Mastitis- Primary Inflammatory disease of breast documented in this encounter Care Teams Fugitive Investigator Relationship Specialty Start Date End Date Pcp, No PCP - General 04/06/21 05/22/24 documented as of this encounter
--- OUTSIDE RECORDS SUMMARY | 2024-09-19 09:09 | XMS_ITS | Encounter Summary ---
Author Organization Healthcare Address [address] [place] [address] Care Team Providers Care Ceo [place] [employer] Name Role Phone Unavailable Primary Care Provider Unavailabl e Encounter Details Date Type Department Care Team (Late st Contact Info) Description 10/10/2017 [facility] Vitals Encounter [facility] OUTPATIENT CONVERSIONS [address] [place] [address] ProviderElvis MD [address] [place], [place] [id number] Social History Tobacco Use Types Packs/Day Years [...] - - Weight 56.4 kg (124 lb 4 oz) 10/10/2017 1:29 PM EST Height 162.6 cm (5' 4 ) 10/10/2017 1:29 PM EST Body Mass Index 21.33 10/10/2017 1:29 PM EST documented in this encounter Plan of Treatment Upcoming Encounters Date Type Department Care Team (Late st Contact Info) Description 09/21/2024 2:00 PM EST Office Visit [facility] [address], [address] [place] [address] Mitra Callaway APRN, CNM [address] [place] [address] documented as of this encounter Visit Diagnoses Not on filedocumented in this encounter
--- OUTSIDE RECORDS SUMMARY | 2024-09-19 09:09 | XMS_ITS | Encounter Summary ---
Author Organization Healthcare Address [address] [place] [address] Care Team Providers Care Cupola Repairer Name Role Phone Unavailable Primary Care Provider Unavailabl e Encounter Details Date Type Department Care Team (Late st Contact Info) Description 08/09/2017 [facility] AEHR Vitals Encounter [facility] OUTPATIENT CONVERSIONS [address] [place] [address] ProviderElvis MD [address] [place], [place] [id number] Social History Tobacco Use Types Packs/Day Years [...] - Inhaled Oxygen Concentration - - Weight 68.2 kg (150 lb 6 oz) 08/09/2017 9:11 AM EDT Height 162.6 cm (5' 4 ) 08/09/2017 9:11 AM EDT Body Mass Index 25.81 08/09/2017 9:11 AM EDT documented in this encounter Plan of Treatment Upcoming Encounters Date Type Department Care Team (Late st Contact Info) Description 09/21/2024 2:00 PM EST Office Visit [facility] [address], [address] [place] [address] Mitra Callaway APRN, CNM [address] [place] [address] documented as of this encounter Visit Diagnoses Not on filedocumented in this encounter
--- OUTSIDE RECORDS SUMMARY | 2024-09-19 09:09 | XMS_ITS | Encounter Summary ---
Author Organization Healthcare Address [address] [place] [address] Care Team Providers Care Senior Chemist Name Role Phone Pcp, No Primary Care Provider Unavailabl e Encounter Details Date Type Department Care Team (Latest Contact Info) Description 12/06/2021 Travel Social History Tobacco Use Types Packs/Day [...] PM EST documented as of this encounter Plan of Treatment Upcoming Encounters Date Type Department Care Team (Late st Contact Info) Description 09/21/2024 2:00 PM EST Office Visit [facility] [address], [address] [place] [address] Mitra Callaway APRN, COMPA [address] [place] [address] documented as of this encounter Visit Diagnoses Not on filedocumented in this encounter Care Teams Senior Chemist Relationship Specialty Start Date End Date Pcp, No PCP - General 04/06/21 05/22/24 documented as of this encounter
--- OUTSIDE RECORDS SUMMARY | 2024-09-19 09:09 | XMS_ITS | Encounter Summary ---
Author Organization Healthcare Address [address] [place] [address] Care Team Providers Care Hospice Patient Care Secretary Name Role Phone Pcp, No Primary Care Provider Unavailabl e Encounter Details Date Type Department Care Team (Latest Contact Info) Description 06/23/2021 Travel Social History Tobacco Use Types Packs/Day [...] 2:00 PM EST Office Visit [facility] [address], [address] [place] [address] Mitra Callaway APRN, COMPA [address] [place] [address] documented as of this encounter Visit Diagnoses Not on filedocumented in this encounter Care Teams Hospice Patient Care Secretary Relationship Specialty Start Date End Date Pcp, No PCP - General 04/06/21 05/22/24 documented as of this encounter
--- OUTSIDE RECORDS SUMMARY | 2024-09-19 09:09 | XMS_ITS | Encounter Summary ---
Author Organization Healthcare Address [address] [place] [address] Care Team Providers Care Sheet Metal Engineer Name Role Phone Pcp, No Primary Care Provider Unavailabl e Reason for Visit * Reason Comments Med Refill Encounter Details Date Type Department Care Team (Late Contact Info) Description 06/23/2021 Refill [facility] [address], [address] [place] [address] Mitra Callaway APRN, CNM [address] [place] [address] Social History Tobacco Use Types [...] 2:00 PM EST Office Visit [facility] [address], [address] [place] [address] Mitra Callaway APRN, CNM [address] [place] [address] documented as of this encounter Visit Diagnoses Not on filedocumented in this encounter Care Teams Sheet Metal Engineer Relationship Specialty Start Date End Date Pcp, No PCP - General 04/06/21 05/22/24 documented as of this encounter
--- OUTSIDE RECORDS SUMMARY | 2024-09-19 09:09 | XMS_ITS | Encounter Summary ---
Author Organization Healthcare Address [address] [place] [address] Care Team Providers Care Core Cutter Name Role Phone Pcp, No Primary Care Provider Unavailabl e Encounter Details Date Type Department Care Team (Late Contact Info) Description 07/18/2021 Orders Only [facility] [address], [address] [place] [address] Itzel Davis Social History Tobacco Use Types Packs/Day Years [...] 2:00 PM EST Office Visit [facility] [address], [address] [place] [address] Mitra Callaway, DANNIELLE, CNM [address] [place] [address] documented as of this encounter Visit Diagnoses Not on filedocumented in this encounter Care Teams Core Cutter Relationship Specialty Start Date End Date Pcp, Meghna PCP - General 04/06/21 05/22/24 documented as of this encounter
--- OUTSIDE RECORDS SUMMARY | 2024-09-19 09:09 | XMS_ITS | Encounter Summary ---
Author Organization [facility] Address [address] [place] [address] Care Team Providers Care Mining Helper Name Role Phone Pcp, No Primary Care Provider Unavailabl e Encounter Details Date Type Department Care Team (Latest Contact Info) Description 04/26/2021 1:00 PM EDT Routine [facility] [address], [address] [place] [address] Keerthi Avila, TIRE SETTER, CNM [address] [place] [address] 40 weeks gestation of (Primary Dx) Social History Tobacco Use Types [...] Sign Reading Time Taken Comments Blood Pressure 134/79 04/26/2021 1:13 PM EDT Pulse - - Temperature - - Respiratory Rate - - Oxygen Saturation - - Inhaled Oxygen Concentration - - Weight 72.9 kg (160 lb 11.5 oz) 04/26/2021 1:13 PM EDT Height - - Body Mass Index 27.59 03/30/2021 9:17 AM EDT documented in this encounter Miscellaneous Notes * Progress Notes - Keerthi Avila APRN, CNM - 04/26/2021 1:00 PM EDT 40w1d here for COLE. Pt is s/p antibiotics for chlamydia treatment. Reports discharge has resolved completely, now normal leukorrhea. Has not had SIC since treatment. Pt strongly desires IOL. Discussed recommendations limited regarding IOL following treatment in 3T, but given 1 week s/p treatment will proceed with IOL. Scheduled for 9am tomorrow morning, HM aware. Desires CE: /-2, membrane sweep per pt request. COVID swab today. documented in this encounter Plan of Treatment Upcoming Encounters Date Type Department Care Team (Late st Contact Info) Description 09/21/2024 2:00 PM EST Office Visit [facility] [address], [address] [place] [address] Mitra Callaway APRN, CNM [address] [place] [address] documented as of this encounter Procedures Procedure Name Priority Date/Time Associated Diagnosis Comments SARS COV-2/COVID-19 BY PCR Routine 04/26/2021 8:24 PM EDT 40 weeks gestation of documented in this encounter Results * SARS CoV-2/COVID-19 by PCR (04/26/2021 8:24 PM EDT) SARS CoV-2/COVID-1 9 RNA PCR Result Not Detected Not Detected 04/26/2021 8:24 PM EDT [facility] Swab Nasopharyngeal structure / Unknown 04/26/2021 5:55 PM EDT Narrative [facility] - 04/26/2021 8:24 PM EDT This assay is for in vitro diagnostic use under FDA emergency use authorization only. Negative results do not preclude infection with the SARS CoV-2 virus and should not be the sole basis of a patient treatment/management or public health decision. Follow up testing should be performed according to the current CDC recommendations. This test was performed using the TaqPath COVID-19 assay, an [id number] method. The limit of detection (LoD) for [...] clinical signs and symptoms consistent with COVID-19. Phuong Calixto APRN, CNM LAB MICROBIOLOGY - G ENERAL ORDERABLES Final Result [facility] [address] [place] [address] documented in this encounter Visit Diagnoses Diagnosis 40 weeks gestation of - Primary documented in this encounter Care Teams Mining Helper Relationship Specialty Start Date End Date Pcp, No PCP - General 04/06/21 05/22/24 documented as of this encounter
--- OUTSIDE RECORDS SUMMARY | 2024-09-19 09:09 | XMS_ITS | Encounter Summary ---
Author Organization [facility] Address [address] [place] [address] Care Team Providers Care Sas Bi Developer Name Role Phone Pcp, No Primary Care Provider Unavailabl e Encounter Details Date Type Department Care Team (Late Contact Info) Description 05/17/2021 Orders Only [facility] [address], [address] [place] [address] Keerthi Avila, DANNIELLE, CNM [address] [place] [address] Social History Tobacco Use Types [...] 2:00 PM EST Office Visit [facility] [address], [address] [place] [address] Mitra Callaway, DANNIELLE, CNM [address] [place] [address] documented as of this encounter Visit Diagnoses Not on filedocumented in this encounter Care Teams Sas Bi Developer Relationship Specialty Start Date End Date Pcp, No PCP - General 04/06/21 05/22/24 documented as of this encounter
--- OUTSIDE RECORDS SUMMARY | 2024-09-19 09:09 | XMS_ITS | Encounter Summary ---
Author Organization Healthcare Address [address] [place] [address] Care Team Providers Care Tentering Machine Feeder Name Role Phone Pcp, No Primary Care Provider Unavailabl e Encounter Details Date Type Department Care Team (Latest Contact Info) Description 06/13/2021 Travel Social History Tobacco Use Types Packs/Day [...] have Coronavirus / COVID-19? No / Unsure 06/13/2021 2:14 PM EDT documented as of this encounter Plan of Treatment Upcoming Encounters Date Type Department Care Team (Late st Contact Info) Description 09/21/2024 2:00 PM EST Office Visit [facility] [address], [address] [place] [address] Mitra Callaway APRN, COMPA [address] [place] [address] documented as of this encounter Visit Diagnoses Not on filedocumented in this encounter Care Teams Tentering Machine Feeder Relationship Specialty Start Date End Date Pcp, No PCP - General 04/06/21 05/22/24 documented as of this encounter
--- OUTSIDE RECORDS SUMMARY | 2024-09-19 09:09 | XMS_ITS | Encounter Summary ---
Author Organization [facility] Address [address] [place] [address] Care Team Providers Care Nuclear Security Officer Name Role Phone Pcp, No Primary Care Provider Unavailabl e Reason for Visit * Reason Comments Follow-up 6wk PP Annual Exam Encounter Details Date Type Department Care Team (Late st Contact Info) Description 06/13/2021 2:15 PM EDT Office Visit [facility] [address], [address] [place] [address] Mitra Callaway APRN, CN [address] [place] [address] Pap smear, as part of routine gynecological examination (Primary Dx); Routine follow-up Social History Tobacco Use Types Packs/Day Years [...] Sign Reading Time Taken Comments Blood Pressure 115/79 06/13/2021 2:35 PM EDT Pulse 76 06/13/2021 2:35 PM EDT Temperature - - Respiratory Rate - - Oxygen Saturation - - Inhaled Oxygen Concentration - - Weight 61.3 kg (135 lb 2.3 oz) 06/13/2021 2:35 P M EDT Height - - Body Mass Index 23.2 04/27/2021 10:24 AM EDT documented in this encounter Miscellaneous Notes * Progress Notes - Gabriela Thompson MA - 06/13/2021 2:15 PM EDT 6wk PP and annual And labwork Lochia: none * Progress Notes - Mitra Callaway APRN, COMPA - 06/13/2021 2:15 PM EDT care and Annual exam Note Subjective: Chief complaint: 6wk visit and annual exam HPI Minda N Jeni is a 26 y.o. at 6wks s/p of viable male infant. Reports breast feeding is going well. Lochia has stopped. Mood is stable, getting adequate sleep and has support at home. Plans BTL for control, has consult in July 2021. Desires MiniPill in the meantime. Otherwise, reports feeling fine with her physical/emotional healthy. No other concerns today. COVID vax: declines currently. Desires MDL for peace of mind. ROS See HPI Current Outpatient Medications Medication Instructions ??? MV-Min-Fe Fum-FA-DHA ( Multi +DHA) 27-0.8-200 MG capsule TAKE 1 CAPSULE Daily Objective: Past 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: Diagnosis Date ??? Depression ??? Encounter for routine follow-up 6 weeks follow-up ??? Irregular menstruation, unspecified Irregular periods ??? Other specified anxiety disorders Depression with anxiety ??? Personal history of other diseases of the nervous system and sense organs History of migraine ??? Personal history of other infectious and parasitic diseases History of varicella ??? Personal history of other specified conditions History of headache ??? Personal history of other specified conditions History of mastitis ??? Personal history of urinary (tract) infections History of urinary tract infection Family History Problem Relation Name Age of Onset ??? Autism Other ??? Thyroid cancer Father's Sister ??? Thyroid disease Paternal Grandmother ??? Thyroid disease Paternal Great-Grandmother ??? Melanoma Paternal Grandfather Visit Vitals BP 115/79 Pulse 76 Wt 61.3 kg (135 lb 2.3 oz) BMI 23.20 kg/m?? Physical Exam Vitals reviewed. Constitutional: Appearance: Normal appearance. HENT: Head: Normocephalic. Neck: Thyroid: No thyroid mass, thyromegaly or thyroid tenderness. Cardiovascular: Rate and Rhythm: Normal rate and regular rhythm. Heart sounds: Normal heart sounds. Pulmonary: Effort: Pulmonary effort is normal. Breath sounds: Normal breath sounds. Chest: Comments: Deferred while lactating Abdominal: General: Abdomen is flat. Palpations: Abdomen is soft. Tenderness: There is no abdominal tenderness. Genitourinary: General: Normal vulva. Vagina: Normal. Cervix: Normal. Musculoskeletal: General: Normal range of motion. Skin: General: Skin is warm and dry. Capillary Refill: Capillary refill takes less than 2 seconds. Neurological: Mental Status: She is alert and oriented to person, place, and time. Psychiatric: Mood and Affect: Mood normal. Behavior: Behavior normal. Thought Content: Thought content normal. Judgment: Judgment normal. Assessment/Plan: 6wk Care -Breast feeding: going well -Lochia: stopped -Mood: stable -PPBC: MiniPill until BTL (Has consult with [facility] in Jul 2021) Annual exam -Pap, physical exam and wellness panel today -MDL collected, will treat based on results -Reviewed family hx, warning signs and screening guideline for Breast and Colon Cancer -Advised mammogram @ age 40 and colonoscopy @ age 50 -Discussed COVID vax is recommended and considered safe in by CDC RTC: PRN or annual documented in this encounter Plan of Treatment Upcoming Encounters Date Type Department Care Team (Late st Contact Info) Description 09/21/2024 2:00 PM EST Office Visit [facility] [address], [address] [place] [address] Mitra Callaway APRN, COMPA [address] [place] [address] documented as of this encounter Procedures Procedure Name Priority Date/Time Associated Diagnosis Comments VITAMIN D 25 HYDROXY Routine 06/13/2021 8:34 PM EDT Pap smear, as part of routine gynecological examination HEMOGLOBIN A1C Routine 06/13/2021 7:54 PM EDT Pap smear, as part of routine gynecological examination TSH Routine 06/13/2021 7:47 PM EDT Pap smear, as part of routine gynecological examination LIPID PROFILE, PLASMA Routine 06/13/2021 7:47 PM EDT Pap smear, as part of routine gynecological examination CBC W/O DIFFERENTIAL Routine 06/13/2021 7:29 PM EDT Pap smear, as part of routine gynecological examination PAP TEST - CYTOLOGY Routine 06/13/2021 2 :37 PM EDT Pap smear, as part of routine gynecological examination documented in this encounter Results * Vitamin D 25 Hydroxy (06/13/2021 8:34 PM EDT) Vitamin D 25 Hydroxy 25.7 20.0 - 80.0 ng/mL 06/13/2021 8:34 PM EDT [facility] Comment: Vitamin D, 25-Hydroxy reference range, age 18 years and up: Deficiency: ? <12 ng/mL Insufficiency: ?12 to 19 ng/mL Sufficiency: ?20 to 80 ng/mL Possible toxicity: ??>100 ng/mL Blood Venous blood specimen / Unknown 06/13/2021 7:03 PM EDT us Mitra Callaway APRN, COMPA LAB BLOOD ORDERABLES Final Result [facility] [address] [place] [address] * Hemoglobin A1c (06/13/2021 7:54 PM EDT) Hemoglobin A1c 5.2 <5.7 % 06/13/2021 7:54 PM EDT [facility] Blood Venous blood specimen / Unknown 06/13/2021 7:03 PM EDT Narrative [facility] - 06/13/2021 7:54 PM EDT HA1C Interpretive Data: Diagnosis of Diabetes: Diabetic > or = 6.5% Pre-diabetic 5.7 to 6.4% Non-diabetic < or = 5.6% Glycemic Targets for Type I and Type II Diabetics: Non- Adults <7.0% Adults <6.0% Children and Adolescents <7.5% Source: ??[place] Diabetes Association. Standards of medical care in diabetes,2017. Diabetes Care.2017:40 (suppl 1):S1-S135. HbA1c assay performed by an ion-exchange chromatography method that is certified traceable to the DCCT. Mitra Callaway APRN, COMPA LAB BLOOD ORDERABLES Final Result [facility] [address] [place] [address] * Thyroid Stimulating Hormone, Plasma (06/13/2021 7:47 PM EDT) Thyroid Stimulating Hormone, Plasma 0.78 0.40 - 4.20 uIU/mL 06/13/2021 7:47 PM EDT [facility] Blood Venous blood specimen / Unknown 06/13/2021 7:03 PM EDT Narrative [facility] - 06/13/2021 7:47 PM EDT Trimester Specific Ranges ?TSH (??IU/mL) 1st Trimester ??0.1 ??- 3.0 2nd Trimester ??0.19 - 4.06 3rd Trimester ??0.3 ??- 3.7 Mitra Callaway APRN, CLAUDIA LAB BLOOD ORDERABLES Final Result [facility] [address] [place] [address] * (ABNORMAL) Lipid Profile, Plasma (06/13/2021 7:47 PM EDT) [facility] Signature Cholesterol, Plasma 193 <200 mg/dL 06/13/2021 7:47 PM EDT [facility] Comment: Cholesterol Reference Range (age >17 years): Desirable? <200 mg/dL Borderline? 200 to 239 mg/dL Undesirable? >239 mg/dL HDL 59 >=50 mg/dL 06/13/2021 7:47 PM EDT [facility] Comment: HDL Cholesterol Reference Ranges (age >17 years): Female, acceptable? > or = 50 mg/dL Male, acceptable? > or = 40 mg/dL Triglycerides, Plasma 104 <150 mg/dL 06/13/2021 7:47 PM EDT [facility] Comment: Triglyceride Reference Range (age >17 years): Desirable:?? <150 mg/dL Borderline high:?? 150 to 199 mg/dL High:?? 200 to 499 mg/dL Very high:?? >499 mg/dL Increased risk of pancreatitis:?? >1000 mg/dL Cholesterol/HDL Ratio 3 06/13/2021 7:47 PM EDT [facility] LDL, Calculated 113.2(H) <100 mg/dL 06/13/2021 7:47 PM EDT [facility] Comment: LDL Cholesterol Reference Range (age >17 years): Optimal: ??<100 mg/dL Near or above optional: 100 - 129 mg/dL Borderline high: 130 - 159 mg/dL High: 160 - 189 mg/dL Very high: >189 mg/dL LDL Cholesterol Reference Range (age <18 years): Desirable: ? <110 mg/dL Borderline: ?110 - 129 mg/dL Undesirable: ?? >130 mg/dL Blood Venous blood specimen / Unknown 06/13/2021 7:03 PM EDT Mitra Callaway APRN, CNM LAB BLOOD ORDERABLES Final Result [facility] [address] [place] [address] * CBC W/O Differential (06/13/2021 7:29 PM EDT) WBC Count 6.37 3.70 - 10.30 10*3/uL LAB HEMATOLOGY METHOD 06/13/2021 7:29 PM EDT [facility] RBC Count 4.88 3.90 - 5.20 10*6/uL LAB HEMATOLOGY METHOD 06/13/2021 7:29 PM EDT [facility] HGB 13.6 11.2 - 15.7 g/dL LAB HEMATOLOGY METHOD 06/13/2021 7:29 PM EDT [facility] HCT 41.8 34.0 - 45.0 % LAB HEMATOLOGY METHOD 06/13/2021 7:29 PM EDT [facility] Platelet Count 269 155 - 369 10*3/uL LAB HEMATOLOGY METHOD 06/13/2021 7:29 PM EDT [facility] MCV 86 79 - 98 fL LAB HEMATOLOGY METHOD 06/13/2021 7:29 PM EDT [facility] MCH 27.9 26.0 - 32.0 pg LAB HEMATOLOGY METHOD 06/13/2021 7:29 PM EDT [facility] MCHC 32.5 30.7 - 35.5 g/dL LAB HEMATOLOGY METHOD 06/13/2021 7:29 PM EDT [facility] RDW 13.7 11.5 - 14.5 % LAB HEMATOLOGY METHOD 06/13/2021 7:29 PM EDT [facility] MPV 9.6 8.8 - 12.5 fL LAB HEMATOLOGY METHOD 06/13/2021 7:29 PM EDT [facility] nRBC 0.0 <=0.0 per 100 WBCs LAB HEMATOLOGY METHOD 06/13/2021 7:29 PM EDT [facility] Blood Venous blood specimen / Unknown 06/13/2021 7:03 PM EDT Mitra Callaway APRN, CNM LAB BLOOD ORDERABLES Final Result [facility] [address] [place] [address] * Pap Test (06/13/2021 2:37 PM EDT) Case Report Cytology ?Case: [id number] ? Authorizing Provider: ??Mitra Callaway CNM ? Collected: ? 06/13/2021 1437 ? Ordering Location: ? [facility] Received: ?06/14/2021 0951 ? First Screen: ?Cristela Phillips, CT ? Rescreen: ?SHIRA Rashid ? Specimen: ?ThinPrep Pap Test, Liquid-Based Cervical/Vaginal, CERVICAL/VAGINAL ? 06/16/2021 3:59 PM EDT [facility] Interpretation NEGATIVE FOR INTRAEPITHELIAL LESION OR MALIGNANCY 06/16/2021 3:59 PM EDT [facility] Other Findings Inflammatory change. 06/16/2021 3:59 PM EDT [facility] Specimen Adequacy Satisfactory for evaluation; endocervical/ag sformation zone component present. Slide imaged by the ThinPrep Imaging system and selected 22 petit reviewed then full manual screening. 06/16/2021 3:59 PM EDT [facility] Cervical cytology is a screening test [...] results is suggested (please call Microbiology at [phone] for results). 06/16/2021 3:59 PM EDT [facility] Menstrual Status Post- 021 3:59 PM EDT [facility] Contraceptive History Not Applicable 06/16/2021 3:59 PM EDT [facility] Last Menstrual Period 06/06/2020 06/16/2021 3:59 PM EDT [facility] Comment: Screening Type Routine Screen 2020 3:59 PM EDT [facility] High Risk? No 06/16/2021 3:59 PM EDT [facility] HPV Testing Requested? Request HPV testing if ASCUS or LSIL. 06/16/2021 3:59 PM EDT [facility] Previous Cancer History No 06/16/2021 3:59 PM EDT [facility] Swab Vaginal and cervical cytologic material / Unknown 06/13/2021 2:37 PM EDT 06/14/2021 9:51 AM EDT Mitra Callaway APRN, CNSiddharth LAB CYTOLOGY ORDERAB LES Final Result [facility] [address] [place] [address] documented in this encounter Visit Diagnoses Diagnosis Pap smear, as part of routine gynecological examination- Primary Screening for malignant neoplasm of the cervix Routine follow-up documented in this encounter Care Teams Nuclear Security Officer Relationship Specialty Start Date End Date Pcp, No PCP - General 04/06/21 05/22/24 documented as of this encounter
--- OUTSIDE RECORDS SUMMARY | 2024-09-19 09:09 | XMS_ITS | Encounter Summary ---
Author Organization [facility] Address [address] [place] [address] Care Team Providers Care Processor Solid Propellant Name Role Phone Pcp, No Primary Care Provider Unavailabl e Reason for Visit * Auth/Cert Specialty Diagnoses / Procedures Referred By Iliana rouse Referred To Contact Diagnoses Encounter for supervision of normal Rita Whitfield MD [address] [address] Phone: tel: fax: [facility] [address] [place] [phone] Phone: tel: fax: Referral ID Status Reason Start Date Expiration Date Visits Re quested Visits Authorized [id number] 1 1 Encounter Details Date Type Department Care Team (Late st Contact Info) Description 04/28/2021 1:04 AM EDT Anesthesia Event [facility] [address] [place] [id number] Ida Fernandez MD [address] [place] [address] Vijay Lizama MD [address] [place] [address] Anesthesia Record Procedure Summary Procedure Name Responsible Anesthesiologist Anesthesia Start Time Anesthesia Stop Time Labor Consult Events No events on file. Meds * Agents No agents on file. * Blood No blood administrations on file. Lines, Drains, and Airways Type Details Placement Removal Wound 01/24/22; 0759; N; Y es; Incision; Abdomen 01/24/22 0759 by Corine Red RN documented in this encounter Social History [...] of this encounter Miscellaneous Notes * Anesthesia Preprocedure Evaluation - Ida Fernandez MD - 04/27/2021 1:28 PM EDT vegetable packer Evaluation vegetable packer ROS Comment: 26 yo presents @ 40/2 [...] Pulmonary (within normal limits) Clinical information reviewed: Allergies Physical Exam Airway Mallampati: I Mouth opening: [...] 2:00 PM EST Office Visit [facility] [address] [place] [address] Mitra Callaway APRN, CNM [address] [place] [address] documented as of this encounter Visit Diagnoses Not on filedocumented in this encounter Care Teams Processor Solid Propellant Relationship Specialty Start Date End Date Pcp, No PCP - General 04/06/21 05/22/24 documented as of this encounter
--- OUTSIDE RECORDS SUMMARY | 2024-09-19 09:09 | XMS_ITS | Encounter Summary ---
Author Organization [facility] Address [address] [place] [address] Care Team Providers Care Custom Shoe Designer And Maker Name Role Phone Pcp, No Primary Care Provider Unavailabl e Encounter Details Date Type Department Care Team (Late Contact Info) Description 06/23/2021 Orders Only [facility] [address], [address] [place] [address] Kelly Montague [facility] [address] [place] [address] Social History Tobacco Use Types Packs/Day Years [...] 2:00 PM EST Office Visit [facility] [address] [place] [address] Mitra Callaway, INTERLOCKER MAINTAINER, CNM [address] [place] [address] documented as of this encounter Visit Diagnoses Not on filedocumented in this encounter Care Teams Custom Shoe Designer And Maker Relationship Specialty Start Date End Date Pcp, No PCP - General 04/06/21 05/22/24 documented as of this encounter
--- OUTSIDE RECORDS SUMMARY | 2024-09-19 09:09 | XMS_ITS | Encounter Summary ---
Author Organization [facility] Address [address] [place] [address] Care Team Providers Care Hospital Liaison Name Role Phone Unavailable Primary Care Provider Unavailabl e Encounter Details Date Type Department Care Team (Late st Contact Info) Description 04/01/2021 Abstract [facility] [address] [place] [address] Macarena Palumbo APRN, COMPA [address] [place] [address] Social History Tobacco Use Types Packs/Day Years Used Date Smoking Tobacco: Never Comments Unknown Sex and Gender Information Value Date Recorded Sex Assigned at Not on file Legal Sex Female 6:27 PM EDT Gender Identity Female 04/27/2021 10:22 AM EDT Sexual Orientation Not on file documented as of this encounter Last Filed Vital Signs Vital Sign Reading Time Taken Comments Blood Pressure 127/76 03/30/2021 9:17 AM EDT Pulse - - Temperature - - Respiratory Rate - - Oxygen Saturation - - Inhaled Oxygen Concentration - - Weight - - Height - - Body Mass Index - - documented in this encounter Plan of Treatment Upcoming Encounters Date Type Department Care Team (Late st Contact Info) Description 09/21/2024 2:00 PM EST Office Visit [facility] [address] [place] [address] Mitra Callaway APRN, COMPA [address] [place] [phone] documented as of this encounter Visit Diagnoses Not on filedocumented in this encounter
--- OUTSIDE RECORDS SUMMARY | 2024-09-19 09:09 | XMS_ITS | Encounter Summary ---
Author Organization Healthcare Address [address] [place] [address] Care Team Providers Care Paper Sheeter Name Role Phone Unavailable Primary Care Provider Unavailabl e Encounter Details Date Type Department Care Team (Late st Contact Info) Description 08/23/2017 [facility] Vitals Encounter [facility] OUTPATIENT CONVERSIONS [address] [place] [address] ProviderElvis MD [address] [place], [place] [id number] Social History Tobacco Use Types Packs/Day Years [...] - Inhaled Oxygen Concentration - - Weight 70.4 kg (155 lb 4 oz) 08/23/2017 9:55 AM EDT Height 162.6 cm (5' 4 ) 08/23/2017 9:55 AM EDT Body Mass Index 26.65 08/23/2017 9:55 AM EDT documented in this encounter Plan of Treatment Upcoming Encounters Date Type Department Care Team (Late st Contact Info) Description 09/21/2024 2:00 PM EST Office Visit [facility] [address] [place] [address] Mitra Callaway APRN, CNM [address] [place] [address] documented as of this encounter Visit Diagnoses Not on filedocumented in this encounter
--- OUTSIDE RECORDS SUMMARY | 2024-09-19 09:09 | XMS_ITS | Encounter Summary ---
Author Organization [facility] Address [address] [place] [address] Care Team Providers Care Nutritionist Public Health Name Role Phone Pcp, No Primary Care Provider Unavailabl e Encounter Details Date Type Department Care Team (Latest Contact Info) Description 04/13/2021 2:45 PM EDT Routine [address] [facility] [address], [address] [place] [address] Phuong Calixto, METAL REED TUNER, CNM [address] [place] [address] 38 weeks gestation of (Primary Dx) Social History [...] Sign Reading Time Taken Comments Blood Pressure 126/74 04/13/2021 3:14 PM EDT Pulse - - Temperature - - Respiratory Rate - - Oxygen Saturation - - Inhaled Oxygen Concentration - - Weight 71.6 kg (157 lb 13.6 oz) 04/13/2021 3:14 PM EDT Height - - Body Mass Index 27.09 03/30/2021 9:17 AM EDT documented in this encounter Miscellaneous Notes * Patient Instructions - Phuong Calixto, DANNIELLE, CNM - 04/13/2021 2:45 PM EDT Images from the original note were not included. Patient Education Recognizing Labor The beginning of labor is the beginning of . You???ll start to feel strong contractions. That???s when the muscles of your uterus tighten up to help push your baby out during . Yes, labor has likely started?? Signs of labor include: ?? Your contractions are getting stronger and more painful instead of weaker. You???ll likely feel them throughout your whole uterus. ?? Your contractions are regular. This means that you feel them about every 5 to 10 minutes. And they are getting closer together. ?? You have pink-colored or blood-streaked fluid from your vagina. ?? You feel that the baby has dropped lower in your pelvis? Your water breaks. It may be a gush or a slow trickle of clear fluid from your vagina. No, it???s likely not real labor?? Signs of false labor include: ?? Your contractions aren???t regular or strong. ?? You feel the contractions only in your lower uterus. ?? Your contractions go away when you walk or change position. ?? Your contractions go away after drinking fluids. When to call your healthcare provider Call your healthcare provider or clinic right away if you notice any of these signs: ?? Fluid from your vagina, with or without contractions. ?? Bleeding heavy enough that you need a sanitary pad. ?? You don???t feel your baby moving as much as before. Note: Contractions are timed by both of these measures: ?? The length of each contraction from its start to its finish. ?? How far apart the contractions are --the time between the start of one contraction and the startof the next contraction. [employer] last reviewed this educational content on 05/28/2020 ?? [id number] [employer]. All rights reserved. This information is not intended as a substitute for professional medical care. Always follow your healthcare professional's instructions. Stages of Labor Labor has 3 stages. Your healthcare provider may talk about the progress of your labor with certainwords. One of these is your baby???s position. Another is your baby???s??station. And the effacement and dilation of your cervix will be noted. Read below to learn about these terms and the 3 stages of labor. Your baby moves into position Position is your baby???s placement in??your uterus. Your baby may be facing left or right. He or she may be head first or feet first. Station refers to how far your baby has moved down into??your pelvic cavity. First stage of labor During the first stage of labor, contractions of the uterus help your cervix thin (efface). They also help it widen (dilate). This will help your baby pass through the canal (vagina). At first your contractions will not come that often or last that long. But as time passes, they will come more often, they may be more painful, and they will last longer. They will last about 30 to 60 seconds each. The first stage of labor lasts until the cervix is fully dilated. Second stage of labor When your cervix is fully dilated, the second stage of labor begins. In this stage, you will have stronger contractions of your uterus that will help your baby move down the canal. They may happen every 2 to 5??minutes. They may last from 45 to 90 seconds each. Your healthcare provider will ask you to push with each contraction. Try to rest between the contractions if you can. Your baby is delivered at the end of this stage of labor. Third stage of labor The third stage of labor comes after your baby is born. This is when the afterbirth (placenta) comes out of??your uterus. Your uterus will continue to??contract. But the contractions??are much milderthan before. [employer] last reviewed this educational content on 07/28/2017 ?? [id number] [employer]. [address] [place] [address], [place] [address]. All rights reserved. This information is not intended as a substitute for professional medical care. Always follow your healthcare professional's instructions. Labor and Childbirth: Active Labor During active labor, your contractions will be stronger and more rhythmic than with early labor. They peak and subside like waves. They may happen??2 to??3 minutes apart and last about 45 to 60 seconds. This part of labor can be hard work. But it is often shorter than early labor. When you reach active labor, exams and tests will be done to see how you and your baby are doing. Your cervix may dilate 4 to 8 centimeters during the first part of active labor. Evaluating you and your baby An exam tells how you and your baby are responding to contractions. Your blood pressure, temperature, and pulse will be checked. A blood or urine sample may also be taken. A monitor will be used to check your baby???s heart rate. Sometimes an IV (intravenous) line is started to give you medicine and fluids. Moving ahead with labor You may now feel contractions in??your whole stomach instead of just the lower part (like during early labor). If your amniotic sac has not broken already, it may break now. Or, it may be broken for you. To help your baby descend, change position often. Walking or sitting in a rocking chair or recliner may help. You may find it hard to relax even though you are tired. You may also be less interested in talking than you were earlier. If you???re having anesthesia, you will get it now.?? Special issues during labor If labor doesn???t progress well or a problem arises, you may need a .??But your healthcareproviders may??take certain steps to help you avoid a : ?? If your cervix isn???t dilating, a medicine (oxytocin)??may be used to augment labor. ?? If monitoring shows your baby isn???t getting enough oxygen, shifting your body position may help. You may also be given oxygen through a mask. ?? If you have preeclampsia (a condition that results in high blood pressure, swelling, and other symptoms), you may be given medicines by IV (intravenous). Your healthcare provider may also tell youto lie on your left side. Responding to contractions During contractions, try to stay relaxed. Tense muscles use more oxygen, eat up your body???s energy, and increase pain. Use the breathing and relaxation techniques you may have learned. And let yoursupport person know how he or she can help. If you???ve had problems during a previous , focuson the present. Keep in mind that no 2 births are the same. Support person???s note Here's how you can help: ?? Have the mother walk or change positions at least once an hour. This improves circulation and helps the baby descend. ?? Keep reminding the mother to breathe and relax through each contraction. ?? Reassure her. Try to keep her from getting anxious or overstressed. ?? Take care of yourself. Take a short break to eat or go to the bathroom when you need to. ?? Rest when the mother does. You???ll both benefit. [employer] last reviewed this educational content on 11/28/2017 ?? [id number] [employer]. [address] [place] [address], [place] [address]. All rights reserved. This information is not intended as a substitute for professional medical care. Always follow your healthcare professional's instructions. Managing Labor Pain Without Medicine There are many ways to manage pain during labor. This pain can be different from one woman to another - and from one to another. If you are being induced, your contractions may be even more painful.?? Learning about the process will help you understand the discomfort of labor and help you choose the best way for you to cope. Talk to your health care provider about any choices you would like to explore. Relaxation to control pain Some??ways to relax are learned in special classes. Your health care provider can help you find such classes.??You and your partner should practice your relaxation method of choice before your labor begins. This will help you be comfortable with using them. These methods may help you: ?? Breathing techniques:?? ? Slow breathing helps during early labor to keep you focused and relaxed. ? Light quick breathing helps during active labor as the contraction builds. Then follow this with a deep cleansing breath. ? Kxdx-Mzrj-Yclo (Moody-Moody-Radha) works well in transition to keep you focused.? Massage and therapeutic touch by a support person or labor defensive secondary coach ?? Moving and changing position: Try to be upright as much as possible.? Reading materials that comfort or inspire ?? Imagery or use of a focal point? Music that you find soothing ?? Tub or shower: If there are no complications and you can have intermittent monitoring or auscultation (use of a heartbeat monitor from time to time to be sure your baby is doing well with labor), our [facility] has a tub you may use during active labor. All of our rooms also have showers with shower chairs.? Hypnosis ?? Acupuncture and acupressure ?? Heat and cold application ?? Aromatherapy ?? Exercise ball: We have these here for you to use. Your nurse can show you how to use them. ?? Peanut ball: These may be used when laboring without medicine or with an epidural. It helps openyour pelvis and lets your baby move down more quickly for .?? Getting ready before labor Write down your plan for managing labor pain. Discuss it with your health care provider so that youcan have your questions answered before labor begins. Naseem last reviewed this educational content on 06/12/2015 ?? [id number] [employer], [address] [place] [address], [place] [address]. All rights reserved. This information is not intended as a substitute for professional medical care. Always follow your healthcare professional's instructions. This information has been modified by your health care provider with permission from the publisher. What Is Epidural Anesthesia? Epidural is a kind of anesthesia. This is a medicine that blocks pain. It can be used for labor anddelivery. It's also used for some kinds of surgery. For an epidural, anesthetic is injected into the lower spine. This is done by an anesthesiologist. Or it may be done by a nurse dress designer??(SPRAYER LEATHER). How pain is blocked The spinal cord is the main path for pain signals. These signals travel from nerves through the spinal cord to your brain. The brain registers them as pain. The epidural blocks the nerves that enter your lower spine. Numbing your lower body Anesthetic is injected through the skin of your back into the part of the spinal canal called the epidural space. This blocks nerves below the point where it's injected. It can reduce pain or block most feeling. You are awake. And you still have feeling in your upper body. For labor and delivery An epidural can be used during labor and delivery. You may be asked to lie on your side. Or you maysit on the edge of your bed and lean over. First, your healthcare provider??numbs??a small part of your lower spine??with a local anesthetic.??Your provider??then puts a needle into the epidural space. A thin tube (catheter) is threaded through the needle. The needle is removed. The anesthetic thengoes through the catheter. In some cases, a pump is attached to the catheter. This gives you a constant dose of anesthetic as long as you need it. Risks and possible complications of epidural anesthesia Risks and possible complications include: ?? A sudden drop in blood pressure,??which may cause the baby's heart rate to drop temporarily ?? Severe headache after ?? Soreness of the back for several days ?? Dizziness, seizures, breathing problems, allergic reaction to the anesthetic, nerve damage, or paralysis (all very rare) When to seek medical care Follow your healthcare provider's care instructions after the procedure. Call your provider right away if you have any of the following: ?? Signs of infection at the epidural site, such as redness, swelling, warmth, or drainage ?? Fever over 100.4??F (38??C) or higher, or as advised by your healthcare provider ?? Chills ?? Shortness of breath or trouble breathing ?? Numbness or weakness your legs that doesn???t go away ?? Severe headache ?? Trouble controlling your bladder ?? Pain that isn???t relieved by pain medicine ?? Other symptoms as advised by your healthcare provider Naseem last reviewed this educational content on 10/28/2017 ?? [id number] [employer]. [address] [place] [address]. All rights reserved. This information is not intended as a substitute for professional medical care. Always follow your healthcare professional's instructions. Labor and Childbirth: Support Person's Notes You may be excited and anxious about the impending labor and childbirth. You may also wonder how you can help. Learning about the process can help you know what to expect. And following the suggestions below can help ease you and the mother through this exciting time. During early labor ?? Be sure to time the contractions. ?? Keep the setting soothing. Dim lights and prevent loud noises. Try playing relaxing music. ?? Suggest that the mother soak in a warm tub to ease the pain of contractions. ?? Try to distract the mother from the contractions with a short walk or massage. ?? Encourage the mother to rest if she's tired. ?? As contractions become stronger, help her use labor breathing techniques. During active labor ?? Have the mother walk or change position at least once an hour. This improves circulation and helps the baby descend. ?? Keep reminding the mother to breathe and relax through each contraction. ?? Reassure her. Try to keep her from getting anxious or overstressed. ?? Take care of yourself. Take a short break to eat or go to the bathroom when you need to. ?? Rest when the mother does. You'll both benefit. During a vaginal ?? Help the mother into a pushing position. Support her body as she pushes. A semi-sitting or semi-squatting position allows gravity to assist the . ?? Remind her to rest between contractions. Encourage her by telling her when the baby's head appears. ?? Keep in mind that you may be masked and gowned for the , depending on hospital policy. During a ?? You will most likely be able to stay with the mother during the . If you remain with her, you'll wear a mask and surgical gown. ?? Remember that is surgery. The mother's abdominal area will be draped and out of view. Don't touch the draped areas, which are sterile. ?? If you aren't allowed to attend the delivery or aren't comfortable doing so, wait with other friends and family members in the family waiting area. [employer] last reviewed this educational content on 11/28/2017 ?? [id number] [employer]. [address] [place] [address], [place] [address]. All rights reserved. This information is not intended as a substitute for professional medical care. Always follow your healthcare professional's instructions. and Childbirth: What to Bring to the Hospital You???re likely feeling anxious as your child???s approaches. This is normal. To give yourself some peace of mind, pack a bag ahead of time. Do this about one month ahead of your estimated delivery date. Here is a list of things to remember: ?? Personal care items, like a toothbrush, hair brush, lip balm, lotion, and shampoo ?? Eyeglasses (if you wear them) ?? Nightgown (if you plan to breastfeed, pack one that allows for nursing) ?? Nursing bra if you plan to breastfeed ?? Bathrobe and slippers ?? Many hospitals provide maternity underwear, but you may want to bring underwear that can be soiled because you will have bleeding after delivery ?? Comfortable clothes for you to wear home, like sweat pants, yoga pants, or other stretchable clothes, because your prepregnancy clothes may not fit after delivery of your baby ?? Clothes for your baby to wear home ?? Personal music player and headphones ?? Camera with new batteries or nurse auditor ?? Coins for vending machines ?? Telephone numbers of people to call after the ?? Cell phone and nurse auditor ?? Insurance information and any other paperwork needed for your hospital stay ?? A list of baby names you are considering ?? An , rear-facing car seat for bringing home your baby (this is required by law) Add anything else that you don???t want to forget: Naseem reza reviewed this educational content on 09/27/2017 ?? [id number] [employer]. [address] [place] [address], [place] [address]. All rights reserved. This information is not intended as a substitute for professional medical care. Always follow your healthcare professional's instructions. * Progress Notes - Phuong Calixto APRN, CNM - 04/13/2021 2:45 PM EDT No VB, LOF, or contractions. +FM. No complaints. Intermittent bilateral LE edema. Discussed propping feet up whenever possible and the use of compression socks. MDL still pending from last visit, symptoms have resolved besides occasional white/yellow discharge. CE with sweep performed today: 2 cm 60% -2 Discussed labor precautions with GBS+ COVID swab collected today. documented in this encounter Plan of Treatment Upcoming Encounters Date Type Department Care Team (Late st Contact Info) Description 09/21/2024 2:00 PM EST Office Visit [address] [facility] [address], [address] [place] [address] Mitra Callaway APRN, CNM [address] [place] [address] documented as of this encounter Results * SARS CoV-2/COVID-19 by PCR (04/13/2021 4:09 PM EDT) SARS CoV-2/COVID-1 9 RNA PCR Result Not Detected Not Detected 04/14/2021 12:59 AM EDT [facility] Swab Nasopharyngeal structure / Unknown Non-blood Collection / Unknown 04/13/2021 4:09 PM EDT 04/13/2021 8:22 PM EDT Narrative [facility] - 04/14/2021 12:59 AM EDT [...] recommendations. This test was performed using the [employer] m SARS CoV-2 assay, a PCR-based [...] Keerthi Avila APRN, CNM LAB MICROBIOLOGY - [facility] ORDERABLES Final Result [facility] [address] [place] [address] documented in this encounter Visit Diagnoses Diagnosis 38 weeks gestation of - Primary documented in this encounter Care Teams Nutritionist Public Health Relationship Specialty Start Date End Date Pcp, No PCP - General 04/06/21 05/22/24 documented as of this encounter
--- OUTSIDE RECORDS SUMMARY | 2024-09-19 09:10 | XMS_ITS | Encounter Summary ---
Author Organization [facility] Address [address] [place] [address] Care Team Providers Care Sodder Name Role Phone Julia Dumas MD Primary Care Provider [phone] Reason for Visit * Reason Comments Insect Bite Encounter Details Date Type Department Care Team (Late st Contact Info) Description 02/16/2019 2:00 PM EDT Office Visit [address] [place] [address] Infected insect bite of right upper extremity, initial encounter (Primary Dx) Social History Tobacco Use Types Packs/Day Years Used Date Smoking Tobacco: Never Comments No Sex and Gender Information Value Date Recorded Sex Assigned at Not on file Legal Sex Female 11:01 AM EDT Gender Identity Not on file Sexual Orientation Not on file documented as of this encounter Last Filed Vital Signs Vital Sign Reading Time Taken Comments Blood Pressure 104/58 02/16/2019 1:57 PM EDT Pulse 74 02/16/2019 1:57 PM EDT Temperature 36.4 ??C (97.6 ??F) 02/16/2019 1:57 PM ED T Respiratory Rate 16 02/16/2019 1:57 PM EDT Oxygen Saturation 98% 02/16/2019 1:57 PM EDT Inhaled Oxygen Concentration - - Weight 49 kg (108 lb) 02/16/2019 1:57 PM EDT Height 160 cm (5' 3 ) 02/16/2019 1:57 PM EDT Body Mass Index 19.13 02/16/2019 1:57 PM EDT documented in this encounter Progress Notes * Beto Burr APRN - 02/16/2019 2:00 PM EDT Subjective Minda Ngo is a 24 y.o. female. Insect Bite This is a new problem. Episode onset: 3 days. The problem occurs constantly. The problem has been gradually worsening. Pertinent negatives include no abdominal pain, anorexia, chest pain, chills, congestion, coughing, fatigue, fever, nausea, neck pain, rash, swollen glands or weakness. Nothing aggravates the symptoms. Treatments tried: otc itch cream. The treatment provided no relief. The following portions of the patient's history were reviewed and updated as appropriate: allergies, current medications, past medical history, past social history, past surgical history and problem list. Review of Systems Constitutional: Negative. Negative for chills, fatigue and fever. HENT: Negative for congestion. Respiratory: Negative. Negative for cough. Cardiovascular: Negative. Negative for chest pain. Gastrointestinal: Negative. Negative for abdominal pain, anorexia and nausea. Musculoskeletal: Negative for neck pain. Skin: Positive for wound (two itching, painful insect bites on right lower arm, redness spreading and worsening, unresponsive otc medication). Negative for rash. Neurological: Negative for weakness. Hematological: Negative. Negative for adenopathy. BP 104/58 Pulse 74 Temp 97.6 ??F (36.4 ??C) Resp 16 Ht 160 cm (63 ) Wt 49 kg (108 lb) LMP 01/26/2019 SpO2 98% BMI 19.13 kg/m?? Objective Physical Exam Constitutional: She is oriented to person, place, and time. She appears well- developed and well-nourished. No distress. Cardiovascular: Normal rate and regular rhythm. Pulmonary/Chest: Effort normal and breath sounds normal. No respiratory distress. Neurological: She is alert and oriented to person, place, and time. Skin: Skin is warm and dry. Lesion (two lesion on right lower arm, redness, swelling, pain on palpation) noted. There is erythema. Psychiatric: She has a normal mood and affect. Her behavior is normal. Thought content normal. Vitals reviewed. Assessment/Plan Minda was seen today for insect bite. Diagnoses and all orders for this visit: Infected insect bite of right upper extremity, initial encounter - mupirocin (BACTROBAN) 2 % ointment; Apply topically to the appropriate area as directed 3 (Three)Times a Day. - amoxicillin-clavulanate (AUGMENTIN) 875-125 MG per tablet; Take 1 tablet by mouth 2 (Two) Times aDay. - predniSONE (DELTASONE) 10 MG (21) tablet pack; Take by mouth Daily for 6 days. Use as directed onpackage documented in this encounter Plan of Treatment Not on file documented as of this encounter Visit Diagnoses Diagnosis Infected insect bite of right upper extremity, initial encounter- Primary documented in this encounter Care Teams Sodder Relationship Specialty Start Date End Date Julia Dumas MD PCP - General Family Medicine 02/28/18 documented as of this encounter
--- OUTSIDE RECORDS SUMMARY | 2024-09-19 09:10 | XMS_ITS | Encounter Summary ---
Author Organization [facility] [place], [facility] Address [address] [place] [address] Care Team Providers Care Oyster Grader Name Role Phone Julia Dumas MD Primary Care Provider [phone] Reason for Visit * Reason Comments Sinusitis Encounter Details Date Type Department Care Team (Latest Contact Info) Description 12/04/2019 11:45 AM EST Office Visit [facility] [address] [place] [address] Gastroenteritis (Primary Dx) Social History Tobacco Use Types Packs/Day Years Used Date Smoking Tobacco: Never Comments No Sex and Gender Information Value Date Recorded Sex Assigned at Not on file Legal Sex Female 11:01 AM EDT Gender Identity Not on file Sexual Orientation Not on file documented as of this encounter Last Filed Vital Signs Vital Sign Reading Time Taken Comments Blood Pressure 110/62 12/04/2019 11:53 AM EST Pulse 110 12/04/2019 11:53 AM EST Temperature 37.2 ??C (99 ??F) 12/04/2019 11:53 AM EST Respiratory Rate 15 12/04/2019 11:53 AM EST Oxygen Saturation 99% 12/04/2019 11:53 AM EST Inhaled Oxygen Concentration - - Weight 51 kg (112 lb 6.4 oz) 12/04/2019 11:53 AM EST Height 162.6 cm (5' 4 ) 12/04/2019 11:53 AM EST Body Mass Index 19.29 12/04/2019 11:53 AM EST documented in this encounter Patient Instructions * Patient Instructions* Monica Mojica APRN - 12/04/2019 11:45 AM EST Images from the original note were not included. Viral Gastroenteritis, Adult Viral gastroenteritis is also known as the stomach flu. This condition is caused by various viruses. These viruses can be passed from person to person very easily (are very contagious). This condition may affect your stomach, small intestine, and large intestine. It can cause sudden watery diarrhea, fever, and vomiting. Diarrhea and vomiting can make you feel weak and cause you to become dehydrated. You may not be able to keep fluids down. Dehydration can make you tired and thirsty, cause you to have a dry mouth, and decrease how often you urinate. Older adults and people with other diseases or a weak immune system are at higher risk for dehydration. It is important to replace the fluids that you lose from diarrhea and vomiting. If you become severely dehydrated, you may need to get fluids through an IV tube. What are the causes? Gastroenteritis is caused by various viruses, including rotavirus and norovirus. Norovirus is the most common cause in adults. You can get sick by eating food, drinking water, or touching a surface contaminated with one of these viruses. You can also get sick from sharing utensils or other personal items with an infected person. What increases the risk? This condition is more likely to develop in people: ?? Who have a weak defense system (immune system). ?? Who live with one or more children who are younger than 2 years old. ?? Who live in a correction. ?? Who go on cruise ships. What are the signs or symptoms? Symptoms of this condition start suddenly 1-2 days after exposure to a virus. Symptoms may last a few days or as long as a week. The most common symptoms are watery diarrhea and vomiting. Other symptoms include: ?? Fever. ?? Headache. ?? Fatigue. ?? Pain in the abdomen. ?? Chills. ?? Weakness. ?? Nausea. ?? Muscle aches. ?? Loss of appetite. How is this diagnosed? This condition is diagnosed with a medical history and physical exam. You may also have a stool test to check for viruses or other infections. How is this treated? This condition typically goes away on its own. The focus of treatment is to restore lost fluids (rehydration). Your health care provider may recommend that you take an oral rehydration solution (ORS)to replace important salts and minerals (electrolytes) in your body. Severe cases of this conditionmay require giving fluids through an IV tube. Treatment may also include medicine to help with your symptoms. Follow these instructions at home: Follow instructions from your health care provider about how to care for yourself at home. Follow these recommendations as told by your health care provider: ?? Take an ORS. This is a drink that is sold at pharmacies and retail stores. ?? Drink clear fluids in small amounts as you are able. Clear fluids include water, ice chips, diluted fruit juice, and low-calorie sports drinks. ?? Eat bland, vydj-vq-qbmjxx foods in small amounts as you are able. These foods include bananas, applesauce, rice, lean meats, toast, and crackers. ?? Avoid fluids that contain a lot of sugar or caffeine, such as energy drinks, sports drinks, and soda. ?? Avoid alcohol. ?? Avoid spicy or fatty foods. General instructions ?? Drink enough fluid to keep your urine clear or pale yellow. ?? Wash your hands often. If soap and water are not available, use hand architecture faculty member. ?? Make sure that all people in your household wash their hands well and often. ?? Take nzef-exa-msjplas and prescription medicines only as told by your health care provider. ?? Rest at home while you recover. ?? Watch your condition for any changes. ?? Take a warm bath to relieve any burning or pain from frequent diarrhea episodes. ?? Keep all follow-up visits as told by your health care provider. This is important. Contact a health care provider if: ?? You cannot keep fluids down. ?? Your symptoms get worse. ?? You have new symptoms. ?? You feel light-headed or dizzy. ?? You have muscle cramps. Get help right away if: ?? You have chest pain. ?? You feel extremely weak or you faint. ?? You see blood in your vomit. ?? Your vomit looks like coffee grounds. ?? You have bloody or black stools or stools that look like tar. ?? You have a severe headache, a stiff neck, or both. ?? You have a rash. ?? You have severe pain, cramping, or bloating in your abdomen. ?? You have trouble breathing or you are breathing very quickly. ?? Your heart is beating very quickly. ?? Your skin feels cold and clammy. ?? You feel confused. ?? You have pain when you urinate. ?? You have signs of dehydration, such as: ? Dark urine, very little urine, or no urine. ? Cracked lips. ? Dry mouth. ? Sunken eyes. ? Sleepiness. ? Weakness. This information is not intended to replace advice given to you by your health care provider. Make sure you discuss any questions you have with your health care provider. Document Released: 10/14/2006 Document Revised: 05/29/2018 Document Reviewed: 06/19/2016 [employer] Patient Education ?? 2019 Site Tour. documented in this encounter Progress Notes * Monica Mojica APRN - 12/04/2019 11:45 AM EST Valentine Ngo is a 24 y.o. female. BP 110/62 Pulse 110 Temp 99 ??F (37.2 ??C) Resp 15 Ht 162.6 cm (64 ) Wt 51 kg (112 lb 6.4oz) LMP (LMP Unknown) SpO2 99% BMI 19.29 kg/m?? History reviewed. No pertinent past medical history. No Known Allergies Nausea This is a new problem. Episode onset: past 2 days. The problem has been gradually worsening. Associated symptoms include fatigue, headaches (mild, resolved), myalgias, nausea and vomiting. Pertinent negatives include no abdominal pain, anorexia, arthralgias, change in bowel habit, chest pain, chills , congestion, coughing, fever, neck pain, rash, sore throat, swollen glands, urinary symptoms, vertigo, visual change or weakness. The following portions of the patient's history were reviewed and updated as appropriate: allergies, current medications, past family history, past medical history, past social history, past surgicalhistory and problem list. Review of Systems Constitutional: Positive for appetite change and fatigue. Negative for activity change, chills and fever. HENT: Negative for congestion, postnasal drip, rhinorrhea, sinus pain and sore throat. Eyes: Negative. Respiratory: Negative. Negative for cough. Cardiovascular: Negative. Negative for chest pain. Gastrointestinal: Positive for nausea and vomiting. Negative for abdominal pain, anorexia, change in bowel habit and diarrhea. Musculoskeletal: Positive for myalgias. Negative for arthralgias and neck pain. Skin: Negative for rash. Neurological: Positive for headaches (mild, resolved). Negative for vertigo and weakness. Objective Physical Exam Constitutional: She appears well-developed and well-nourished. Non-toxic appearance. She appears ill (mild). HENT: Head: Normocephalic and atraumatic. Right Ear: Tympanic membrane and ear canal normal. Left Ear: Tympanic membrane and ear canal normal. Nose: Mucosal edema and rhinorrhea present. Right sinus exhibits no maxillary sinus tenderness and no frontal sinus tenderness. Left sinus exhibits no maxillary sinus tenderness and no frontal sinus tenderness. Mouth/Throat: Uvula is midline, oropharynx is clear and moist and mucous membranes are normal. Cardiovascular: Regular rhythm and normal heart sounds. Pulmonary/Chest: Effort normal. She has no wheezes. She has no rhonchi. She has no rales. Lymphadenopathy: She has no cervical adenopathy. Skin: Skin is warm and dry. Assessment/Plan Minda was seen today for sinusitis. Diagnoses and all orders for this visit: Gastroenteritis - POC Influenza A / B Other orders - promethazine (PHENERGAN) 12.5 MG tablet; Take 1 tablet by mouth Every 6 (Six) Hours As Needed forNausea or Vomiting for up to 3 days. Results for orders placed or performed in visit on 12/04/19 POC Influenza A / B Result Value Ref Range Rapid Influenza A Ag Negative Negative Rapid Influenza B Ag Negative Negative Internal Control Passed Passed Lot Number [id number] Expiration Date 302,021 documented in this encounter Plan of Treatment Not on file documented as of this encounter Procedures Procedure Name Priority Date/Time Associated Diagnosis Comments POCT INFLUENZA A/B Routine 12/04/2019 12 :03 PM EST Gastroenteritis documented in this encounter Results * POC Influenza A / B (12/04/2019 12:03 PM EST) Rapid Influenza A Ag Negative Negative [facility] Rapid Influenza B Ag Negative Negative [facility] Internal Control Passed Passed [facility] Lot Number [id number] [facility] Expiration Date [id number] [facility] Swab 12/04/2019 12:0 3 PM EST Monica Mojica AUTOMOTIVE BRAKE TECHNICIAN POINT OF CARE TEST OR DERABLES Final Result [facility]
[address] [phone] documented in this encounter Visit Diagnoses Diagnosis Gastroenteritis- Primary Other and unspecified noninfectious gastroenteritis and colitis documented in this encounter Care Teams Oyster Grader Relationship Specialty Start Date End Date Julia Dumas MD PCP - General Family Medicine 02/28/18 documented as of this encounter
--- OUTSIDE RECORDS SUMMARY | 2024-09-19 09:10 | XMS_ITS | Encounter Summary ---
Author Organization Healthcare Address [address] [place] [address] Care Team Providers Care Motor Coach Supervisor Name Role Phone Unavailable Primary Care Provider Unavailabl e Encounter Details Date Type Department Care Team (Late st Contact Info) Description 05/09/2017 [facility] Vitals Encounter [facility] [address] [place] [address] ProviderElvis MD [address] [place], [place] [id number] Social History Tobacco Use Types Packs/Day Years [...] - Inhaled Oxygen Concentration - - Weight 56 kg (123 lb 8 oz) 05/09/2017 3:57 PM ED T Height 162.6 cm (5' 4 ) 05/09/2017 3:57 PM EDT Body Mass Index 21.2 05/09/2017 3:57 PM EDT documented in this encounter Plan of Treatment Upcoming Encounters Date Type Department Care Team (Late st Contact Info) Description 09/21/2024 2:00 PM EST Office Visit [facility] [address] [place] [address] Mitra Callaway APRN, CNM [address] [place] [address] documented as of this encounter Visit Diagnoses Not on filedocumented in this encounter
--- OUTSIDE RECORDS SUMMARY | 2024-09-19 09:10 | XMS_ITS | Encounter Summary ---
Author Organization Healthcare Address [address] [place] [address] Care Team Providers Care Biofuels Product Manager Name Role Phone Unavailable Primary Care Provider Unavailabl e Encounter Details Date Type Department Care Team (Late st Contact Info) Description 04/08/2017 [facility] Vitals Encounter [facility] OUTPATIENT CONVERSIONS [address] [place] [address] ProviderElvis MD [address] [place], [place] [id number] Social History Tobacco Use Types Packs/Day Years [...] - Inhaled Oxygen Concentration - - Weight 53.2 kg (117 lb 6 oz) 04/08/2017 3:44 PM EDT Height 162.6 cm (5' 4 ) 04/08/2017 3:44 PM EDT Body Mass Index 20.15 04/08/2017 3:44 PM EDT documented in this encounter Plan of Treatment Upcoming Encounters Date Type Department Care Team (Late st Contact Info) Description 09/21/2024 2:00 PM EST Office Visit [facility] [address] [place] [address] Mitra Callaway APRN, CNM [address] [place] [address] documented as of this encounter Visit Diagnoses Not on filedocumented in this encounter
--- OUTSIDE RECORDS SUMMARY | 2024-09-19 09:10 | XMS_ITS | Encounter Summary ---
[facility] Address [address] [place] [address] Care Team Providers Care Community Artist Name Role Phone Julia Dumas MD Primary Care Provider +1- [phone] Reason for Visit * Reason Comments Sore Throat Encounter Details Date Type Department Care Team (Late st Contact Info) Description 08/14/2018 12:00 PM EDT Office Visit [address] [place] [address] Exudative pharyngitis (Primary Dx) Social History Tobacco Use Types Packs/Day Years Used Date Smoking Tobacco: Never Comments No Sex and Gender Information Value Date Recorded Sex Assigned at Not on file Legal Sex Female 11:01 AM EDT Gender Identity Not on file Sexual Orientation Not on file documented as of this encounter Last Filed Vital Signs Vital Sign Reading Time Taken Comments Blood Pressure 104/66 08/14/2018 12:00 PM EDT Pulse 88 08/14/2018 12:00 PM EDT Temperature 36.2 ??C (97.1 ??F) 08/14/2018 12:00 PM E DT Respiratory Rate 14 08/14/2018 12:00 PM EDT Oxygen Saturation 99% 08/14/2018 12:00 PM EDT Inhaled Oxygen Concentration - - Weight 49.7 kg (109 lb 9.6 oz) 08/14/2018 12:00 PM EDT Height 162.6 cm (5' 4 ) 08/14/2018 12:00 PM EDT Body Mass Index 18.81 08/14/2018 12:00 PM EDT documented in this encounter Patient Instructions * Patient Instructions* Beto Burr APRN - 08/14/2018 12:15 PM EDT Images from the original note were not included. Strep Throat Strep throat is a bacterial infection of the throat. Your health care provider may call the infection tonsillitis or pharyngitis, depending on whether there is swelling in the tonsils or at the back of the throat. Strep throat is most common during the cold months of the year in children who are 5-15 years of age, but it can happen during any season in people of any age. This infection is spread from person to person (contagious) through coughing, sneezing, or close contact. What are the causes? Strep throat is caused by the bacteria called Streptococcus pyogenes. What increases the risk? This condition is more likely to develop in: ?? People who spend time in crowded places where the infection can spread easily. ?? People who have close contact with someone who has strep throat. What are the signs or symptoms? Symptoms of this condition include: ?? Fever or chills. ?? Redness, swelling, or pain in the tonsils or throat. ?? Pain or difficulty when swallowing. ?? White or yellow spots on the tonsils or throat. ?? Swollen, tender glands in the neck or under the jaw. ?? Red rash all over the body (rare). How is this diagnosed? This condition is diagnosed by performing a rapid strep test or by taking a swab of your throat (throat culture test). Results from a rapid strep test are usually ready in a few minutes, but throat culture test results are available after one or two days. How is this treated? This condition is treated with antibiotic medicine. Follow these instructions at home: Medicines ?? Take njtu-cfn-lmaoqcy and prescription medicines only as told by your health care provider. ?? Take your antibiotic as told by your health care provider. Do not stop taking the antibiotic even if you start to feel better. ?? Have family members who also have a sore throat or fever tested for strep throat. They may need antibiotics if they have the strep infection. Eating and drinking ?? Do not share food, drinking cups, or personal items that could cause the infection to spread to other people. ?? If swallowing is difficult, try eating soft foods until your sore throat feels better. ?? Drink enough fluid to keep your urine clear or pale yellow. General instructions ?? Gargle with a salt-water mixture 3-4 times per day or as needed. To make a salt-water mixture, completely dissolve ??-1 tsp of salt in 1 cup of warm water. ?? Make sure that all household members wash their hands well. ?? Get plenty of rest. ?? Stay home from school or work until you have been taking antibiotics for 24 hours. ?? Keep all follow-up visits as told by your health care provider. This is important. Contact a health care provider if: ?? The glands in your neck continue to get bigger. ?? You develop a rash, cough, or earache. ?? You cough up a thick liquid that is green, yellow-brown, or bloody. ?? You have pain or discomfort that does not get better with medicine. ?? Your problems seem to be getting worse rather than better. ?? You have a fever. Get help right away if: ?? You have new symptoms, such as vomiting, severe headache, stiff or painful neck, chest pain, or shortness of breath. ?? You have severe throat pain, drooling, or changes in your voice. ?? You have swelling of the neck, or the skin on the neck becomes red and tender. ?? You have signs of dehydration, such as fatigue, dry mouth, and decreased urination. ?? You become increasingly sleepy, or you cannot wake up completely. ?? Your joints become red or painful. This information is not intended to replace advice given to you by your health care provider. Make sure you discuss any questions you have with your health care provider. Document Released: 10/11/2001 Document Revised: 06/12/2017 Document Reviewed: 02/06/2016 [employer] Patient Education ?? 2018 [employer] documented in this encounter Progress Notes * Beto Burr APRN - 08/14/2018 12:00 PM EDT Valentine Ngo is a 23 y.o. female. Sore Throat This is a new problem. The current episode started yesterday. The problem has been gradually worsening. There has been no fever. The pain is severe. Associated symptoms include congestion, headaches and swollen glands. Pertinent negatives include no coughing, diarrhea, ear pain, hoarse voice, shortness of breath, stridor, trouble swallowing or vomiting. She has had no exposure to strep or mono. She has tried NSAIDs (decongestant) for the symptoms. The treatment provided mild relief. The following portions of the patient's history were reviewed and updated as appropriate: allergies, current medications, past family history, past medical history, past social history, past surgicalhistory and problem list. Review of Systems Constitutional: Positive for fatigue. Negative for appetite change, chills and fever. HENT: Positive for congestion, postnasal drip, rhinorrhea and sore throat. Negative for ear pain, hoarse voice, sinus pressure, sneezing and trouble swallowing. Eyes: Negative. Respiratory: Negative. Negative for cough, shortness of breath and stridor. Cardiovascular: Negative. Gastrointestinal: Negative for diarrhea, nausea and vomiting. Musculoskeletal: Positive for myalgias. Skin: Negative. Neurological: Positive for headaches. Hematological: Positive for adenopathy. Psychiatric/Behavioral: Negative. BP 104/66 Pulse 88 Temp 97.1 ??F (36.2 ??C) (Temporal Artery ) Resp 14 Ht 162.6 cm (64 ) Wt 49.7 kg (109 lb 9.6 oz) SpO2 99% BMI 18.81 kg/m?? Objective Physical Exam Constitutional: She is oriented to person, place, and time. Vital signs are normal. She appears well-developed and well-nourished. HENT: Head: Normocephalic and atraumatic. Right Ear: External ear and ear canal normal. No drainage, swelling or tenderness. Tympanic membrane is not erythematous and not bulging. Left Ear: External ear and ear canal normal. No drainage, swelling or tenderness. Tympanic membraneis not erythematous and not bulging. Nose: Mucosal edema and rhinorrhea present. Right sinus exhibits no maxillary sinus tenderness and no frontal sinus tenderness. Left sinus exhibits no maxillary sinus tenderness and no frontal sinus tenderness. Mouth/Throat: Uvula is midline and mucous membranes are normal. Posterior oropharyngeal erythema present. Tonsils are 2+ on the right. Tonsils are 2+ on the left. Tonsillar exudate (right > left). Neck: Neck supple. Cardiovascular: Normal rate, regular rhythm, S1 normal, S2 normal and normal heart sounds. Pulmonary/Chest: Effort normal and breath sounds normal. No respiratory distress. She has no wheezes. Abdominal: Soft. Normal appearance. There is no splenomegaly. There is no tenderness. There is no rebound and no guarding. Lymphadenopathy: Head (right side): Tonsillar (right > left) adenopathy present. Head (left side): Tonsillar adenopathy present. She has cervical adenopathy. Neurological: She is alert and oriented to person, place, and time. Skin: Skin is warm and dry. No rash noted. Psychiatric: She has a normal mood and affect. Her speech is normal and behavior is normal. Thoughtcontent normal. Cognition and memory are normal. Nursing note and vitals reviewed. Results for orders placed or performed in visit on 08/14/18 POC Rapid Strep A Result Value Ref Range Rapid Strep A Screen Negative Negative, VALID, INVALID, Not Performed Internal Control Passed Passed Lot Number [id number] Expiration Date Assessment/Plan Minda was seen today for sore throat. Diagnoses and all orders for this visit: Exudative pharyngitis - POC Rapid Strep A - Beta Strep Culture, Throat - Swab, Throat - azithromycin (ZITHROMAX Z-SHEMAR) 250 MG tablet; Take 2 tablets the first day, then 1 tablet daily for 4 days. documented in this encounter Plan of Treatment Not on file documented as of this encounter Procedures Procedure Name Priority Date/Time Associated Diagnosis Comments BETA HEMOLYTIC STREP CULTURE, THROAT Routine 08/14/2018 12:11 PM EDT Exudative pharyngitis POCT RAPID STREP A Routine 08/14/2018 12 :10 PM EDT Exudative pharyngitis documented in this encounter Results * Beta Strep Culture, Throat - Swab, Throat (08/14/2018 12:11 PM EDT) Beta Strep Gp A Culture Negative [facility] Swab Specimen from throat / Unknown 08/14/2018 12:11 PM EDT 08/14/2018 Comment:SWAB Narrative [facility] ([facility]) - 08/17/2018 3:06 AM EDT Performed at: ??01 - [facility] [address], [place], [place] ??[id number] Ratings Analyst: Alfonso Haines PhD, Phone: ??[phone] us Beto Quiroz APRN MICROBIOLOGY - GENERAL ORDE RABLES Final Result Performing Organization Address City/[facility]/ZIP Co de Phone Number [facility] ([facility]) [address] [place] [address], [place] [phone] [facility] [address] [place] [address], [place] [phone] * POC Rapid Strep A (08/14/2018 12:10 PM EDT) [facility] Rapid Strep A Screen Negative Negative, VALID, INVALID, Not Performed [facility] Internal Control Passed Passed [facility] Lot Number [id number] [facility] Expiration Date [phone] [facility] Swab 08/14/2018 12:1 0 PM EDT Beto Burr V, DANNIELLE POINT OF CARE TEST ORDERABL ES Final Result Performing Organization Address City/[facility]/ZIP Co de Phone Number [facility]
[address] [place] [address], documented in this encounter Visit Diagnoses Diagnosis Exudative pharyngitis- Primary documented in this encounter Care Teams Community Artist Relationship Specialty Start Date End Date Julia Dumas MD PCP - General Family Medicine 02/28/18 documented as of this encounter
--- OUTSIDE RECORDS SUMMARY | 2024-09-19 09:10 | XMS_ITS | Encounter Summary ---
Author Organization Healthcare Address [address] [place] [address] Care Team Providers Care Veterinary Nurse Name Role Phone Unavailable Primary Care Provider Unavailabl e Encounter Details Date Type Department Care Team (Late st Contact Info) Description 03/18/2017 [facility] Vitals Encounter [facility] OUTPATIENT CONVERSIONS [address] [place] [address] ProviderElvis MD [address] [place], [place] [id number] Social History Tobacco Use Types Packs/Day Years [...] - Inhaled Oxygen Concentration - - Weight 52.2 kg (115 lb 2 oz) 03/18/2017 3:39 PM EDT Height 162.6 cm (5' 4 ) 03/18/2017 3:39 PM EDT Body Mass Index 19.76 03/18/2017 3:39 PM EDT documented in this encounter Plan of Treatment Upcoming Encounters Date Type Department Care Team (Late st Contact Info) Description 09/21/2024 2:00 PM EST Office Visit [facility] [address] [place] [address] Mitra Callaway APRN, CNM [address] [place] [address] documented as of this encounter Visit Diagnoses Not on filedocumented in this encounter
--- OUTSIDE RECORDS SUMMARY | 2024-09-19 09:10 | XMS_ITS | Clinical Summary ---
[facility] Address [address] [place] [address] Care Team Providers Care Automotive Parts Counterperson Name Role Phone Julia Dumas MD Primary Care Provider +1- [phone] Allergies No known active allergies Medications No known medications Active Problems Problem Noted Date Diagnosed Date (infant) 02/28/2018 Social History Tobacco Use Types Packs/Day Years Used Date Smoking Tobacco: Never Abuse Screen Answer Date Recorded Unsafe at Home or Work/School Not on file Feels Threatened by Someone? Not on file 06/2023 Does Anyone Keep You from Co ntacting Others or Doint Things Outside the Home? Not on file 08/05/2023 Physical Sign of Abuse Present Not on file 1 Housing Stability Answer Date Recorded Current Living Arrangements Not on file 06/2023 Potentially Unsafe Housing Conditions Not on daisy e 08/05/2023 Family and Community Support Answer Tai e Recorded Help with Day-to-Day Activities Not on file 08/05/2023 Lonely or Isolated Not on file 08/05/2023 Employment Answer Date Recorded Do you want help finding or keeping work or a lonnie b? Not on file 08/05/2023 Disabilities Answer Date Recorded Concentrating, Remembering, or Making Decisions Difficulty Not on file 08/05/2023 Doing Errands Independently Difficulty Not on fi le 08/05/2023 Education Answer Date Recorded Help with school or training? Not on file Preferred Language Not on file 08/05/2023 Comments No Sex and Gender Information Value Date Recorded Sex Assigned at Not on file Legal Sex Female 11:01 AM EDT Gender Identity Not on file Sexual Orientation Not on file Last Filed [...] Mass Index 19.29 12/04/2019 11:53 AM EST Plan of Treatment Health Maintenance Due Date Last Done Comments Annual Gynecologic Pelvic an d Breast Exam 1996 ANNUAL PHYSICAL 02/28/2018 HEPATITIS C SCREENING 02/28/2018 PAP SMEAR 02/28/2018 INFLUENZA VACCINE 05/28/2024 08/02/2017, 08/16/2016 COVID-19 Vaccine (1 - 2023-2 5 season) 2024 TDAP/TD VACCINES (2 - Td or Tdap) 08/09/2027 08/09/2017 Pneumococcal Vaccine 0-64 Aged Out No longer eligible based on patient's age to complete this topic Insurance HUMAN Care Teams Automotive Parts Counterperson Relationship Specialty Start Date End Date Julia Dumas MD PCP - General Family Medicine 02/28/18
--- OUTSIDE RECORDS SUMMARY | 2024-09-19 09:10 | XMS_ITS | Encounter Summary ---
[facility] [address] [place] [address] Care Team Providers Care Foundation Engineer Name Role Phone Julia Dumas MD Primary Care Provider +1- [phone] Reason for Visit * Reason Comments Sinusitis Encounter Details Date Type Department Care Team (Late st Contact Info) Description 02/28/2018 11:15 AM EDT Office Visit [facility] [address] [place] [address] Acute non-recurrent maxillary sinusitis (Primary Dx) Social History Tobacco Use Types [...] Taken Comments Blood Pressure - - Pulse 100 02/28/2018 11:05 AM EDT Temperature 36.6 ??C (97.9 ??F) 02/28/2018 11:05 AM E DT Respiratory Rate 14 02/28/2018 11:05 AM EDT Oxygen Saturation 97% 02/28/2018 11:05 AM EDT Inhaled Oxygen Concentration - - Weight 52.2 kg (115 lb) 02/28/2018 11:05 AM EDT Height 162.6 cm (5' 4 ) 02/28/2018 11:05 AM EDT Body Mass Index 19.74 02/28/2018 11:05 AM EDT documented in this encounter Progress Notes * Monica Mojica APRN - 02/28/2018 11:15 AM EDT Subjective Minda Ngo is a 23 y.o. female. Pulse 100 Temp 97.9 ??F (36.6 ??C) (Temporal Artery ) Resp 14 Ht 162.6 cm (64 ) Wt 52.2 kg (115 lb) LMP 01/28/2018 SpO2 97% ? Yes BMI 19.74 kg/m?? Sinusitis This is a new problem. The current episode started in the past 7 days. The problem has been gradually worsening since onset. Maximum temperature: subjective. The pain is moderate. Associated symptomsinclude congestion, coughing (productive), headaches, a hoarse voice, sinus pressure (worse on right side) and a sore throat. Pertinent negatives include no chills, diaphoresis, ear pain, neck pain, shortness of breath, sneezing or swollen glands. The following portions of the patient's history were reviewed and updated as appropriate: allergies, current medications, past family history, past medical history, past social history, past surgicalhistory and problem list. Review of Systems Constitutional: Negative for chills and diaphoresis. HENT: Positive for congestion, hoarse voice, sinus pressure (worse on right side) and sore throat. Negative for ear pain and sneezing. Respiratory: Positive for cough (productive). Negative for shortness of breath. Musculoskeletal: Negative for neck pain. Neurological: Positive for headaches. Objective Physical Exam Constitutional: She appears well-developed and well-nourished. Non-toxic appearance. HENT: Head: Normocephalic and atraumatic. Right Ear: Tympanic membrane and ear canal normal. Left Ear: Tympanic membrane and ear canal normal. Nose: Mucosal edema and rhinorrhea present. Right sinus exhibits maxillary sinus tenderness. Left sinus exhibits maxillary sinus tenderness. Mouth/Throat: Uvula is midline. Posterior oropharyngeal erythema (mild) present. Tonsils are 1+ on the right. Tonsils are 1+ on the left. Cardiovascular: Regular rhythm and normal heart sounds. Pulmonary/Chest: Effort normal. She has no wheezes. She has no rhonchi. She has no rales. Lymphadenopathy: She has no cervical adenopathy. Skin: Skin is warm and dry. Assessment/Plan Minda was seen today for sinusitis. Diagnoses and all orders for this visit: Acute non-recurrent maxillary sinusitis - POC Rapid Strep A Other orders - azithromycin (ZITHROMAX Z-SHEMAR) 250 MG tablet; Take 2 tablets the first day, then 1 tablet daily for 4 days. Results for orders placed or performed in visit on 02/28/18 POC Rapid Strep A Result Value Ref Range Rapid Strep A Screen Negative Negative, VALID, INVALID, Not Performed Internal Control Passed Passed Lot Number [id number] Expiration Date documented in this encounter Plan of Treatment Not on file documented as of this encounter Procedures Procedure Name Priority Date/Time Associated Diagnosis Comments POCT RAPID STREP A Routine 02/28/2018 11 :19 AM EDT Acute non-recurrent maxillary sinusitis documented in this encounter Results * POC Rapid Strep A (02/28/2018 11:19 AM EDT) Rapid Strep A Screen Negative Negative, VALID, INVALID, Not Performed [facility] Internal Control Passed Passed [facility] Lot Number [id number] [facility] Expiration Date [facility] Swab 02/28/2018 11:1 9 AM EDT Beto Quiroz APRN POINT OF CARE TEST ORDERABL ES Final Result [facility]
[address] [place] [address], documented in this encounter Visit Diagnoses Diagnosis Acute non-recurrent maxillary sinusitis- Primary documented in this encounter Care Teams Foundation Engineer Relationship Specialty Start Date End Date Julia Dumas MD PCP - General Family Medicine 02/28/18 documented as of this encounter
[2024-09-19 09:40] VITALS: BP 106/58; PULSE 60; RESP 20; TEMP 36.8; O2SAT 98; BMI 21.0
--- NOTE | 2024-09-19 10:03 | ED_ITS ---
Discharge Plan Referrals Follow up/Referrals: Provider,Referral, MD [Primary Care Provider] - See instructions Print Language Print Language: Bengali Discharge ED [facility] [place] General Stated complaint: abd pain Mode of Arrival: Ambulatory Source of Information: Patient Limitations: No Limitations Time Seen by Provider: 09/19/24 10:02 Description of Symptoms (Recalled from Triage Doc. by RN): PATIENT C/O PAIN TO MID ABDOMEN BETWEEN NAVAL AND BASE OF RIB CAGE. SHE STATES PAIN HAS BEEN INTERMITTIN X 3-4 DAYS AND FEELS LIKE A BURNING SENSATION. SHE REPORTS SOME DIARRHEA AND HAS NAUSEA WITH THE PAIN. HEENT Symptoms (Recalled from RN notes): No Resp Symptoms (Recalled from RN notes): No Skin Symptoms (Recalled from RN notes): No MS Symptoms (Recalled from RN notes): No Functional Status (Recalled from RN notes): WNL History of Present Illness Provider Complaint: 29-year-old female presents for right upper quad pain that radiates into her abdomen at times. Patient states pains been intermediate for the last 3 to 4 days feels like a burning sensation patient states the pain is coming more frequently. Patient states she does have some nausea. Patient states she was seen at the urgent treatment in [place] and was given her Zofran for nausea but she was unable to get it filled due to the pharmacy being closed. Patient states she was woken up last night due to the pain. Patient states anytime she eats or drinks the pain is worse. Related Data Allergies Allergy/AdvReac Type Severity Reaction Status Date / Time No Known Allergies Allergy Verified 08/21/20 10:21 Worker's Comp Is this a Worker's Comp case?: No [facility] Disclaimer: The information contained in this section may have been updated after the patient was seen, as this information can be updated by other users. 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) Smoking Status: Unknown if ever smoked alcohol intake: never current occupational status: other ROS Obtained: Yes Systems reviewed as appropriate & no additional complaints except as documented Gastrointestinal Gastrointestingal: Reports system reviewed and no additional complaints, except as documented, as per HPI, abdominal pain, diarrhea and nausea Physical Exam General General appearance: alert and in no apparent distress ENT ENT exam: Present normal exam Respiratory Respiratory exam: Present normal lung sounds bilaterally Cardiovascular Cardiovascular exam: Present regular rate and normal rhythm Abdominal Exam Abdominal exam: Present soft, tenderness, normal bowel sounds and Rodarte's sign Abdominal tenderness: Present RUQ Neurological Exam Neurological exam: Present alert and oriented X3 Medical Decision Making Medical Records Medical records reviewed: Yes I reviewed the patient's medical records. Screening: Per USPSTF and CDC recommendations, given the prevalence of disease in our region, it is our hospital?s policy to screen for HIV and viral Hepatitis for all patients aged 18 and over and those with ongoing risk factors. Georges Inquiry Pt receiving controlled substance: No Georges was queried for this patient: No Vital Signs: 09/19/24 09:40 Temperature 98.3 F Temperature Source Oral Pulse Rate [Left Brachial] 60 Respiratory Rate 20 Blood Pressure [Left Arm] 106/58 L Blood Pressure Mean [Left Arm] 74 Blood Pressure Source [Left Arm] Automatic Cuff Blood Pressure Position [Left Arm] Sitting 02 Sat by Pulse Oximetry 98 Oxygen Delivery Method Room Air Physician Consults Physician Consulted: Dr. Murray in the ER Time: 10:21 Reason -: Pt condition Comment/Response: Sent to the ER for evaluation
[2024-09-19 10:29] VITALS: BP 127/69; PULSE 76; RESP 16; TEMP 36.6; O2SAT 98; BMI 20.9
[2024-09-19 10:50] LABS: Microscopic, Urine URINE MICROSCOPIC (MICROSCOPIC)
[2024-09-19 10:54] LABS: Basophils # 0.1 K/mm3 (0-0.2); Basophils % 1.5 % (0.1-2.0); Eosinophils # 0.1 K/mm3 (0.0-0.4); Hemoglobin 15.5 g/dL (12.2-16.2); Lymphocytes # 2.1 K/mm3 (0.7-4.5); Mean Corpuscular HGB Conc 33.8 g/dL (31.8-35.4); Mean Corpuscular Hemoglobin 30.2 pg (27.0-31.2); Mean Corpuscular Volume 89.5 fl (81-99); Monocytes # 0.4 K/mm3 (0.1-1.0); Monocytes % 6.4 % (1.7-9.3); Neutrophils # 3.8 K/mm3 (1.8-7.8); Neutrophils % 58.1 % (37.0-80.0); Platelet Count 260 K/mm3 (142-424); Red Blood Count 5.14 M/mm3 (4.20-5.40); Red Cell Distribution Width 12.7 % (11.5-17.5); White Blood Count 6.5 K/mm3 (4.8-10.8)
[2024-09-19 10:55] LABS: Appearance,Urine CLEAR (Clear); Bilirubin,Urine Negative (Negative); Blood, Urine TRACE-I (Negative); Color,Urine YELLOW (Yellow); Glucose,Urine (UA) Negative (Negative); Ketones,Urine Negative (Negative); Leukocyte Esterase,Urine TRACE (Negative); Nitrate,Urine Negative (Negative); PH,Urine 6.5 (5.0-8.5); Protein,Urine Negative (Negative); Specific Gravity, Urine 1.025 (1.005-1.030); Urobilinogen,Urine 0.2 EU/dl (0.2)
[2024-09-19 10:56] LABS: Albumin Level 4.8 g/dl (3.5-5.0); Chloride 107 mmol/L (98-107)
[2024-09-19 10:57] LABS: Potassium 3.9 mmoL/L (3.5-5.1); Sodium 139 mmol/L (136-145)
[2024-09-19 10:59] LABS: Alanine Aminotransferase 18 U/L (12-78); Albumin/Globulin Ratio 1.6 (1.1-1.8); Alkaline Phosphatase 62 U/L (38-126); Anion Gap 11.9 mEq/L (5-15); Aspartate Amino Transferase 30 U/L (14-36); Bilirubin,Total 1.2 mg/dl (0.2-1.3); Blood Urea Nitrogen 17 mg/dl (7-17); Calcium 9.5 mg/dl (8.4-10.2); Carbon Dioxide 24 mmol/L (22.0-30.0); Creatinine Clearance Estimated 122 mL/min (50-200); Estimated Glomerular Filt Rate 119 ml/min (>60); GFR (African American) 144 ML/MIN (>60); Glucose 89 mg/dl (74-100); Lipase 40 U/L (23-300); Total Protein,Serum 7.8 g/dl (6.3-8.2)
[2024-09-19 11:00] LABS: Lactic Acid < 0.5 mmol/L (0.7-2.1)
--- NOTE | 2024-09-19 11:00 | [facility].EDGENADL ---
Discharge Plan Prescriptions Prescriptions: New esomeprazole magnesium 20 mg capsule,delayed release(DR/EC) 20 mg PO DAILY 56 Days Qty: 56 1RF Referrals Follow up/Referrals: Provider,Referral, MD [Primary Care Provider] - See instructions Activity Restrictions/Add. Instructions Additional Instructions/Restrictions: Call your family doctor to establish care for this visit to the emergency department and schedule follow-up within 48 hours to ensure improvement. If you have any worsening of your condition or any other concerning signs or symptoms, return to the emergency department or your primary care doctor for further evaluation. Acid medication each night for 2 to 6 weeks. Follow-up with your family doctor regarding this visit if continuing having pain. Clinical Impressions Clinical Impression: Gastritis Instructions Patient Instructions: DI for Acute Abdominal Pain Print Language Print Language: Amharic Discharge ED Provider: Trevor Acosta General Adult HPI General Chief complaint: Abdominal Pain Stated complaint: abd pain Time Seen by Provider: 09/19/24 10:02 Mode of Arrival: Ambulatory Source of Information: Patient Limitations: No Limitations Description of Symptoms (Recalled from ER Triage Doc. by RN): pt c/o ABD pain with nausa no vomiting x 3 days, increased pain after eating History of Present Illness HPI narrative: Please note that above description of symptoms, in this electronic medical record under categorization of recalled from ER triage doctor by RN are reflective of an initial nursing assessment, however, is not reflective of my full history and physical exam that was personally taken and clarified. Consequentially, this preceding description of symptoms, which may include the patient's categorized chief complaint in the EMR, do not reflect my personal clinical impression, and the ultimate description of history of present illness and patient stated complaints should be deferred to this section of the note. Unless stated otherwise or congruent with this section of the note, additional signs, symptoms, or incongruence should be interpreted as inaccurate with my clinical impression. Related Data Previous Rx's ?Medication ?Instructions ?Recorded esomeprazole magnesium 20 mg 20 mg PO DAILY 8 weeks #56 caps 09/19/24 capsule,delayed release Allergies Allergy/AdvReac Type Severity Reaction Status Date / Time No Known Allergies Allergy Verified 08/21/20 10:21 [facility] Disclaimer: The information contained in this section may have been updated after the patient was seen, as this information can be updated by other users. 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 , [employer]) Urinary tract infection Surgical History , [employer]) History of tubal ligation Social History (Updated 09/19/24 @ 10:22 by Mayda Castañeda ([facility]), [employer]) Smoking Status: Never smoker alcohol intake: never current occupational status: other Travel in the last 8 weeks: None ROS Obtained: Yes All systems reviewed & no additional complaints except as documented Physical Exam General General appearance: alert and in no apparent distress Head Head exam: atraumatic and normocephalic Eye Eye exam: Present normal appearance, PERRL and EOMI Neck Neck exam: Present normal inspection, full ROM and trachea midline Respiratory Respiratory exam: Absent respiratory distress, wheezes, stridor, accessory muscle use or prolonged expiratory phase Cardiovascular Cardiovascular exam: Present other (Pulses equal symmetric in upper and lower extremities) Abdominal Exam Abdominal exam: Present soft and tenderness; Absent distention, guarding, rebound or pulsatile mass Abdominal tenderness: Present epigastrium Extremities Exam Extremities exam: Absent edema Neurological Exam Neurological exam: Present alert, oriented X3 and CN II-XII intact; Absent motor sensory deficit Skin Skin exam: Present warm and dry; Absent diaphoresis or erythema Medical Decision Making Medical Records Medical records reviewed: Yes I reviewed the patient's medical records. Screening: Per USPSTF and CDC recommendations, given the prevalence of disease in our region, it is our hospital?s policy to screen for HIV and viral Hepatitis for all patients aged 18 and over and those with ongoing risk factors. Georges Inquiry Pt receiving controlled substance: No Georges was queried for this patient: No Vital Signs: 09/19/24 09:40 09/19/24 10:29 09/19/24 11:30 Temperature 98.3 F 97.9 F Temperature Source Oral Oral Pulse Rate 80 Pulse Rate [Left Brachial] 60 76 Respiratory Rate 20 16 16 Blood Pressure 112/80 Blood Pressure [Left Arm] 106/58 L 127/69 Blood Pressure Mean [Left Arm] 74 88 Blood Pressure Source [Left Arm] Automatic Cuff Blood Pressure Position [Left Arm] Sitting 02 Sat by Pulse Oximetry 98 98 98 Oxygen Delivery Method Room Air Room Air Lab Data Lab Results 09/19/24 10:38: WBC 6.5, RBC 5.14, Hgb 15.5, Hct 46.0, MCV 89.5, MCH 30.2, MCHC 33.8, RDW 12.7, Plt Count 260, MPV 7.0 L, Neut % (Auto) 58.1, Lymph % (Auto) 32.0, [place] % (Auto) 6.4, Eos % (Auto) 2.0, Baso % (Auto) 1.5, Neut # (Auto) 3.8, Lymph # (Auto) 2.1, [place] # (Auto) 0.4, Eos # (Auto) 0.1, Baso # (Auto) 0.1, APTT 29.1, Sodium 139, Potassium 3.9, Chloride 107, Carbon Dioxide 24, Anion Gap 11.9, BUN 17, Creatinine 0.60, Estimated Creat Clear 122, Estimated GFR 119, Est GFR ( Amer) 144, Glucose 89, Lactate < 0.5 L, Calcium 9.5, Total Bilirubin 1.2, AST 30, ALT 18, Alkaline Phosphatase 62, Troponin I < 0.01, Total Protein 7.8, Albumin 4.8, Globulin 3.0, Albumin/Globulin Ratio 1.6, Lipase 40, HCG, Quant < 2, HIV 1&2 Antibody Rapid Nonreactive 09/19/24 10:40: Urine Color Yellow, Urine Appearance Clear, Urine pH 6.5, Ur Specific [place] 1.025, Urine Protein Negative, Urine Glucose (UA) Negative, Urine Ketones Negative, Urine Blood Trace-i, Urine Nitrate Negative, Urine Bilirubin Negative, Urine Urobilinogen 0.2, Ur Leukocyte Esterase Trace, Urine RBC Occasional, Urine WBC None, Ur Squamous Epith Cells 5-10, Urine Bacteria Trace 09/19/24 10:38 09/19/24 10:38 Orders (Tests/Meds): ED MEDICATIONS Generic Name Dose Route Start Last Admin Trade Name Freq PRN Reason Stop Dose Admin Sodium Chloride 8 ml 09/19/24 11:02 09/19/24 11:27 Sodium Chloride 0.9% 10ml Vial IV 10/19/24 11:01 8 ml NEEDED PRN Administration dilute pepcid Discontinued Medications Generic Name Dose Route Start Last Admin Trade Name Freq PRN Reason Stop Dose Admin Al Hydrox/Mg Hydrox/Simethicone 30 ml 09/19/24 11:02 09/19/24 11:27 Aluminum/Magnesium/Simethicone 30ml Udc PO 09/19/24 11:03 30 ml ONCE ONE Administration Famotidine 20 mg 09/19/24 11:02 09/19/24 11:27 Famotidine 20mg/2ml Vial IV 09/19/24 11:03 20 mg ONCE ONE Administration ORDERS Category Date Time Status POCUS Point of Care (ER Only) Stat Exams 09/19/24 10:36 Taken Complete Blood Count Auto Diff Stat Lab 09/19/24 10:38 Completed Comprehensive Metabolic Panel Stat Lab 09/19/24 10:38 Completed HCG,Quantitative Stat Lab 09/19/24 10:38 Completed HIV (1&2) Antibody Rapid Stat Lab 09/19/24 10:38 Completed Hep C Ab with Reflex to RNA Stat Lab 09/19/24 10:38 Received Lactic Acid Stat Lab 09/19/24 10:38 Completed Lipase Stat Lab 09/19/24 10:38 Completed PTT [Activated Partial Thrombo Time] Stat Lab 09/19/24 10:38 Completed Troponin I Q3H Lab 09/19/24 13:45 Ordered Troponin I Q3H Lab 09/19/24 16:45 Ordered Troponin I Stat Lab 09/19/24 10:38 Completed Urinalysis and Microscopic Stat Lab 09/19/24 10:40 Completed Medical Decision Narrative: 29-year-old female history of tubal ligation presenting with abdominal pain. Patient states that she has had epigastric abdominal pain associated with eating since yesterday, 09/18. Epigastric, burning, mild, does not radiate. Hurts almost immediately after eating. Not having pain for a long period of time thereafter. It is constant, made worse with eating. No vomiting, blood in her stool or urine, urinary symptoms, fevers, chills, inability to tolerate p.o. intake, or any other relevant history. History was obtained via conversation with patient. On arrival, patient hemodynamically stable, alert, oriented x4, appropriate, GCS 15, moving all extremities spontaneously, pupils equal and reactive to light. Full physical exam performed and significant for very well-appearing 29-year-old female no acute distress. Abdomen is soft, minimally tender in epigastrium. No McBurney's point tenderness or Rodarte sign. No overlying skin change. No flank tenderness. Differential includes PUD, gastritis, enteritis, gastroenteritis, pancreatitis, SBO, colitis, diverticulitis, nephrolithiasis, UTI, , cholecystitis, choledocholithiasis, appendicitis, hepatitis, torsion, aortic pathology, mesenteric ischemia among others. Patient placed on continuous cardiac monitoring and continuous pulse ox with initial blood pressure 106/58, heart rate 60, saturation 98% on room air. Patient was given Maalox and Pepcid for symptomatic management and correction of underlying abnormalities. Workup independently interpreted nonactionable CBC or chemistry. Lipase negative, negative, urinalysis without concern for UTI. On independent interpretation of imaging, no acute right upper quadrant abnormality on [id number] ultrasound. On reevaluation, patient resting comfortably, still has intermittent burning, but able to tolerate p.o. intake and very well-appearing. Given patient presentation, workup, history, this most likely represents gastritis. Because patient at baseline without signs or symptoms of clinical decompensation, deemed appropriate for discharge. Results were relayed to patient who voiced understanding and were agreeable to outpatient management and follow up. I discussed my clinical impression with patient and answered all questions. At this time, the evidence for any other entities in the differential is insufficient to warrant any further testing or ED observation. This was explained as well. Advisory was given that persistent or worsening symptoms require further evaluation. I confirmed the understanding of this discussion. [employer] disclaimer Much of this encounter note is an electronic instrument panel assembler spoken language to printed text. Electronic instrument panel assembler of the spoken language may permit errors. Although I have reviewed the note, some errors may still exist. Procedures Limited Ultrasound Indication:: Limited RUQ ultrasound Indication: Epigastric abdominal pain Identified structures: -Gallbladder -Gallbladder wall -Common bile duct -Liver Findings: Sonographic Rodarte sign: Absent Gallstones: Absent Sludge: Absent Pericholecystic fluid: Absent Maximal GB wall thickness (mm) (normal is </= 3mm): Normal Common bile duct width (mm) (normal is </= 6mm): Normal Gallbladder width (cm) (normal is < 4cm): Normal Gallbladder length (cm) (normal is < 10cm): Normal Impression: Normal right upper quadrant ultrasound Images were saved to permanent archive The study was technically adequate CPT 59602-58 This study was performed by me, and I personally interpreted all images/videos. Based on my clinical judgement, these images were adequate and did not necessitate further imaging. Critical Care Critical Care Time Critical Care Time: No
[2024-09-19 11:01] LABS: Activated Partial Thrombo Time 29.1 seconds (22.8-30.6)
[2024-09-19 11:08] LABS: Bacteria,Urine Trace /lpf; RBC,Urine Occasional #/hpf (0-3)
[2024-09-19 11:12] LABS: Troponin I < 0.01 ng/ml (0.00-0.034)
[2024-09-19 11:19] LABS: HCG,Quantitative < 2 mIU/ml (0-5.42)
[2024-09-19] MEDS: FAMOTIDINE 20MG/2ML VIAL 20 MG IV (11:27)
[2024-09-19] MEDS: ALUMINUM/MAGNESIUM/SIMETHICONE 30ML UDC 30 ML PO (11:27)
[2024-09-19] MEDS: SODIUM CHLORIDE 0.9% 10ML VIAL 8 ML IV (11:27)
[2024-09-19 11:30] VITALS: BP 112/80; PULSE 80; RESP 16; O2SAT 98
[2024-09-19 12:17] LABS: HIV (1&2) Antibody Rapid NONREACTIVE (NONREACTIVE)
[2024-09-19 13:13] VITALS: BP 128/66; PULSE 95; RESP 18; TEMP 36.5; O2SAT 98
[2024-09-20 09:34] LABS: HCV Ab Non Reactive (Non Reactive)
== END 2024-09-19 13:16 | disposition home or self-care (01) ==
LOC: UTC 09:33 → ER 10:22
PROVIDERS: Emergency Provider Emergency Medicine
DX: K29.70 Gastritis, unspecified, without bleeding (principal); R10.13 Epigastric pain
CPT/HCPCS: 80053; 81001; 83605; 83690; 84484; 84702; 85025; 85730; 86803; 87389; 96374; 99283; S0028